=== PATIENT | female | born 1960 | race Caucasian/White ===

== ENCOUNTER 2016-10-23 14:05 | Inpatient (IN) | payer OTHER ==
[2016-10-23] MEDS ORDERED: BENADRYL INJ 50 MG VIAL IVP PRN (14:53)
[2016-10-23] MEDS ORDERED: TYLENOL 325 MG TAB PO PRN (14:53)
[2016-10-23] MEDS: NS 1000 ML 1,000 ML IV SCH (15:19)
[2016-10-23 15:25] VITALS: BMI 35.8
[2016-10-23 15:40] LABS: BASOPHILS # (AUTO) 0.1 X10^3/uL (0.0-0.1); BASOPHILS % (AUTO) 0.9 % (0.2-1.0); EOSINOPHILS # (AUTO) 0.2 x10^3/uL (0.0-0.2); EOSINOPHILS % (AUTO) 2.8 % (0.9-2.9); HEMATOCRIT 22.2 % (36.0-47.0); LYMPHOCYTES # (AUTO) 1.1 X10^3/uL (1.3-2.9); MEAN CORPUSCULAR HGB CONC 29.9 g/dL (33.0-35.0); MEAN CORPUSCULAR VOLUME 80.4 fL (80.0-100.0); MEAN PLATELET VOLUME 8.1 fL (7.4-11.0); MONOCYTES # (AUTO) 0.6 x10^3/uL (0.3-0.8); MONOCYTES % (AUTO) 9.6 % (0.0-13.0); NEUTROPHILS # (AUTO) 4.4 x10^3/uL (2.2-4.8); NEUTROPHILS % (AUTO) 68.7 % (42.0-75.0); PLATELET COUNT 209 X10^3/uL (150.0-450.0); RED BLOOD COUNT 2.76 X10^6/uL (3.5-5.4); RED CELL DISTRIBUTION WIDTH 20.2 % (11.6-16.5); WHITE BLOOD COUNT 6.4 X10^3/uL (3.6-10.0)
[2016-10-23 15:43] LABS: HEMOGLOBIN 6.6 g/dL (12.0-16.0)
[2016-10-23 15:55] LABS: ALANINE AMINOTRANSFERASE 35 Units/L (12-78); ALBUMIN 3.3 g/dL (3.4-5.0); ALKALINE PHOSPHATASE 83 Units/L (46-116); ASPARTATE AMINO TRANSFERASE 53 Units/L (15-37); BLOOD UREA NITROGEN 12 mg/dL (7-18); CALCIUM 8.9 mg/dL (8.5-10.1); CARBON DIOXIDE 30.2 mmol/L (21-32); CHLORIDE 105 mmol/L (98-107); CKMB % 3.5 % (<4); COR CA(FOR HYPOALB) 9.5 mg/dL (8.5-10.1); COR NA(FOR HYPERGLY) 145 mmol/L (136-145); CREATINE KINASE 29 Units/L (26-192); CREATINE KINASE MB < 1.0 ng/mL (0-4.0); GLUCOSE 229 mg/dL (65-99); SODIUM 142 mmol/L (136-145); TOTAL PROTEIN 8.1 g/dL (6.4-8.2); TROPONIN I 0.07 ng/mL (0-1.5); eGFR BLACK RACES > 60 (>60); eGFR NON BLACK RACES > 60 (>60)
[2016-10-23 15:59] LABS: ANISOCYTOSIS 1+; HYPOCHROMASIA 1+; PLATELET MORPHOLOGY COMMENT NORMAL (NORMAL)
[2016-10-23 16:21] LABS: IRON 19 ug/dL (50-175); TRANSFERRIN 448 mg/dL (202-364)
[2016-10-23 16:43] LABS: BILIRUBIN,URINE NEGATIVE (NEGATIVE); BLOOD/HEMOGLOBIN,URINE NEGATIVE (NEGATIVE); GLUCOSE, URINE 4+ (NEGATIVE); KETONES,URINE NEGATIVE (NEGATIVE); LEUKOCYTE ESTERASE ,URINE NEGATIVE (NEGATIVE); NITRITES,URINE NEGATIVE (NEGATIVE); PROTEIN,URINE NEGATIVE (NEGATIVE); UROBILINOGEN,URINE NORMAL (NORMAL)
[2016-10-23 16:51] LABS: APPEARANCE,URINE CLEAR (CLEAR); BACTERIA,URINE NEGATIVE /HPF (NEGATIVE); COLOR,URINE YELLOW (YELLOW); RBC,URINE RARE /HPF (NEGATIVE); SQUAMOUS EPITHELIAL CELL,UR FEW /HPF (NEGATIVE)
[2016-10-23] MEDS: NS 500 ML IV 500 ML IV ONE ×2 (17:05→23:45)
--- NOTE | 2016-10-23 18:03 | RAD ---
HISTORY: 56-year-old female with shortness of breath. Study: Single frontal view of the chest. Comparison: Chest radiograph May 02, 2016. Findings: The trachea is midline. The cardiac silhouette is stably enlarged. The lungs are clear without foc al infiltrate or effusion. Low lung volumes with bibasilar atelectasis and stable prominence of per ihilar lung markings with thickened interstitium. The bony thorax is unremarkable. IMPRESSION: 1. No acute cardiopulmonary disease. Reported By:
[2016-10-23] MEDS: PROTONIX INJ 40 MG VIAL IVP SCH (18:46)
[2016-10-23] MEDS ORDERED: HumuLIN R SC PRN (18:58)
[2016-10-23] MEDS: ROXICODONE TAB 15 MG PO PRN (19:09)
[2016-10-23] MEDS ORDERED: LASIX IVP ONE (21:00)
[2016-10-23] MEDS: PEPCID 20 MG IV PREMIX* 20 MG/50 ML BAG IV SCH (21:41)
[2016-10-23 21:43] LABS: CKMB % 3.3 % (<4); CREATINE KINASE 30 Units/L (26-192); CREATINE KINASE MB < 1.0 ng/mL (0-4.0); TROPONIN I 0.09 ng/mL (0-1.5)
[2016-10-23] MEDS ORDERED: NS 500 ML IV 0 ML IV ONE (23:22)
[2016-10-23] MEDS ORDERED: NS 500 ML IV 500 ML IV ONE (23:24)
[2016-10-24] MEDS: ROXICODONE TAB 15 MG PO PRN ×4 (00:57→19:25)
[2016-10-24 03:09] LABS: CREATINE KINASE 33 Units/L (26-192); CREATINE KINASE MB < 1.0 ng/mL (0-4.0); TROPONIN I 0.07 ng/mL (0-1.5)
[2016-10-24] MEDS: NS 1000 ML 1,000 ML IV SCH ×2 (04:22→17:11)
[2016-10-24 06:32] LABS: ALANINE AMINOTRANSFERASE 35 Units/L (12-78); ALBUMIN 3.4 g/dL (3.4-5.0); ALKALINE PHOSPHATASE 81 Units/L (46-116); ASPARTATE AMINO TRANSFERASE 53 Units/L (15-37); BLOOD UREA NITROGEN 15 mg/dL (7-18); CARBON DIOXIDE 27.8 mmol/L (21-32); CHLORIDE 102 mmol/L (98-107); COR NA(FOR HYPERGLY) 145 mmol/L (136-145); CREATININE 0.97 mg/dL (0.55-1.02); GLUCOSE 223 mg/dL (65-99); SODIUM 142 mmol/L (136-145); TOTAL PROTEIN 8.2 g/dL (6.4-8.2); eGFR BLACK RACES > 60 (>60); eGFR NON BLACK RACES > 60 (>60)
[2016-10-24 06:38] LABS: BASOPHILS # (AUTO) 0.1 X10^3/uL (0.0-0.1); BASOPHILS % (AUTO) 1.1 % (0.2-1.0); EOSINOPHILS # (AUTO) 0.2 x10^3/uL (0.0-0.2); EOSINOPHILS % (AUTO) 3.5 % (0.9-2.9); HEMATOCRIT 29.6 % (36.0-47.0); HEMOGLOBIN 9.1 g/dL (12.0-16.0); LYMPHOCYTES # (AUTO) 1.5 X10^3/uL (1.3-2.9); LYMPHOCYTES % (AUTO) 21.8 % (21.0-51.0); MEAN CORPUSCULAR HEMOGLOBIN 25.4 pg (27.0-34.0); MEAN CORPUSCULAR HGB CONC 30.6 g/dL (33.0-35.0); MEAN PLATELET VOLUME 8.6 fL (7.4-11.0); MONOCYTES # (AUTO) 0.5 x10^3/uL (0.3-0.8); MONOCYTES % (AUTO) 7.2 % (0.0-13.0); NEUTROPHILS # (AUTO) 4.5 x10^3/uL (2.2-4.8); NEUTROPHILS % (AUTO) 66.4 % (42.0-75.0); PLATELET COUNT 206 X10^3/uL (150.0-450.0); RED BLOOD COUNT 3.57 X10^6/uL (3.5-5.4); RED CELL DISTRIBUTION WIDTH 18.1 % (11.6-16.5); WHITE BLOOD COUNT 6.8 X10^3/uL (3.6-10.0)
[2016-10-24 07:27] LABS: HEMOGLOBIN A1C 5.8 % (4.5-6.2)
[2016-10-24 08:02] LABS: HYPOCHROMASIA SLIGHT; PLATELET MORPHOLOGY COMMENT NORMAL (NORMAL)
[2016-10-24 08:03] LABS: ANISOCYTOSIS SLIGHT
[2016-10-24] MEDS: PEPCID 20 MG IV PREMIX* 20 MG/50 ML BAG IV SCH ×2 (08:50→21:41)
[2016-10-24] MEDS: PROTONIX INJ 40 MG VIAL IVP SCH ×2 (08:50→21:40)
[2016-10-24] MEDS: PROzac PO SCH (08:50)
[2016-10-24] MEDS: COZAAR PO SCH (09:34)
[2016-10-24] MEDS: HEMOCYTE-PLUS PO SCH (09:34)
[2016-10-24] MEDS: LASIX PO SCH (09:34)
[2016-10-24] MEDS: VISTARIL PO PRN ×2 (10:23→21:42)
[2016-10-24 12:22] LABS: CRYPTOSPORIDIUM PARVUM ANTIGEN NEGATIVE (NEGATIVE); GIARDIA LAMBLIA ANTIGEN NEGATIVE (NEGATIVE)
--- NOTE | 2016-10-24 15:49 | DR.UPDATE ---
H&P Update History and Physical Update: HISTORY AND PHYSICAL UPDATE FOR ADMISSION 10/23/16 MS. NINA'S H&P WAS COMPLETED WITH A PRIOR VISIT IN OUR OFFICE PRIOR TO ADMISSION. SHE HAS BEEN SEEN AND EXAMINED WITH FOLLOWING CHANGES. PATIENT REPORTS SHORTNESS OF BREATH, FATIGUE, MALAISE, AND GENERALIZED WEAKNESS. SHE REPORTS SYMPTOMS HAVE GRADUALLY WORSENED. WE OBTAINED LABS IN OUR OFFICE THAT REPORTED A HEMOGLOBIN OF 6.4, WHICH WAS DOWN FROM 9.1 A COUPLE MONTHS AGO. WE WILL ADMIT PATIENT, START PEPCID, PROTONIX, TRANSFUSE 2 UNITS PRBC'S, AND CONTINUE TO MONITOR. WE WILL FOLLOW UP IN AM WITH LABS.
--- NOTE | 2016-10-24 15:56 | PCM.PROG ---
Progress Note - Progress Note for Day of Date: 10/24/16 - Subjective Subjective: PATIENT CONTINUES WITH WEAKNESS, FATIGUE, AND GENERALIZED WEAKNESS. SHE IS NOTED TO CONTINUE WITH SHORTNESS OF BREATH ON EXERTION. PATIENT HAS RECEIVED 2 UNITS PRBC'S. HEMOGLOBIN HAS IMPROVED FROM 6.6 TO 9.1. PATIENT REPORTS SHE HAS NOT HAD A HYSTERCTOMY AND NO LONGER HAS A MENSTRUAL CYCLE. PATIENT DENIES BLOODY STOOLS OR EMESIS. CBC WNL EXCEPT: H/H 9.1/29.6. CMP WNL EXCEPT: GLUCOSE 223, AST 53. CARDIAC ENZYMES WNL. EKG: SINUS RHYTHM, RATE 87. WE WILL OBTAIN STOOL STUDIES, START HEMOCYTE PLUS, AND CONTINUE TO MONITOR H/H. - Past Medical Family Social History Past Med/Fam/Surg Hx: No changes since H&P Allergies: Allergies No Known Drug Allergy Allergy (Verified 05/17/16 00:29) - Review of Systems ROS: No change since H&P - Vital Signs and I&O's Vital Signs: Temperature 98.1 F Pulse Rate [Right Brachial] 89 Respiratory Rate 20 Blood Pressure [Left Arm] 138/80 Blood Pressure [Right Arm] 166/94 Blood Pressure 143/76 O2 Sat by Pulse Oximetry 99 Intake and Output: Intake & Output 10/22/16 10/23/16 10/24/16 10/25/16 11:59 11:59 11:59 11:59 Intake Total 2285 1822 Output Total 500 3100 Balance 1785 -1278 - Physical Exam Oriented: Normal, Time, Person, Place Eyes: Normal. negative: Blurred Vision, Diplopia, Discharge, Pain, Redness, Photophobia Ear: Normal. negative: Swelling, Ecchymosis, Hemotypanum, Abrasion, Laceration Nose: Normal. negative: Injected, Discharge, Blood Throat: Normal. negative: Tonsillar Hypertrophy, Red, Exudate Respiratory: Normal Cardiovascular: Normal. negative: Murmur, Edema : Normal. negative: Dysuria, Hematuria, Frequency, Discharge, Bleeding, Auscultation: Bowel Sounds: Normal. negative: Bruit Palpation: Normal. negative: Spleen Enlarged, Liver Enlarged, Mass Pulsatile Tenderness: Normal. negative: Rebound, Guarding, Rigidity Skin: Decreased Turgur. negative: Diaphoresis, Wound, Bruising, Ecchymosis Musculoskeletal: Normal Psychiatric: Normal Mood Description: Calm, Appropriate Affect: Normal Speech Pattern: Clear, Appropriate - Laboratory and Diagnostics Result Diagrams: 10/24/16 03:50 10/24/16 03:50 Labs: Laboratory WBC 6.8 X10^3/uL (3.6-10.0) 10/24/16 03:50 RBC 3.57 X10^6/uL (3.5-5.4) 10/24/16 03:50 Hgb 9.1 g/dL (12.0-16.0) L 10/24/16 03:50 Hct 29.6 % (36.0-47.0) L 10/24/16 03:50 MCV 83.0 fL (80.0-100.0) 10/24/16 03:50 MCH 25.4 pg (27.0-34.0) L 10/24/16 03:50 MCHC 30.6 g/dL (33.0-35.0) L 10/24/16 03:50 RDW 18.1 % (11.6-16.5) H 10/24/16 03:50 Plt Count 206 X10^3/uL (150.0-450.0) 10/24/16 03:50 Plt Count Comment Adequate (ADEQUATE) 10/24/16 03:50 MPV 8.6 fL (7.4-11.0) 10/24/16 03:50 Neut % 66.4 % (42.0-75.0) 10/24/16 03:50 Lymph % 21.8 % (21.0-51.0) 10/24/16 03:50 Morrill % 7.2 % (0.0-13.0) 10/24/16 03:50 Eos % 3.5 % (0.9-2.9) H 10/24/16 03:50 Baso % 1.1 % (0.2-1.0) H 10/24/16 03:50 Neut # 4.5 x10^3/uL (2.2-4.8) 10/24/16 03:50 Lymph # 1.5 X10^3/uL (1.3-2.9) 10/24/16 03:50 Morrill # 0.5 x10^3/uL (0.3-0.8) 10/24/16 03:50 Eos # 0.2 x10^3/uL (0.0-0.2) 10/24/16 03:50 Baso # 0.1 X10^3/uL (0.0-0.1) 10/24/16 03:50 Absolute Nucleated RBC 0.2 /100WBC 10/24/16 03:50 Plt Morphology Comment Normal (NORMAL) 10/24/16 03:50 RBC Morphology Abnormal (NORMAL) A 10/24/16 03:50 Hypochromasia Slight A 10/24/16 03:50 Anisocytosis Slight A 10/24/16 03:50 Sodium 142 mmol/L (136-145) 10/24/16 03:50 Corrected Sodium 145 mmol/L (136-145) 10/24/16 03:50 Potassium 3.6 mmol/L (3.5-5.1) 10/24/16 03:50 Chloride 102 mmol/L (98-107) 10/24/16 03:50 Carbon Dioxide 27.8 mmol/L (21-32) 10/24/16 03:50 BUN 15 mg/dL (7-18) 10/24/16 03:50 Creatinine 0.97 mg/dL (0.55-1.02) 10/24/16 03:50 Est GFR (MDRD) Af Amer > 60 (>60) 10/24/16 03:50 Est GFR (MDRD) Non-Af > 60 (>60) 10/24/16 03:50 Glucose 223 mg/dL (65-99) H 10/24/16 03:50 Hemoglobin A1c 5.8 % (4.5-6.2) 10/24/16 03:50 Calcium 9.0 mg/dL (8.5-10.1) 10/24/16 03:50 Corrected Calcium TNP 10/24/16 03:50 Iron 19 ug/dL (50-175) L 10/23/16 15:20 Transferrin 448 mg/dL (202-364) H 10/23/16 15:20 Ferritin 10 ng/mL (8-252) 10/23/16 15:20 Total Bilirubin 0.60 mg/dL (0.2-1.0) 10/24/16 03:50 AST 53 Units/L (15-37) H 10/24/16 03:50 ALT 35 Units/L (12-78) 10/24/16 03:50 Alkaline Phosphatase 81 Units/L (46-116) 10/24/16 03:50 Creatine Kinase 33 Units/L (26-192) 10/24/16 02:30 CK-MB (CK-2) < 1.0 ng/mL (0-4.0) 10/24/16 02:30 CK/CKMB % Calc 3.0 % (<4) 10/24/16 02:30 Troponin I 0.07 ng/mL (0-1.5) 10/24/16 02:30 Total Protein 8.2 g/dL (6.4-8.2) 10/24/16 03:50 Albumin 3.4 g/dL (3.4-5.0) 10/24/16 03:50 Globulin 4.8 g/dL (2.5-4.5) H 10/24/16 03:50 Albumin/Globulin Ratio 0.7 Ratio (1.1-2.1) L 10/24/16 03:50 Vitamin B12 483 pg/mL (193-986) 10/23/16 15:20 Folate 15.7 ng/mL (>8.6) 10/23/16 15:20 Specimen Type Clean catch urine 10/23/16 16:28 Urine Color Yellow (YELLOW) 10/23/16 16:28 Urine Appearance Clear (CLEAR) 10/23/16 16:28 Urine pH 7.0 (5.0 - 8.0) 10/23/16 16:28 Ur Specific [place] 1.010 (1.000-1.030) 10/23/16 16:28 Urine Protein Negative (NEGATIVE) 10/23/16 16:28 Urine Glucose (UA) 4+ (NEGATIVE) 10/23/16 16:28 Urine Ketones Negative (NEGATIVE) 10/23/16 16:28 Urine Occult Blood Negative (NEGATIVE) 10/23/16 16:28 Urine Nitrite Negative (NEGATIVE) 10/23/16 16:28 Urine Bilirubin Negative (NEGATIVE) 10/23/16 16:28 Urine Urobilinogen Normal (NORMAL) 10/23/16 16:28 Ur Leukocyte Esterase Negative (NEGATIVE) 10/23/16 16:28 Urine RBC Rare /HPF (NEGATIVE) 10/23/16 16:28 Urine WBC Rare /HPF (NEGATIVE) 10/23/16 16:28 Ur Squamous Epith Cells Few /HPF (NEGATIVE) 10/23/16 16:28 Urine Bacteria Negative /HPF (NEGATIVE) 10/23/16 16:28 Ur Culture Indicated? No/not indicated 10/23/16 16:28 Stool Description 100g,formed,soft,healy 10/24/16 10:32 Stl Occult Blood (IFOB) Negative (NEGATIVE) 10/24/16 10:32 Stool for White Cells No wbc's seen (None) 10/24/16 10:32 Stl C. diff Tox B Gene Negative (NEGATIVE) 10/24/16 10:32 Stl C. diff [id number] Negative (NEGATIVE) 10/24/16 10:32 Cryptosporid parvum Ag Negative (NEGATIVE) 10/24/16 10:32 E. histolytica Antigen Negative (NEGATIVE) 10/24/16 10:32 Giardia lamblia Ag Negative (NEGATIVE) 10/24/16 10:32 Blood Type O POSITIVE 10/23/16 15:20 Antibody Screen Negative 10/23/16 15:20 Crossmatch See Detail 10/23/16 15:20 - Plan (1) Symptomatic anemia Status: Acute Plan: CONTINUE TO MONITOR H/H, CONTINUE SUPPLEMENTAL OXYGEN, OBTAIN STOOL STUDIES. (2) CHF (congestive heart failure) Status: Chronic Qualifiers: Congestive heart failure type: systolic Congestive heart failure chronicity : chronic Qualified Code(s): I50.22 - Chronic systolic (congestive) heart failure (3) GERD (gastroesophageal reflux disease) Status: Chronic Qualifiers: Esophagitis presence: with esophagitis Qualified Code(s): K21.0 - Gastro- esophageal reflux disease with esophagitis (4) History of anemia Status: Chronic (5) Hypertension Status: Chronic Qualifiers: Hypertension type: essential hypertension Qualified Code(s): I10 - Essential (primary) hypertension (6) Anxiety Status: Chronic (7) Back pain Status: Chronic Qualifiers: Back pain location: B Chronicity: C Back pain laterality: B Sciatica presence: S Sciatica laterality: S
[2016-10-24 16:01] LABS: HEMOGLOBIN 8.6 g/dL (12.0-16.0)
[2016-10-24] MEDS: SNACK - Diabetic Appropriate PO SCH (19:35)
[2016-10-25] MEDS: ROXICODONE TAB 15 MG PO PRN ×4 (01:39→20:35)
[2016-10-25 05:38] LABS: BASOPHILS # (AUTO) 0.1 X10^3/uL (0.0-0.1); BASOPHILS % (AUTO) 0.8 % (0.2-1.0); EOSINOPHILS # (AUTO) 0.3 x10^3/uL (0.0-0.2); EOSINOPHILS % (AUTO) 5.2 % (0.9-2.9); HEMATOCRIT 27.7 % (36.0-47.0); HEMOGLOBIN 8.5 g/dL (12.0-16.0); LYMPHOCYTES # (AUTO) 1.3 X10^3/uL (1.3-2.9); LYMPHOCYTES % (AUTO) 19.9 % (21.0-51.0); MEAN CORPUSCULAR HEMOGLOBIN 25.3 pg (27.0-34.0); MEAN CORPUSCULAR HGB CONC 30.9 g/dL (33.0-35.0); MEAN CORPUSCULAR VOLUME 82.1 fL (80.0-100.0); MEAN PLATELET VOLUME 8.3 fL (7.4-11.0); MONOCYTES # (AUTO) 0.4 x10^3/uL (0.3-0.8); MONOCYTES % (AUTO) 6.9 % (0.0-13.0); NEUTROPHILS # (AUTO) 4.4 x10^3/uL (2.2-4.8); NEUTROPHILS % (AUTO) 67.2 % (42.0-75.0); PLATELET COUNT 163 X10^3/uL (150.0-450.0); RED BLOOD COUNT 3.37 X10^6/uL (3.5-5.4); WHITE BLOOD COUNT 6.5 X10^3/uL (3.6-10.0)
[2016-10-25] MEDS: PATIENT'S HOME MEDICATION PO SCH (06:13)
[2016-10-25] MEDS: NS 1000 ML 1,000 ML IV SCH ×2 (06:13→20:34)
[2016-10-25 06:20] LABS: ALANINE AMINOTRANSFERASE 37 Units/L (12-78); ALKALINE PHOSPHATASE 71 Units/L (46-116); ASPARTATE AMINO TRANSFERASE 71 Units/L (15-37); BLOOD UREA NITROGEN 12 mg/dL (7-18); CALCIUM 8.6 mg/dL (8.5-10.1); CARBON DIOXIDE 28.9 mmol/L (21-32); CHLORIDE 105 mmol/L (98-107); COR CA(FOR HYPOALB) 9.4 mg/dL (8.5-10.1); COR NA(FOR HYPERGLY) 143 mmol/L (136-145); CREATININE 0.72 mg/dL (0.55-1.02); GLUCOSE 151 mg/dL (65-99); SODIUM 142 mmol/L (136-145); TOTAL PROTEIN 7.2 g/dL (6.4-8.2); eGFR BLACK RACES > 60 (>60); eGFR NON BLACK RACES > 60 (>60)
[2016-10-25 07:01] LABS: ANISOCYTOSIS SLIGHT; HYPOCHROMASIA SLIGHT; PLATELET MORPHOLOGY COMMENT NORMAL (NORMAL)
[2016-10-25] MEDS: HEMOCYTE-PLUS PO SCH (08:09)
[2016-10-25] MEDS: LASIX PO SCH (08:10)
[2016-10-25] MEDS: PROTONIX INJ 40 MG VIAL IVP SCH ×2 (08:10→20:36)
[2016-10-25] MEDS: PEPCID 20 MG IV PREMIX* 20 MG/50 ML BAG IV SCH ×2 (08:10→20:35)
[2016-10-25] MEDS: VISTARIL PO PRN ×2 (08:10→20:35)
[2016-10-25] MEDS: COZAAR PO SCH (08:10)
[2016-10-25] MEDS: PROzac PO SCH (08:10)
[2016-10-25] MEDS: SNACK - Diabetic Appropriate PO SCH (20:36)
[2016-10-26] MEDS: ROXICODONE TAB 15 MG PO PRN ×4 (02:27→20:59)
[2016-10-26 05:11] LABS: BASOPHILS # (AUTO) 0.1 X10^3/uL (0.0-0.1); EOSINOPHILS # (AUTO) 0.4 x10^3/uL (0.0-0.2); EOSINOPHILS % (AUTO) 5.8 % (0.9-2.9); HEMATOCRIT 27.6 % (36.0-47.0); HEMOGLOBIN 8.4 g/dL (12.0-16.0); LYMPHOCYTES # (AUTO) 1.1 X10^3/uL (1.3-2.9); LYMPHOCYTES % (AUTO) 17.5 % (21.0-51.0); MEAN CORPUSCULAR HEMOGLOBIN 25.4 pg (27.0-34.0); MEAN CORPUSCULAR HGB CONC 30.6 g/dL (33.0-35.0); MEAN CORPUSCULAR VOLUME 83.1 fL (80.0-100.0); MEAN PLATELET VOLUME 8.2 fL (7.4-11.0); MONOCYTES # (AUTO) 0.5 x10^3/uL (0.3-0.8); MONOCYTES % (AUTO) 7.7 % (0.0-13.0); NEUTROPHILS # (AUTO) 4.2 x10^3/uL (2.2-4.8); PLATELET COUNT 153 X10^3/uL (150.0-450.0); RED BLOOD COUNT 3.32 X10^6/uL (3.5-5.4); RED CELL DISTRIBUTION WIDTH 18.2 % (11.6-16.5); WHITE BLOOD COUNT 6.3 X10^3/uL (3.6-10.0)
[2016-10-26] MEDS: PATIENT'S HOME MEDICATION PO SCH (05:12)
[2016-10-26 05:19] LABS: ALANINE AMINOTRANSFERASE 43 Units/L (12-78); ALKALINE PHOSPHATASE 74 Units/L (46-116); ASPARTATE AMINO TRANSFERASE 76 Units/L (15-37); BLOOD UREA NITROGEN 13 mg/dL (7-18); CALCIUM 8.9 mg/dL (8.5-10.1); CHLORIDE 105 mmol/L (98-107); COR CA(FOR HYPOALB) 9.7 mg/dL (8.5-10.1); COR NA(FOR HYPERGLY) 143 mmol/L (136-145); CREATININE 0.77 mg/dL (0.55-1.02); GLUCOSE 164 mg/dL (65-99); SODIUM 141 mmol/L (136-145); TOTAL PROTEIN 7.3 g/dL (6.4-8.2); eGFR BLACK RACES > 60 (>60); eGFR NON BLACK RACES > 60 (>60)
[2016-10-26 05:50] LABS: ANISOCYTOSIS SLIGHT; HYPOCHROMASIA SLIGHT; PLATELET MORPHOLOGY COMMENT NORMAL (NORMAL)
[2016-10-26] MEDS: PEPCID 20 MG IV PREMIX* 20 MG/50 ML BAG IV SCH ×2 (08:43→20:59)
[2016-10-26] MEDS: PROzac PO SCH (08:43)
[2016-10-26] MEDS: PROTONIX INJ 40 MG VIAL IVP SCH ×2 (08:43→20:59)
[2016-10-26] MEDS: LASIX PO SCH (08:43)
[2016-10-26] MEDS: HEMOCYTE-PLUS PO SCH (08:44)
[2016-10-26] MEDS: COZAAR PO SCH (08:44)
[2016-10-26] MEDS: NS 1000 ML 1,000 ML IV SCH ×3 (08:45→20:59)
[2016-10-26] MEDS: SNACK - Diabetic Appropriate PO SCH (21:00)
[2016-10-27] MEDS: ROXICODONE TAB 15 MG PO PRN ×2 (03:41→10:15)
[2016-10-27 04:33] VITALS: BP 153/73
[2016-10-27 05:10] LABS: BASOPHILS # (AUTO) 0.1 X10^3/uL (0.0-0.1); EOSINOPHILS # (AUTO) 0.3 x10^3/uL (0.0-0.2); EOSINOPHILS % (AUTO) 5.5 % (0.9-2.9); HEMATOCRIT 28.2 % (36.0-47.0); HEMOGLOBIN 8.7 g/dL (12.0-16.0); LYMPHOCYTES # (AUTO) 1.4 X10^3/uL (1.3-2.9); LYMPHOCYTES % (AUTO) 22.7 % (21.0-51.0); MEAN CORPUSCULAR HEMOGLOBIN 25.4 pg (27.0-34.0); MEAN CORPUSCULAR VOLUME 82.1 fL (80.0-100.0); MEAN PLATELET VOLUME 8.8 fL (7.4-11.0); MONOCYTES # (AUTO) 0.6 x10^3/uL (0.3-0.8); MONOCYTES % (AUTO) 9.1 % (0.0-13.0); NEUTROPHILS # (AUTO) 3.9 x10^3/uL (2.2-4.8); NEUTROPHILS % (AUTO) 61.7 % (42.0-75.0); PLATELET COUNT 145 X10^3/uL (150.0-450.0); RED BLOOD COUNT 3.43 X10^6/uL (3.5-5.4); RED CELL DISTRIBUTION WIDTH 18.6 % (11.6-16.5); WHITE BLOOD COUNT 6.3 X10^3/uL (3.6-10.0)
[2016-10-27 05:21] LABS: ALANINE AMINOTRANSFERASE 44 Units/L (12-78); ALBUMIN 3.1 g/dL (3.4-5.0); ALKALINE PHOSPHATASE 75 Units/L (46-116); ASPARTATE AMINO TRANSFERASE 69 Units/L (15-37); BLOOD UREA NITROGEN 14 mg/dL (7-18); CALCIUM 9.1 mg/dL (8.5-10.1); CARBON DIOXIDE 29.3 mmol/L (21-32); CHLORIDE 105 mmol/L (98-107); COR CA(FOR HYPOALB) 9.8 mg/dL (8.5-10.1); COR NA(FOR HYPERGLY) 143 mmol/L (136-145); CREATININE 0.69 mg/dL (0.55-1.02); GLUCOSE 151 mg/dL (65-99); SODIUM 142 mmol/L (136-145); TOTAL PROTEIN 7.4 g/dL (6.4-8.2); eGFR BLACK RACES > 60 (>60); eGFR NON BLACK RACES > 60 (>60)
[2016-10-27] MEDS: PATIENT'S HOME MEDICATION PO SCH (05:35)
[2016-10-27 05:43] LABS: ANISOCYTOSIS SLIGHT; HYPOCHROMASIA SLIGHT; PLATELET MORPHOLOGY COMMENT NORMAL (NORMAL)
[2016-10-27] MEDS: PEPCID 20 MG IV PREMIX* 20 MG/50 ML BAG IV SCH (08:35)
[2016-10-27] MEDS: HEMOCYTE-PLUS PO SCH (08:35)
[2016-10-27] MEDS: COZAAR PO SCH (08:35)
[2016-10-27] MEDS: PROTONIX INJ 40 MG VIAL IVP SCH (08:36)
[2016-10-27] MEDS: PROzac PO SCH (08:37)
[2016-10-27] MEDS: LASIX PO SCH (08:37)
[2016-10-27] MEDS: NS 1000 ML 1,000 ML IV SCH (10:30)
== END 2016-10-27 12:45 | disposition home or self-care (01) | DRG 812 ==
LOC: MED/SURG 14:05
PROVIDERS: ADMIT Internal Medicine; ATTEND Internal Medicine
PROC: 30233N1 Transfusion of Nonautologous Red Blood Cells into Peripheral Vein, Percutaneous Approach (ICD-10-PCS; principal; 2016-10-23)
PROC: 30233N1 Transfusion of Nonautologous Red Blood Cells into Peripheral Vein, Percutaneous Approach (ICD-10-PCS; 2016-10-23)
DX: D64.89 Other specified anemias (principal); R06.02 Shortness of breath; R53.83 Other fatigue; R53.81 Other malaise; R53.1 Weakness; E11.65 Type 2 diabetes mellitus with hyperglycemia; I50.22 Chronic systolic (congestive) heart failure; K21.0 Gastro-esophageal reflux disease with esophagitis; I10 Essential (primary) hypertension; F41.8 Other specified anxiety disorders; M54.89 Other dorsalgia; B18.2 Chronic viral hepatitis C; E78.2 Mixed hyperlipidemia
CPT/HCPCS: 36415; 36430; 71010; 80053; 81001; 82270; 82550; 82553; 82607; 82728; 82746; 83036; 83540; 84466; 84484; 85014; 85018; 85025; 86850; 86900; 86901; 86922; 87045; 87205; 87328; 87329; 87336; 87427; 87493; 87899; 93005; 94760; A4216; A4222; C9113; P9016; Q0177; S0028; J1200; J1815; J1940

== ENCOUNTER 2017-01-08 11:22 | Inpatient (IN) | payer OTHER ==
[2017-01-08] MEDS ORDERED: NS 500 ML IV 500 ML IV ONE (12:15)
[2017-01-08 16:21] VITALS: BMI 34.3
[2017-01-08 16:23] LABS: BASOPHILS % (AUTO) 1.1 % (0.2-1.0); EOSINOPHILS # (AUTO) 0.3 x10^3/uL (0.0-0.2); EOSINOPHILS % (AUTO) 6.8 % (0.9-2.9); HEMATOCRIT 23.4 % (36.0-47.0); HEMOGLOBIN 7.8 g/dL (12.0-16.0); LYMPHOCYTES # (AUTO) 1.5 X10^3/uL (1.3-2.9); LYMPHOCYTES % (AUTO) 33.7 % (21.0-51.0); MEAN CORPUSCULAR HEMOGLOBIN 27.5 pg (27.0-34.0); MEAN CORPUSCULAR HGB CONC 33.1 g/dL (33.0-35.0); MEAN CORPUSCULAR VOLUME 83.2 fL (80.0-100.0); MEAN PLATELET VOLUME 8.2 fL (7.4-11.0); MONOCYTES # (AUTO) 0.4 x10^3/uL (0.3-0.8); MONOCYTES % (AUTO) 10.3 % (0.0-13.0); NEUTROPHILS # (AUTO) 2.1 x10^3/uL (2.2-4.8); NEUTROPHILS % (AUTO) 48.1 % (42.0-75.0); PLATELET COUNT 128 X10^3/uL (150.0-450.0); RED BLOOD COUNT 2.82 X10^6/uL (3.5-5.4); RED CELL DISTRIBUTION WIDTH 16.6 % (11.6-16.5); WHITE BLOOD COUNT 4.4 X10^3/uL (3.6-10.0)
[2017-01-08 16:35] LABS: ALANINE AMINOTRANSFERASE 25 Units/L (12-78); ALBUMIN 3.1 g/dL (3.4-5.0); ALKALINE PHOSPHATASE 64 Units/L (46-116); ASPARTATE AMINO TRANSFERASE 25 Units/L (15-37); BLOOD UREA NITROGEN 8 mg/dL (7-18); CALCIUM 8.6 mg/dL (8.5-10.1); CARBON DIOXIDE 33.1 mmol/L (21-32); CHLORIDE 103 mmol/L (98-107); COR CA(FOR HYPOALB) 9.3 mg/dL (8.5-10.1); CREATININE 0.81 mg/dL (0.55-1.02); GLUCOSE 97 mg/dL (65-99); SODIUM 143 mmol/L (136-145); TOTAL PROTEIN 7.3 g/dL (6.4-8.2); eGFR BLACK RACES > 60 (>60); eGFR NON BLACK RACES > 60 (>60)
[2017-01-08 16:46] LABS: ANISOCYTOSIS SLIGHT; HYPOCHROMASIA SLIGHT; PLATELET MORPHOLOGY COMMENT NORMAL (NORMAL); POIKILOCYTOSIS SLIGHT
[2017-01-08] MEDS: PEPCID 20 MG IV PREMIX* 20 MG/50 ML BAG IV SCH ×2 (16:46→21:54)
[2017-01-08] MEDS: NS 1000 ML 1,000 ML IV SCH (16:46)
[2017-01-08] MEDS ORDERED: K-LYTE EFFERVESCENT PO PRN (17:02)
[2017-01-08] MEDS ORDERED: POTASSIUM CHLORIDE LIQ 20 MEQ UDC PO PRN (17:02)
[2017-01-08] MEDS ORDERED: K-RIDER 10 MEQ/NS 100 ML 10 MEQ/100 ML BAG IV PRN (17:02)
[2017-01-08] MEDS: K-DUR TAB 20 MEQ PO PRN (17:49)
[2017-01-08] MEDS: TYLENOL 325 MG TAB PO PRN (18:02)
[2017-01-08] MEDS: BENADRYL INJ 50 MG VIAL IVP PRN (18:02)
--- NOTE | 2017-01-08 18:51 | DR.UPDATE ---
H&P Update History and Physical Update: MS. NINA WAS SEEN IN THE OFFICE TODAY. AN H&P WAS COMPLETED PRIOR TO ADMISSION. SHE HAS BASSAM SEEN AND EXAMINED WITH NO CHANGES NOTED. Changes noted: NO Yes with the following:
[2017-01-08] MEDS ORDERED: XANAX PO SCH (21:00)
[2017-01-08] MEDS: ROXICODONE TAB 5 MG PO PRN (21:55)
[2017-01-08] MEDS: PROTONIX TAB 40 MG PO SCH (21:55)
[2017-01-09] MEDS: NS 1000 ML 1,000 ML IV SCH (01:47)
[2017-01-09] MEDS: ROXICODONE TAB 5 MG PO PRN ×3 (03:30→13:55)
[2017-01-09 05:43] LABS: HEMOGLOBIN 8.9 g/dL (12.0-16.0)
[2017-01-09 08:07] LABS: EOSINOPHILS # (AUTO) 0.3 x10^3/uL (0.0-0.2); HEMOGLOBIN 8.9 g/dL (12.0-16.0); LYMPHOCYTES # (AUTO) 1.6 X10^3/uL (1.3-2.9); LYMPHOCYTES % (AUTO) 39.7 % (21.0-51.0); MEAN CORPUSCULAR HEMOGLOBIN 28.8 pg (27.0-34.0); MEAN CORPUSCULAR HGB CONC 34.1 g/dL (33.0-35.0); MEAN CORPUSCULAR VOLUME 84.4 fL (80.0-100.0); MEAN PLATELET VOLUME 8.3 fL (7.4-11.0); MONOCYTES # (AUTO) 0.3 x10^3/uL (0.3-0.8); MONOCYTES % (AUTO) 8.1 % (0.0-13.0); NEUTROPHILS # (AUTO) 1.7 x10^3/uL (2.2-4.8); NEUTROPHILS % (AUTO) 43.2 % (42.0-75.0); PLATELET COUNT 114 X10^3/uL (150.0-450.0); RED BLOOD COUNT 3.08 X10^6/uL (3.5-5.4); RED CELL DISTRIBUTION WIDTH 15.9 % (11.6-16.5)
[2017-01-09] MEDS: K-DUR TAB 20 MEQ PO PRN (08:16)
[2017-01-09] MEDS: PROTONIX TAB 40 MG PO SCH (08:16)
[2017-01-09] MEDS: PEPCID 20 MG IV PREMIX* 20 MG/50 ML BAG IV SCH (08:17)
[2017-01-09 08:18] LABS: ALANINE AMINOTRANSFERASE 20 Units/L (12-78); ALBUMIN 2.7 g/dL (3.4-5.0); ALKALINE PHOSPHATASE 53 Units/L (46-116); ASPARTATE AMINO TRANSFERASE 24 Units/L (15-37); BLOOD UREA NITROGEN 9 mg/dL (7-18); CARBON DIOXIDE 29.3 mmol/L (21-32); CHLORIDE 108 mmol/L (98-107); CREATININE 0.81 mg/dL (0.55-1.02); GLUCOSE 110 mg/dL (65-99); SODIUM 144 mmol/L (136-145); TOTAL PROTEIN 6.4 g/dL (6.4-8.2); eGFR BLACK RACES > 60 (>60); eGFR NON BLACK RACES > 60 (>60)
[2017-01-09] MEDS ORDERED: CYMBALTA PO SCH (09:00)
[2017-01-09] MEDS ORDERED: PATIENT'S HOME MEDICATION (Misc Home Med 1 TAB) PO SCH (09:00)
[2017-01-09] MEDS ORDERED: HEMOCYTE-PLUS PO SCH (09:00)
[2017-01-09] MEDS ORDERED: COZAAR PO SCH (09:00)
[2017-01-09] MEDS ORDERED: NS 500 ML IV 500 ML IV ONE ×2 (10:59→11:02)
[2017-01-09] MEDS: BENADRYL INJ 50 MG VIAL IVP PRN (11:03)
[2017-01-09] MEDS: TYLENOL 325 MG TAB PO PRN (11:03)
--- NOTE | 2017-01-09 13:55 | US ---
HISTORY: Anemia, pelvic pain. Study: Ultrasound of the pelvis Comparison: No priors Technique: transabdominal grayscale and color Doppler imaging of the pelvis is provided. Findings: The uterus measures 3.9 x 4.3 x 6.5 centimeters. Endometrium measures 4 millimeters and is empty. A small area of increased echogenicity is present within the uterine body in the myometrium posteriorl y. This may represent a small fibroid. This measures only about 2.2 centimeters in maximum dimension . Both ovaries are small. The right ovary measures 18 x 26 x 22 millimeters. The left ovary measures 19 x 29 x 32 millimeters. No solid mass is seen. Ovarian color Doppler studies are normal. There is no evidence of free cul-de-sac fluid. IMPRESSION: Findings likely indicating a small myometrial fibroid posteriorly. No leak endometrial thickening is seen. The ovaries are normal. Reported By:
[2017-01-09 16:28] VITALS: BP 157/76
[2017-01-09 17:48] LABS: HEMATOCRIT 34.4 % (36.0-47.0); HEMOGLOBIN 11.7 g/dL (12.0-16.0)
--- NOTE | 2017-01-09 23:33 | DR.CARTERD ---
- Discharge Summary for: Discharge Summary for Date of:: 01/09/17 - Admission Date Date of Admission: 01/08/17 - Admission Diagnoses Admission Diagnosis: (1) ANEMIA (2) SHORTNESS OF BREATH (3) GENERALIZED WEAKNESS (4) FATIGUE (5) HISTORY OF ANEMIA (6) GERD (7) HISTORY OF HYPERTENSION (8) H/O CHF (9) ANXIETY - Discharge Date Discharge Date: 01/09/17 - Discharge Diagnoses Discharge Diagnosis: (1) ANEMIA (2) SHORTNESS OF BREATH (3) GENERALIZED WEAKNESS (4) FATIGUE (5) HISTORY OF ANEMIA (6) GERD (7) HISTORY OF HYPERTENSION (8) H/O CHF (9) ANXIETY - Hospital Course Hospital Course: Patient presented to the hospital as a direct admission after being seen in the office for a follow up visit today with reports of weakness. Patient reported back pain and bilateral foot pain. Patient was noted with 1+ pitting edema to lower extremities. Patient underwent outpatient labs which revealed a hemoglobin of 7.3. Patient therefore admitted to the hospital for further evaluation and treatment of anemia. On arrival to the hospital labs obtained revealed a hemoglobin of 7.8. Patient received two units of PRBCs and monitored serial H&Hs. Patient's hemoglobin improved to 8.9. We transfused an additional two units of PRBC's for a total of four units. Hemoglobin improved to 11.7 and we planned for discharge. Instructions for medications and follow up were given to patient and family, both voiced understanding. Patient was discharged home in stable condition with family. - Discharge Medications Discharge Medications: Duloxetine HCl [CYMBALTA 30 MG *] 30 mg PO DAILY 01/08/17 [History] Famotidine [Pepcid] 20 mg PO BID #60 tablet 01/09/17 [Rx] Gi Cocktail [LEVSIN/Maalox/Lidoc Visc (GI COCKTAIL) *] 10 ml PO QID #90 ml 01/09 [Rx] Pantoprazole Sodium 40 mg [Protonix Tab 40 mg] 40 mg PO BID #60 tab 01/09/17 [Rx ] - Discharge Disposition Discharge Disposition: Patient is to follow up in our office on 01/15/[address] Lee in one week.
== END 2017-01-09 17:55 | disposition home or self-care (01) | DRG 812 ==
LOC: ICU 11:22
PROVIDERS: ADMIT Internal Medicine; ATTEND Internal Medicine
PROC: 30233N1 Transfusion of Nonautologous Red Blood Cells into Peripheral Vein, Percutaneous Approach (ICD-10-PCS; principal; 2017-01-08)
PROC: 30233N1 Transfusion of Nonautologous Red Blood Cells into Peripheral Vein, Percutaneous Approach (ICD-10-PCS; 2017-01-09)
PROC: 30233N1 Transfusion of Nonautologous Red Blood Cells into Peripheral Vein, Percutaneous Approach (ICD-10-PCS; 2017-01-09)
PROC: 30233N1 Transfusion of Nonautologous Red Blood Cells into Peripheral Vein, Percutaneous Approach (ICD-10-PCS; 2017-01-09)
DX: D64.89 Other specified anemias (principal); E55.9 Vitamin D deficiency, unspecified; E78.2 Mixed hyperlipidemia; E66.9 Obesity, unspecified; I10 Essential (primary) hypertension; E11.65 Type 2 diabetes mellitus with hyperglycemia; R52 Pain, unspecified; R06.02 Shortness of breath; R53.83 Other fatigue; K21.9 Gastro-esophageal reflux disease without esophagitis; F41.8 Other specified anxiety disorders; R60.0 Localized edema
CPT/HCPCS: 36415; 36430; 76856; 80053; 82270; 84132; 85014; 85018; 85025; 86850; 86900; 86901; 86922; A4222; P9016; S0028; J1200

== ENCOUNTER 2017-03-13 19:32 | Emergency (ER) | payer OTHER ==
[2017-03-13 19:40] VITALS: BP 180/92; BMI 32.4
[2017-03-13] MEDS ORDERED: PHENERGAN INJ 25 MG IM ONE (20:22)
--- NOTE | 2017-03-13 20:39 | DR.GENAD ---
HPI - HPI Comment HPI Comment: Patient complains of being nauseated with stomach feeling like he is going to vomit but she has not vomited . but has been having diarrhea. States she can drink water and farooq rober and it will stay down. States she is a patient of Dr. Castro. States she has been dizzy. States she has been trying to wean herself from Oxycontin that she has been on for years. States she has had surgery on her right foot and has been taking pain pills for that. She is having left leg swelling with erythema. States she is taking medicine for her stomach from Dr. Castro and she think it is protonix and Lomotil. - Complaint/Symptoms Chief Complaint:: pt states that she has been feeling light headed and nausous all day today. denies nausea. diarrhea began yesterday Self Treatment fo Chief Complaint: otc diarrheals not helping - Nurses notes reviewed Nurses Notes Review: Yes - Source History Provided: Patient - Mode of Arrival Mode of Arrival: Wheelchair - Timing Onset of Chief Complaint: 03/13/17 Came on: Suddenly - Duration Duration: Intermittent How lon Duration: Days - Location Location: diffuse a - Severity Severity: Moderate - Modifying Factors Worsens:: movement Improves:: nothing PMH - PMH Past Medical History: Yes Past Medical History: CHF, Hypertension Past Medical History Comment: "hemoglobin problem" Past Surgical History: Yes Surgical History: SPINNER CAP FRAME Surgery, Ortho Surgery - Family History History of Family Medical Conditions: Yes Family Medical History: Diabetes Mellitus, Cancer, [place], Heart Failure, Hypertension - Social History Do you use any recreational Drugs:: No - infectious screening Have you traveled outside the country in the last 6 months?: No ROS - Review of Systems Constitutional: No Symptoms Reported, Weakness, Loss of Appetite Eyes: No Symptoms Reported. negative: See HPI, Eye Pain, Blurred Vision, Tearing, Discharge, Photophobia, Diplopia, Other ENTM: No Symptoms Reported Respiratoy: No Symptoms Reported, See HPI, Non-Productive Cough Cardiovascular: No Symptoms Reported Gastrointestinal/Abdominal: No Symptoms Reported, Abdominal Pain, Diarrhea, Nausea, Vomiting Genitourinary: No Symptoms Reported Neurological: No Symptoms Reported Musculoskeletal: No Symptoms Reported Integumentary: No Symptoms Reported Hematologic/Lymphatic: No Symptoms Reported Endocrine: No Symptoms Reported Psychiatric: No Symptoms Reported PE - Vital Signs Vitals: Temperature 98.7 F Pulse Rate 112 Respiratory Rate 18 Blood Pressure [Left Arm] 153/73 Blood Pressure [Right Arm] 157/76 Blood Pressure 180/92 O2 Sat by Pulse Oximetry 97 - General Limitations: No Limitations General Appearance: Alert, In Distress (mild) - Head Head Exam: Normal Inspection, Atraumatic, Normocephalic - Eyes Eye exam: Normal Appearance, PERRL, EOMI. negative: Scleral Icterus, Conjunctival Injection, Nystagmus, Miosis, Mydrasis, Periorbital Swelling, Periorbital Tenderness, Other - ENT ENT Exam: Normal Exam, Normal Oropharynx, Normal External Ear Exam, Mucous Membranes Moist, TM's Normal Bilaterally External Ear Exam: Normal External Inspection TM/Canal Exam: Bilateral Normal Nose Exam: Normal Nose Exam Mouth Exam: Normal Inspection Throat Exam: Normal Inspection - Neck Neck Exam: Normal Inspection, Full ROM, Trachea Midline - Chest Chest Inspection: Normal Inspection - Respiratory Respiratory Exam: Normal Lung Sounds Bilat Respiratory Exam: Bilateral Clear to Auscultation - Cardiovascular Cardiovascular Exam: Regular Rate, Normal Rhythm, Normal Heart Sounds - Abdominal Exam Abdominal Exam: Normal Inspection, Normal Bowel Sounds, Soft, Tenderness, Guarding, Dimnished Bowel Sounds Abdominal Tenderness: Epigastrium, Suprapubic - Extremities Extremities Exam: Normal Inspection, Full ROM, Tenderness (right leg with tenderness and slight erythema), Normal Capillary Refill - Back Back Exam: Normal Inspection, Full ROM - Neurologic Neurological Exam: Alert, Oriented X3, CN II-XII Intact, Normal Gait, Reflexes Normal - Psychiatric Psychiatric Exam: Normal Affect, Normal Mood - Skin Skin Exam: Warm, Dry, Intact, Normal Color, Rash, Erythema (right lower leg with erythema and tenderness) ROR - Labs Reviewed Laboratory Results Reviewed?: Yes (all labs and x-ray results reviewed and discussed with pataient) Result Diagrams: 03/13/17 20:36 03/13/17 20:36 Laboratory: WBC 5.6 X10^3/uL (3.6-10.0) 03/13/17 20:36 RBC 4.44 X10^6/uL (3.5-5.4) 03/13/17 20:36 Hgb 13.6 g/dL (12.0-16.0) 03/13/17 20:36 Hct 40.1 % (36.0-47.0) 03/13/17 20:36 MCV 90.3 fL (80.0-100.0) 03/13/17 20:36 MCH 30.6 pg (27.0-34.0) 03/13/17 20:36 MCHC 33.9 g/dL (33.0-35.0) 03/13/17 20:36 RDW 17.9 % (11.6-16.5) H 03/13/17 20:36 Plt Count 216 X10^3/uL (150.0-450.0) 03/13/17 20:36 MPV 7.5 fL (7.4-11.0) 03/13/17 20:36 Neut % 64.3 % (42.0-75.0) 03/13/17 20:36 Lymph % 27.4 % (21.0-51.0) 03/13/17 20:36 Barton % 6.3 % (0.0-13.0) 03/13/17 20:36 Eos % 1.1 % (0.9-2.9) 03/13/17 20:36 Baso % 0.9 % (0.2-1.0) 03/13/17 20:36 Neut # 3.6 x10^3/uL (2.2-4.8) 03/13/17 20:36 Lymph # 1.5 X10^3/uL (1.3-2.9) 03/13/17 20:36 Barton # 0.4 x10^3/uL (0.3-0.8) 03/13/17 20:36 Eos # 0.1 x10^3/uL (0.0-0.2) 03/13/17 20:36 Baso # 0.1 X10^3/uL (0.0-0.1) 03/13/17 20:36 Absolute Nucleated RBC 0.0 /100WBC 03/13/17 20:36 D-Dimer 481 ng/mL (0-400) H* 03/13/17 20:36 Sodium 144 mmol/L (136-145) 03/13/17 20:36 Corrected Sodium 146 mmol/L (136-145) H 03/13/17 20:36 Potassium 3.5 mmol/L (3.5-5.1) 03/13/17 20:36 Chloride 105 mmol/L (98-107) 03/13/17 20:36 Carbon Dioxide 25.5 mmol/L (21-32) 03/13/17 20:36 BUN 12 mg/dL (7-18) 03/13/17 20:36 Creatinine 0.93 mg/dL (0.55-1.02) 03/13/17 20:36 Est GFR (MDRD) Af Amer > 60 (>60) 03/13/17 20:36 Est GFR (MDRD) Non-Af > 60 (>60) 03/13/17 20:36 Glucose 172 mg/dL (65-99) H 03/13/17 20:36 Calcium 9.9 mg/dL (8.5-10.1) 03/13/17 20:36 Corrected Calcium TNP 03/13/17 20:36 Total Bilirubin 0.40 mg/dL (0.2-1.0) 03/13/17 20:36 AST 39 Units/L (15-37) H 03/13/17 20:36 ALT 29 Units/L (12-78) 03/13/17 20:36 Alkaline Phosphatase 67 Units/L (46-116) 03/13/17 20:36 Total Protein 8.4 g/dL (6.4-8.2) H 03/13/17 20:36 Albumin 3.7 g/dL (3.4-5.0) 03/13/17 20:36 Globulin 4.7 g/dL (2.5-4.5) H 03/13/17 20:36 Albumin/Globulin Ratio 0.8 Ratio (1.1-2.1) L 03/13/17 20:36 Amylase 67 Units/L (25-115) 03/13/17 20:36 Lipase 186 Units/L (73-393) 03/13/17 20:36 - XRAY XRAY Interpreted by: Radiologist (abdominal series: Large hiatal hernia. No evidence for acute abdominal or chest process) XRAY Findings: Doppler venous studies: Negative for DVT. - Diagnosis Discharge Problem: Gastroenteritis, Hiatal hernia, Essential hypertension, early cellulits left leg, Hyperglycemia - Discharge Plan Disposition: 01 HOME, SELF-CARE Condition: Stable Prescriptions: Ciprofloxacin HCl [CIPRO 500 MG TAB *] 500 mg PO Q12H #20 tab - Follow ups/Referrals Follow ups/Referrals: Noe Castro [Primary Care Provider] - 3 days - Instructions Instructions: Viral Gastroenteritis, Adult, [id number], Cellulitis, Adult, [id number], Hiatal Hernia, Hyperglycemia, Hypertension, [id number]
[2017-03-13 20:46] LABS: BASOPHILS # (AUTO) 0.1 X10^3/uL (0.0-0.1); BASOPHILS % (AUTO) 0.9 % (0.2-1.0); EOSINOPHILS # (AUTO) 0.1 x10^3/uL (0.0-0.2); EOSINOPHILS % (AUTO) 1.1 % (0.9-2.9); HEMATOCRIT 40.1 % (36.0-47.0); HEMOGLOBIN 13.6 g/dL (12.0-16.0); LYMPHOCYTES # (AUTO) 1.5 X10^3/uL (1.3-2.9); LYMPHOCYTES % (AUTO) 27.4 % (21.0-51.0); MEAN CORPUSCULAR HEMOGLOBIN 30.6 pg (27.0-34.0); MEAN CORPUSCULAR HGB CONC 33.9 g/dL (33.0-35.0); MEAN CORPUSCULAR VOLUME 90.3 fL (80.0-100.0); MEAN PLATELET VOLUME 7.5 fL (7.4-11.0); MONOCYTES # (AUTO) 0.4 x10^3/uL (0.3-0.8); MONOCYTES % (AUTO) 6.3 % (0.0-13.0); NEUTROPHILS # (AUTO) 3.6 x10^3/uL (2.2-4.8); NEUTROPHILS % (AUTO) 64.3 % (42.0-75.0); PLATELET COUNT 216 X10^3/uL (150.0-450.0); RED BLOOD COUNT 4.44 X10^6/uL (3.5-5.4); RED CELL DISTRIBUTION WIDTH 17.9 % (11.6-16.5); WHITE BLOOD COUNT 5.6 X10^3/uL (3.6-10.0)
[2017-03-13 20:56] LABS: ALANINE AMINOTRANSFERASE 29 Units/L (12-78); ALBUMIN 3.7 g/dL (3.4-5.0); ALKALINE PHOSPHATASE 67 Units/L (46-116); AMYLASE 67 Units/L (25-115); ASPARTATE AMINO TRANSFERASE 39 Units/L (15-37); BLOOD UREA NITROGEN 12 mg/dL (7-18); CALCIUM 9.9 mg/dL (8.5-10.1); CARBON DIOXIDE 25.5 mmol/L (21-32); CHLORIDE 105 mmol/L (98-107); COR NA(FOR HYPERGLY) 146 mmol/L (136-145); CREATININE 0.93 mg/dL (0.55-1.02); LIPASE 186 Units/L (73-393); SODIUM 144 mmol/L (136-145); TOTAL PROTEIN 8.4 g/dL (6.4-8.2); eGFR BLACK RACES > 60 (>60); eGFR NON BLACK RACES > 60 (>60)
[2017-03-13] MEDS ORDERED: PHENERGAN INJ 25 MG ONE (21:10)
--- NOTE | 2017-03-13 22:22 | RAD ---
Acute abdominal series with single view chest Indication: Abdominal pain. Nausea. Comparison: Radiograph 10/23/2016 Findings: Mild cardiac silhouette enlargement is unchanged. The lungs are essentially clear without o vert edema or focal infiltrates. No large pleural effusion. There is a large hiatal hernia of the sto mach, similar to prior. The bowel gas pattern is normal. No suspicious calcifications or free air identified. Impression: No evidence for acute abdominal or chest process. Large hiatal hernia. Stable cardiomegaly. Reported By:
[2017-03-13] MEDS ORDERED: NS 1/2 1000 ML IV 1,000 ML IV ONE (22:33)
[2017-03-13] MEDS ORDERED: NS 1000 ML 500 ML IV ONE (22:51)
--- NOTE | 2017-03-13 23:44 | VAS ---
HISTORY: Left leg pain, swelling Study: Left lower extremity venous Doppler ultrasound Comparison: None TECHNIQUE: Multiple zafar scale and color flow Doppler images of the deep venous system were obtained of the right and left lower extremity. FINDINGS: The deep venous system of the right and left lower extremities were evaluated from the level of the c ommon femoral vein through the popliteal vein. Normal color flow and augmentation can be observed. In addition, normal compression is seen throughout the deep venous system. IMPRESSION: 1. Negative for DVT. Reported By:
[2017-03-13] MEDS ORDERED: LEVAQUIN TAB 500 MG PO STA (23:55)
== END 2017-03-14 00:15 | disposition home or self-care (01) ==
LOC: ER 19:43
DX: K52.89 Other specified noninfective gastroenteritis and colitis (principal); K44.9 Diaphragmatic hernia without obstruction or gangrene; L03.116 Cellulitis of left lower limb; I10 Essential (primary) hypertension; I51.7 Cardiomegaly; R73.9 Hyperglycemia, unspecified; R79.1 Abnormal coagulation profile
CPT/HCPCS: 36415; 74022; 80053; 82150; 83690; 85025; 85378; 93970; 96365; 96372; 99283; A4222; J2550

== ENCOUNTER 2017-04-04 15:23 | Emergency (ER) | payer OTHER ==
[2017-04-04 15:42] VITALS: BP 118/52; BMI 32.0
[2017-04-04] MEDS ORDERED: CLEOCIN 300 MG IV PREMIX 300 MG/50 ML BAG IV ONE (17:53)
--- NOTE | 2017-04-04 17:55 | DR.GENAD ---
HPI - PCP Primary Care Physician: DR. STEVENS - Complaint/Symptoms Chief Complaint Doctors Comments: Patient presents with bilateral lower extremity pain and erythema for alteast one according to paitine. The pain is sharp, worse with ambulation, mildly severe. 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 Past Surgical History Comment: SURGERY ON BOTH FEET, TUBALIGATION - Family History History of Family Medical Conditions: Yes Family Medical History: Diabetes Mellitus, Cancer, [place], Heart Failure - Social History Does patient currently use any type of tobacco product: No Have you used tobacco products in the last 12 months: No Type of Tobacco Use: None Do you use any recreational Drugs:: No Lives With: Family Lives Where: Home - infectious screening In the last 2 months have you had wt loss of >10#?: NO Have you had fever, night sweats or hemotysis?: No Have you traveled outside the country in the last 6 months?: No Isolation: Standard ROS - Review of Systems Eyes: No Symptoms Reported ENTM: No Symptoms Reported Respiratoy: No Symptoms Reported Cardiovascular: No Symptoms Reported Gastrointestinal/Abdominal: No Symptoms Reported Genitourinary: No Symptoms Reported Neurological: No Symptoms Reported Musculoskeletal: No Symptoms Reported Integumentary: No Symptoms Reported Hematologic/Lymphatic: No Symptoms Reported Endocrine: No Symptoms Reported Psychiatric: No Symptoms Reported All Other Systems: Reviewed and Negative PE - Vital Signs Vitals: Temperature 98.2 F Pulse Rate [Right Brachial] 86 Pulse Rate 86 Respiratory Rate 20 Blood Pressure [Left Arm] 153/73 Blood Pressure [Right Arm] 118/52 Blood Pressure 118/52 O2 Sat by Pulse Oximetry 98 - General Limitations: No Limitations General Appearance: Alert, In No Apparent Distress - Head Head Exam: Normal Inspection, Atraumatic - ENT ENT Exam: Normal Exam External Ear Exam: Normal External Inspection TM/Canal Exam: Bilateral Normal Nose Exam: Normal Nose Exam Mouth Exam: Normal Inspection Throat Exam: Normal Inspection - Neck Neck Exam: Normal Inspection - Chest Chest Inspection: Normal Inspection - Respiratory Respiratory Exam: Normal Lung Sounds Bilat Respiratory Exam: Bilateral Clear to Auscultation - Cardiovascular Cardiovascular Exam: Regular Rate, Normal Rhythm - Abdominal Exam Abdominal Exam: Normal Inspection, Normal Bowel Sounds Abdominal Tenderness: negative: RUQ, RLQ, LUQ, LLQ, Epigastrium, Suprapubic, Diffuse, Mild, Moderate, Severe, Other - Extremities Extremities Exam: Normal Inspection, Tenderness (erythema bilateral mid lower extremity), Edema - Back Back Exam: Normal Inspection, Full ROM - Neurologic Neurological Exam: Alert, Oriented X3, CN II-XII Intact - Psychiatric Psychiatric Exam: Normal Affect - Skin Skin Exam: Warm, Dry, Intact Course - Treatment Treatment: Clindamycin 900mg IV, b/c pending - Reevaluation 1st: Improved ROR - Labs Reviewed Result Diagrams: 04/04/17 18:08 04/04/17 18:08 Laboratory: WBC 3.9 X10^3/uL (3.6-10.0) 04/04/17 18:08 RBC 3.40 X10^6/uL (3.5-5.4) L 04/04/17 18:08 Hgb 10.5 g/dL (12.0-16.0) L 04/04/17 18:08 Hct 31.4 % (36.0-47.0) L 04/04/17 18:08 MCV 92.5 fL (80.0-100.0) 04/04/17 18:08 MCH 30.8 pg (27.0-34.0) 04/04/17 18:08 MCHC 33.3 g/dL (33.0-35.0) 04/04/17 18:08 RDW 15.7 % (11.6-16.5) 04/04/17 18:08 Plt Count 150 X10^3/uL (150.0-450.0) 04/04/17 18:08 MPV 8.0 fL (7.4-11.0) 04/04/17 18:08 Neut % 52.9 % (42.0-75.0) 04/04/17 18:08 Lymph % 32.2 % (21.0-51.0) 04/04/17 18:08 [place] % 8.0 % (0.0-13.0) 04/04/17 18:08 Eos % 5.8 % (0.9-2.9) H 04/04/17 18:08 Baso % 1.1 % (0.2-1.0) H 04/04/17 18:08 Neut # 2.1 x10^3/uL (2.2-4.8) L 04/04/17 18:08 Lymph # 1.3 X10^3/uL (1.3-2.9) 04/04/17 18:08 [place] # 0.3 x10^3/uL (0.3-0.8) 04/04/17 18:08 Eos # 0.2 x10^3/uL (0.0-0.2) 04/04/17 18:08 Baso # 0.0 X10^3/uL (0.0-0.1) 04/04/17 18:08 Absolute Nucleated RBC 0.0 /100WBC 04/04/17 18:08 Sodium 140 mmol/L (136-145) 04/04/17 18:08 Corrected Sodium 140 mmol/L (136-145) 04/04/17 18:08 Potassium 3.8 mmol/L (3.5-5.1) 04/04/17 18:08 Chloride 103 mmol/L (98-107) 04/04/17 18:08 Carbon Dioxide 35.5 mmol/L (21-32) H 04/04/17 18:08 BUN 9 mg/dL (7-18) 04/04/17 18:08 Creatinine 0.99 mg/dL (0.55-1.02) 04/04/17 18:08 Est GFR (MDRD) Af Amer > 60 (>60) 04/04/17 18:08 Est GFR (MDRD) Non-Af > 60 (>60) 04/04/17 18:08 Glucose 113 mg/dL (65-99) H 04/04/17 18:08 Calcium 9.7 mg/dL (8.5-10.1) 04/04/17 18:08 C-Reactive Protein 13.10 mg/L (0-3.0) H 04/04/17 18:08 - Diagnosis Discharge Problem: Bilateral lower leg cellulitis - Discharge Plan Condition: Stable - Follow ups/Referrals Follow ups/Referrals: Noe Stevens [Primary Care Provider] - 3 days - Instructions
[2017-04-04] MEDS ORDERED: CLEOCIN 600 MG IV PREMIX 600 MG/50 ML BAG IV SCH (18:00)
[2017-04-04] MEDS ORDERED: CLEOCIN VIAL 600 MG ONE ×2 (18:04→18:06)
[2017-04-04] MEDS ORDERED: CLEOCIN IV ONE (18:04)
[2017-04-04] MEDS ORDERED: D5W 100 ML IV 100 ML IV ONE (18:18)
[2017-04-04 18:20] LABS: BASOPHILS % (AUTO) 1.1 % (0.2-1.0); EOSINOPHILS # (AUTO) 0.2 x10^3/uL (0.0-0.2); EOSINOPHILS % (AUTO) 5.8 % (0.9-2.9); HEMATOCRIT 31.4 % (36.0-47.0); HEMOGLOBIN 10.5 g/dL (12.0-16.0); LYMPHOCYTES # (AUTO) 1.3 X10^3/uL (1.3-2.9); LYMPHOCYTES % (AUTO) 32.2 % (21.0-51.0); MEAN CORPUSCULAR HEMOGLOBIN 30.8 pg (27.0-34.0); MEAN CORPUSCULAR HGB CONC 33.3 g/dL (33.0-35.0); MEAN CORPUSCULAR VOLUME 92.5 fL (80.0-100.0); MONOCYTES # (AUTO) 0.3 x10^3/uL (0.3-0.8); NEUTROPHILS # (AUTO) 2.1 x10^3/uL (2.2-4.8); NEUTROPHILS % (AUTO) 52.9 % (42.0-75.0); PLATELET COUNT 150 X10^3/uL (150.0-450.0); RED CELL DISTRIBUTION WIDTH 15.7 % (11.6-16.5); WHITE BLOOD COUNT 3.9 X10^3/uL (3.6-10.0)
[2017-04-04 18:24] LABS: BLOOD UREA NITROGEN 9 mg/dL (7-18); CALCIUM 9.7 mg/dL (8.5-10.1); CARBON DIOXIDE 35.5 mmol/L (21-32); CHLORIDE 103 mmol/L (98-107); COR NA(FOR HYPERGLY) 140 mmol/L (136-145); CREATININE 0.99 mg/dL (0.55-1.02); SODIUM 140 mmol/L (136-145); eGFR BLACK RACES > 60 (>60); eGFR NON BLACK RACES > 60 (>60)
[2017-04-04] MEDS ORDERED: NS 100 ML IV 100 ML IV ONE (18:26)
[2017-04-04] MEDS ORDERED: CLEOCIN ONE (20:09)
[2017-04-04] MEDS ORDERED: CLEOCIN PO SCH (22:00)
== END 2017-04-04 20:36 | disposition home or self-care (01) ==
LOC: ER 15:52
DX: L03.116 Cellulitis of left lower limb (principal)
CPT/HCPCS: 36415; 80048; 85025; 86140; 87040; 96365; 96374; 99283; 99284; A4222; S0077

== ENCOUNTER 2017-09-23 13:56 | Inpatient (IN) | payer OTHER ==
[2017-09-23] MEDS ORDERED: TYLENOL 325 MG TAB PO PRN (15:17)
[2017-09-23] MEDS ORDERED: BENADRYL INJ 50 MG VIAL IVP PRN (15:17)
[2017-09-23] MEDS ORDERED: NS 500 ML IV 500 ML IV ONE (15:17)
[2017-09-23 15:48] LABS: BASOPHILS % (AUTO) 0.7 % (0.2-1.0); EOSINOPHILS # (AUTO) 0.1 x10^3/uL (0.0-0.2); EOSINOPHILS % (AUTO) 1.8 % (0.9-2.9); LYMPHOCYTES # (AUTO) 1.3 X10^3/uL (1.3-2.9); LYMPHOCYTES % (AUTO) 38.7 % (21.0-51.0); MEAN CORPUSCULAR HEMOGLOBIN 26.4 pg (27.0-34.0); MEAN CORPUSCULAR HGB CONC 31.1 g/dL (33.0-35.0); MEAN CORPUSCULAR VOLUME 84.8 fL (80.0-100.0); MEAN PLATELET VOLUME 7.5 fL (7.4-11.0); MONOCYTES # (AUTO) 0.4 x10^3/uL (0.3-0.8); MONOCYTES % (AUTO) 12.4 % (0.0-13.0); NEUTROPHILS # (AUTO) 1.6 x10^3/uL (2.2-4.8); NEUTROPHILS % (AUTO) 46.4 % (42.0-75.0); PLATELET COUNT 96 X10^3/uL (150.0-450.0); RED BLOOD COUNT 2.22 X10^6/uL (3.5-5.4); RED CELL DISTRIBUTION WIDTH 21.6 % (11.6-16.5); WHITE BLOOD COUNT 3.5 X10^3/uL (3.6-10.0)
[2017-09-23 16:00] LABS: HEMATOCRIT 18.8 % (36.0-47.0); HEMOGLOBIN 5.9 g/dL (12.0-16.0)
[2017-09-23 16:01] LABS: ALANINE AMINOTRANSFERASE 31 Units/L (12-78); ALBUMIN 3.2 g/dL (3.4-5.0); ALKALINE PHOSPHATASE 52 Units/L (46-116); ASPARTATE AMINO TRANSFERASE 20 Units/L (15-37); BLOOD UREA NITROGEN 18 mg/dL (7-18); CALCIUM 8.7 mg/dL (8.5-10.1); CARBON DIOXIDE 27.9 mmol/L (21-32); CHLORIDE 103 mmol/L (98-107); COR CA(FOR HYPOALB) 9.3 mg/dL (8.5-10.1); COR NA(FOR HYPERGLY) 139 mmol/L (136-145); CREATININE 0.83 mg/dL (0.55-1.02); SODIUM 138 mmol/L (136-145); TOTAL PROTEIN 6.7 g/dL (6.4-8.2); eGFR BLACK RACES > 60 (>60); eGFR NON BLACK RACES > 60 (>60)
[2017-09-23 16:05] LABS: ANISOCYTOSIS 2+; PLATELET MORPHOLOGY COMMENT ABNORMAL (NORMAL)
[2017-09-23] MEDS: NS 1000 ML 1,000 ML IV SCH (16:07)
[2017-09-23 16:50] VITALS: BMI 34.9
[2017-09-23] MEDS ORDERED: LEVSIN/MAALOX/LIDOC VISC PO PRN (17:55)
[2017-09-23] MEDS ORDERED: ZANAFLEX PO PRN (17:55)
[2017-09-23] MEDS: NORCO 10/325 TAB PO PRN (19:17)
[2017-09-23] MEDS: PROTONIX INJ 40 MG VIAL IVP SCH (20:38)
[2017-09-23] MEDS: PEPCID 20 MG IV PREMIX* 20 MG/50 ML BAG IV SCH (20:38)
[2017-09-23] MEDS: XANAX PO PRN (20:38)
[2017-09-23] MEDS: NEURONTIN CAP 300 MG PO SCH (20:38)
[2017-09-23] MEDS ORDERED: NS 250 ML IV 250 ML IV ONE (21:45)
[2017-09-24] MEDS: NORCO 10/325 TAB PO PRN ×3 (03:05→19:15)
[2017-09-24] MEDS: NS 1000 ML 1,000 ML IV SCH ×3 (06:22→18:15)
[2017-09-24 06:38] LABS: ALANINE AMINOTRANSFERASE 30 Units/L (12-78); ALBUMIN 3.2 g/dL (3.4-5.0); ALKALINE PHOSPHATASE 56 Units/L (46-116); ASPARTATE AMINO TRANSFERASE 23 Units/L (15-37); BLOOD UREA NITROGEN 13 mg/dL (7-18); CALCIUM 8.2 mg/dL (8.5-10.1); CARBON DIOXIDE 24.8 mmol/L (21-32); CHLORIDE 104 mmol/L (98-107); COR CA(FOR HYPOALB) 8.8 mg/dL (8.5-10.1); COR NA(FOR HYPERGLY) 141 mmol/L (136-145); CREATININE 0.82 mg/dL (0.55-1.02); SODIUM 140 mmol/L (136-145); TOTAL PROTEIN 6.8 g/dL (6.4-8.2); eGFR BLACK RACES > 60 (>60); eGFR NON BLACK RACES > 60 (>60)
[2017-09-24 06:41] LABS: BASOPHILS # (AUTO) 0.1 X10^3/uL (0.0-0.1); BASOPHILS % (AUTO) 1.5 % (0.2-1.0); EOSINOPHILS # (AUTO) 0.1 x10^3/uL (0.0-0.2); EOSINOPHILS % (AUTO) 2.5 % (0.9-2.9); HEMATOCRIT 26.4 % (36.0-47.0); LYMPHOCYTES # (AUTO) 1.6 X10^3/uL (1.3-2.9); LYMPHOCYTES % (AUTO) 42.8 % (21.0-51.0); MEAN CORPUSCULAR HEMOGLOBIN 28.1 pg (27.0-34.0); MEAN CORPUSCULAR HGB CONC 33.5 g/dL (33.0-35.0); MEAN CORPUSCULAR VOLUME 83.7 fL (80.0-100.0); MEAN PLATELET VOLUME 8.1 fL (7.4-11.0); MONOCYTES # (AUTO) 0.4 x10^3/uL (0.3-0.8); MONOCYTES % (AUTO) 10.8 % (0.0-13.0); NEUTROPHILS # (AUTO) 1.6 x10^3/uL (2.2-4.8); NEUTROPHILS % (AUTO) 42.4 % (42.0-75.0); PLATELET COUNT 94 X10^3/uL (150.0-450.0); RED BLOOD COUNT 3.16 X10^6/uL (3.5-5.4); RED CELL DISTRIBUTION WIDTH 18.5 % (11.6-16.5); WHITE BLOOD COUNT 3.8 X10^3/uL (3.6-10.0)
[2017-09-24 06:46] LABS: HEMOGLOBIN 8.9 g/dL (12.0-16.0)
[2017-09-24] MEDS: COZAAR PO SCH (08:47)
[2017-09-24] MEDS: NEURONTIN CAP 300 MG PO SCH ×2 (08:47→20:36)
[2017-09-24] MEDS: HEMOCYTE-PLUS PO SCH (08:47)
[2017-09-24] MEDS: PROTONIX INJ 40 MG VIAL IVP SCH ×2 (08:47→20:36)
[2017-09-24] MEDS: PEPCID 20 MG IV PREMIX* 20 MG/50 ML BAG IV SCH ×2 (08:48→20:36)
[2017-09-24] MEDS ORDERED: LOSARTAN POTASSIUM 100 MG PO SCH (09:00)
[2017-09-24 09:40] LABS: HEMATOCRIT 27.8 % (36.0-47.0)
[2017-09-24 14:02] LABS: HEMATOCRIT 27.9 % (36.0-47.0); HEMOGLOBIN 9.2 g/dL (12.0-16.0)
[2017-09-24 18:28] LABS: HEMATOCRIT 28.2 % (36.0-47.0); HEMOGLOBIN 9.1 g/dL (12.0-16.0)
[2017-09-24] MEDS: TOPROL XL PO SCH (20:36)
[2017-09-24] MEDS: XANAX PO PRN (21:05)
[2017-09-24 23:01] LABS: HEMATOCRIT 26.9 % (36.0-47.0); HEMOGLOBIN 8.7 g/dL (12.0-16.0)
[2017-09-25] MEDS: NORCO 10/325 TAB PO PRN ×3 (03:17→19:33)
[2017-09-25 06:11] LABS: BASOPHILS % (AUTO) 0.8 % (0.2-1.0); EOSINOPHILS # (AUTO) 0.1 x10^3/uL (0.0-0.2); HEMATOCRIT 27.7 % (36.0-47.0); LYMPHOCYTES # (AUTO) 1.7 X10^3/uL (1.3-2.9); LYMPHOCYTES % (AUTO) 31.1 % (21.0-51.0); MEAN CORPUSCULAR HEMOGLOBIN 27.6 pg (27.0-34.0); MEAN CORPUSCULAR HGB CONC 32.5 g/dL (33.0-35.0); MONOCYTES # (AUTO) 0.6 x10^3/uL (0.3-0.8); MONOCYTES % (AUTO) 10.5 % (0.0-13.0); NEUTROPHILS % (AUTO) 55.6 % (42.0-75.0); PLATELET COUNT 93 X10^3/uL (150.0-450.0); RED BLOOD COUNT 3.26 X10^6/uL (3.5-5.4); RED CELL DISTRIBUTION WIDTH 18.5 % (11.6-16.5); WHITE BLOOD COUNT 5.5 X10^3/uL (3.6-10.0)
[2017-09-25] MEDS: NS 1000 ML 1,000 ML IV SCH ×3 (06:34→19:15)
[2017-09-25 06:42] LABS: ALANINE AMINOTRANSFERASE 30 Units/L (12-78); ALBUMIN 3.3 g/dL (3.4-5.0); ALKALINE PHOSPHATASE 53 Units/L (46-116); ASPARTATE AMINO TRANSFERASE 20 Units/L (15-37); BLOOD UREA NITROGEN 12 mg/dL (7-18); CALCIUM 8.4 mg/dL (8.5-10.1); CARBON DIOXIDE 25.7 mmol/L (21-32); CHLORIDE 105 mmol/L (98-107); COR NA(FOR HYPERGLY) 143 mmol/L (136-145); CREATININE 0.73 mg/dL (0.55-1.02); SODIUM 141 mmol/L (136-145); TOTAL PROTEIN 6.8 g/dL (6.4-8.2); eGFR BLACK RACES > 60 (>60); eGFR NON BLACK RACES > 60 (>60)
[2017-09-25] MEDS: PEPCID 20 MG IV PREMIX* 20 MG/50 ML BAG IV SCH ×2 (09:00→20:48)
[2017-09-25] MEDS: NEURONTIN CAP 300 MG PO SCH ×2 (09:01→20:48)
[2017-09-25] MEDS: PROTONIX INJ 40 MG VIAL IVP SCH ×2 (09:01→20:48)
[2017-09-25] MEDS: HEMOCYTE-PLUS PO SCH (09:01)
[2017-09-25] MEDS: COZAAR PO SCH (09:12)
[2017-09-25 10:44] LABS: HEMATOCRIT 27.9 % (36.0-47.0)
--- NOTE | 2017-09-25 10:58 | DR.UPDATE ---
H&P Update History and Physical Update: WAS SEEN IN THE OFFICE TODAY FOR A REVIEW OF HER LABS. HGB WAS FOUND TO BE 6.6. PATIENT REPORTED COMPLAINTS OF GENERALIZED WEAKNESS. PATIENT WAS ADMITTED TO THE HOSPITAL FOR FURTHER EVALUATION AND TREATMENT OF ANEMIA. WE PLAN TO TRANSFUSE TWO UNITS OF PACKED RED BLOOD CELLS AND MONITOR HEMOGLOBIN AND HEMATOCRIT EVERY FOUR HOURS. Changes noted: NO Yes with the following:
--- NOTE | 2017-09-25 11:00 | DR.UPDATE ---
H&P Update History and Physical Update: History and Physical reviewed and patient examined. Changes noted: YES Yes with the following: WAS SEEN IN THE OFFICE TODAY FOR A REVIEW OF HER LABS. HGB WAS FOUND TO BE 6.6. PATIENT REPORTED COMPLAINTS OF GENERALIZED WEAKNESS. PATIENT WAS ADMITTED TO THE HOSPITAL FOR FURTHER EVALUATION AND TREATMENT OF ANEMIA. WE PLAN TO TRANSFUSE TWO UNITS OF PACKED RED BLOOD CELLS AND MONITOR HEMOGLOBIN AND HEMATOCRIT EVERY FOUR HOURS.
--- NOTE | 2017-09-25 11:09 | PCM.PROG ---
Progress Note - Progress Note for Day of Date: 09/24/17 - Subjective Subjective: WAS ADMITTED FOR ANEMIA. SHE RECEIVED TWO UNITS OF PACKED RED BLOOD CELLS LAST NIGHT. TODAY, SHE IS ALERT AND ORIENTED, LYING IN BED ON MORNING ROUNDS. SHE CONTINUES WITH COMPLAINTS OF GENERALIZED WEAKNESS. ON EXAMINATION, HEART IS REGULAR IN RATE AND RHYTHM. BILATERAL LUNGS ARE NOTED TO BE CLEAR TO AUSCULTATION. ABDOMEN IS ROUND, SOFT, AND NON-TENDER WITH NORMAL BOWEL SOUNDS NOTED IN ALL QUADRANTS. THERE IS NORMAL RANGE OF MOTION NOTED TO ALL EXTREMITIES. HER VITALS THIS MORNING ARE 98.4-95-20-98%-169/84. LABS WERE OBTAINED THIS MORNING. ABNORMAL LAB VALUES INCLUDE THE FOLLOWING: RBC 3.16, HGB 8.9, HCT 26.4, PLT COUNT 94, GLUCOSE 152, CALCIUM 8.2, ALBUMIN 3.2. TODAY, WE WILL CONTINUE TO MONITOR H&H EVERY FOUR HOURS AND WILL TRANSFUSE ADDITION UNITS OF PACKED RED BLOOD CELLS SHOULD HER HEMOGLOBIN FALL BELOW 7. OTHERWISE, WE WILL FOLLOW UP WITH AM LABS AND CONTINUE TO MONITOR PATIENT. - Past Medical Family Social History Past Med/Fam/Surg Hx: No changes since H&P Allergies: Allergies No Known Drug Allergies Allergy (Verified 07/10/17 13:56) - Review of Systems ROS: No change since H&P - Vital Signs and I&O's Vital Signs: Temperature 97.1 F Pulse Rate [Apical] 78 Respiratory Rate 15 Blood Pressure [Left Arm] 131/67 Blood Pressure [Right Arm] 170/84 Blood Pressure 160/87 O2 Sat by Pulse Oximetry 97 Intake and Output: Intake & Output 09/22/17 09/23/17 09/24/17 09/25/17 11:59 11:59 11:59 11:59 Intake Total 2095 3533 Balance 2096 3533 - Physical Exam Oriented: Normal Eyes: Normal Ear: Normal Nose: Normal Throat: Normal Respiratory: Normal Cardiovascular: Normal : Normal Auscultation: Bowel Sounds: Normal Palpation: Normal Tenderness: Normal Skin: Normal Musculoskeletal: Normal Psychiatric: Normal Mood Description: Calm Affect: Normal Speech Pattern: Clear, Appropriate - Laboratory and Diagnostics Result Diagrams: 09/25/17 10:35 09/25/17 05:35 Labs: Laboratory WBC 5.5 X10^3/uL (3.6-10.0) 09/25/17 05:35 RBC 3.26 X10^6/uL (3.5-5.4) L 09/25/17 05:35 Hgb 9.0 g/dL (12.0-16.0) L 09/25/17 10:35 Hct 27.9 % (36.0-47.0) L 09/25/17 10:35 MCV 85.0 fL (80.0-100.0) 09/25/17 05:35 MCH 27.6 pg (27.0-34.0) 09/25/17 05:35 MCHC 32.5 g/dL (33.0-35.0) L 09/25/17 05:35 RDW 18.5 % (11.6-16.5) H 09/25/17 05:35 Plt Count 93 X10^3/uL (150.0-450.0) L 09/25/17 05:35 Plt Count Comment Decreased (ADEQUATE) A 09/23/17 15:35 MPV 8.0 fL (7.4-11.0) 09/25/17 05:35 Neut % (Auto) 55.6 % (42.0-75.0) 09/25/17 05:35 Lymph % (Auto) 31.1 % (21.0-51.0) 09/25/17 05:35 [place] % (Auto) 10.5 % (0.0-13.0) 09/25/17 05:35 Eos % (Auto) 2.0 % (0.9-2.9) 09/25/17 05:35 Baso % (Auto) 0.8 % (0.2-1.0) 09/25/17 05:35 Neut # (Auto) 3.0 x10^3/uL (2.2-4.8) 09/25/17 05:35 Lymph # (Auto) 1.7 X10^3/uL (1.3-2.9) 09/25/17 05:35 [place] # (Auto) 0.6 x10^3/uL (0.3-0.8) 09/25/17 05:35 Eos # (Auto) 0.1 x10^3/uL (0.0-0.2) 09/25/17 05:35 Baso # (Auto) 0.0 X10^3/uL (0.0-0.1) 09/25/17 05:35 Absolute Nucleated RBC 0.2 /100WBC 09/25/17 05:35 Plt Morphology Comment Abnormal (NORMAL) A 09/23/17 15:35 RBC Morphology Abnormal (NORMAL) A 09/23/17 15:35 Anisocytosis 2+ A 09/23/17 15:35 Sodium 141 mmol/L (136-145) 09/25/17 05:35 Corrected Sodium 143 mmol/L (136-145) 09/25/17 05:35 Potassium 3.8 mmol/L (3.5-5.1) 09/25/17 05:35 Chloride 105 mmol/L (98-107) 09/25/17 05:35 Carbon Dioxide 25.7 mmol/L (21-32) 09/25/17 05:35 BUN 12 mg/dL (7-18) 09/25/17 05:35 Creatinine 0.73 mg/dL (0.55-1.02) 09/25/17 05:35 Est GFR (MDRD) Af Amer > 60 (>60) 09/25/17 05:35 Est GFR (MDRD) Non-Af > 60 (>60) 09/25/17 05:35 Glucose 166 mg/dL (65-99) H 09/25/17 05:35 Calcium 8.4 mg/dL (8.5-10.1) L 09/25/17 05:35 Corrected Calcium 9.0 mg/dL (8.5-10.1) 09/25/17 05:35 Total Bilirubin 0.30 mg/dL (0.2-1.0) 09/25/17 05:35 AST 20 Units/L (15-37) 09/25/17 05:35 ALT 30 Units/L (12-78) 09/25/17 05:35 Alkaline Phosphatase 53 Units/L (46-116) 09/25/17 05:35 Total Protein 6.8 g/dL (6.4-8.2) 09/25/17 05:35 Albumin 3.3 g/dL (3.4-5.0) L 09/25/17 05:35 Globulin 3.5 g/dL (2.5-4.5) 09/25/17 05:35 Albumin/Globulin Ratio 0.9 Ratio (1.1-2.1) L 09/25/17 05:35 Blood Type O POSITIVE 09/23/17 15:35 Antibody Screen Negative 09/23/17 15:35 Crossmatch See Detail 09/23/17 15:35 - Plan (1) Anemia Status: Acute Qualifiers: Anemia type: iron deficiency Iron deficiency anemia type: chronic blood loss Qualified Code(s): D50.0 - Iron deficiency anemia secondary to blood loss (chronic) Plan: MONITOR H&H Q4H AND TRANSFUSE IF HGB FALLS BELOW 7, CONTINUE TO MONITOR
[2017-09-25 15:11] LABS: HEMATOCRIT 30.8 % (36.0-47.0); HEMOGLOBIN 9.8 g/dL (12.0-16.0)
[2017-09-25 19:20] LABS: HEMATOCRIT 29.7 % (36.0-47.0); HEMOGLOBIN 9.8 g/dL (12.0-16.0)
[2017-09-25] MEDS: TOPROL XL PO SCH (20:48)
[2017-09-25] MEDS: XANAX PO PRN (20:50)
[2017-09-25 23:09] LABS: HEMATOCRIT 28.7 % (36.0-47.0); HEMOGLOBIN 9.2 g/dL (12.0-16.0)
[2017-09-26] MEDS: NORCO 10/325 TAB PO PRN ×3 (03:20→18:56)
[2017-09-26 06:02] LABS: BASOPHILS # (AUTO) 0.1 X10^3/uL (0.0-0.1); BASOPHILS % (AUTO) 0.9 % (0.2-1.0); EOSINOPHILS # (AUTO) 0.1 x10^3/uL (0.0-0.2); EOSINOPHILS % (AUTO) 2.5 % (0.9-2.9); HEMATOCRIT 28.9 % (36.0-47.0); HEMOGLOBIN 9.4 g/dL (12.0-16.0); LYMPHOCYTES # (AUTO) 1.6 X10^3/uL (1.3-2.9); LYMPHOCYTES % (AUTO) 26.6 % (21.0-51.0); MEAN CORPUSCULAR HEMOGLOBIN 27.9 pg (27.0-34.0); MEAN CORPUSCULAR HGB CONC 32.5 g/dL (33.0-35.0); MEAN CORPUSCULAR VOLUME 85.8 fL (80.0-100.0); MEAN PLATELET VOLUME 8.4 fL (7.4-11.0); MONOCYTES # (AUTO) 0.4 x10^3/uL (0.3-0.8); MONOCYTES % (AUTO) 7.1 % (0.0-13.0); NEUTROPHILS # (AUTO) 3.7 x10^3/uL (2.2-4.8); NEUTROPHILS % (AUTO) 62.9 % (42.0-75.0); PLATELET COUNT 105 X10^3/uL (150.0-450.0); RED BLOOD COUNT 3.36 X10^6/uL (3.5-5.4); RED CELL DISTRIBUTION WIDTH 19.2 % (11.6-16.5); WHITE BLOOD COUNT 5.9 X10^3/uL (3.6-10.0)
[2017-09-26 06:23] LABS: ALANINE AMINOTRANSFERASE 35 Units/L (12-78); ALBUMIN 3.3 g/dL (3.4-5.0); ALKALINE PHOSPHATASE 57 Units/L (46-116); ASPARTATE AMINO TRANSFERASE 31 Units/L (15-37); BLOOD UREA NITROGEN 13 mg/dL (7-18); CALCIUM 8.7 mg/dL (8.5-10.1); CARBON DIOXIDE 28.8 mmol/L (21-32); CHLORIDE 104 mmol/L (98-107); COR CA(FOR HYPOALB) 9.3 mg/dL (8.5-10.1); COR NA(FOR HYPERGLY) 143 mmol/L (136-145); CREATININE 0.81 mg/dL (0.55-1.02); SODIUM 142 mmol/L (136-145); TOTAL PROTEIN 6.9 g/dL (6.4-8.2); eGFR BLACK RACES > 60 (>60); eGFR NON BLACK RACES > 60 (>60)
[2017-09-26] MEDS: PROTONIX INJ 40 MG VIAL IVP SCH ×2 (10:03→21:18)
[2017-09-26] MEDS: COZAAR PO SCH (10:03)
[2017-09-26] MEDS: NEURONTIN CAP 300 MG PO SCH ×2 (10:03→21:19)
[2017-09-26] MEDS: HEMOCYTE-PLUS PO SCH (10:04)
[2017-09-26] MEDS: PEPCID 20 MG IV PREMIX* 20 MG/50 ML BAG IV SCH ×2 (10:11→21:18)
[2017-09-26] MEDS: NS 1000 ML 1,000 ML IV SCH (21:15)
[2017-09-26] MEDS: TOPROL XL PO SCH (21:18)
[2017-09-26] MEDS: XANAX PO PRN (21:19)
--- NOTE | 2017-09-26 21:41 | PCM.PROG ---
Progress Note - Progress Note for Day of Date: 09/25/17 - Subjective Subjective: WAS ADMITTED FOR ANEMIA. SHE RECEIVED TWO UNITS OF PACKED RED BLOOD CELLS ON ADMISSION. TODAY, SHE IS ALERT AND ORIENTED, LYING IN BED ON MORNING ROUNDS. SHE CONTINUES WITH COMPLAINTS OF GENERALIZED WEAKNESS. ON EXAMINATION, HEART IS REGULAR IN RATE AND RHYTHM. BILATERAL LUNGS ARE NOTED TO BE CLEAR TO AUSCULTATION. ABDOMEN IS ROUND, SOFT, AND NON-TENDER WITH NORMAL BOWEL SOUNDS NOTED IN ALL QUADRANTS. THERE IS NORMAL RANGE OF MOTION NOTED TO ALL EXTREMITIES. HER VITALS THIS MORNING ARE 97.1-78-15-97%-170/84. LABS WERE OBTAINED THIS MORNING. ABNORMAL LAB VALUES INCLUDE THE FOLLOWING: RBC 3.26, HGB 9.0, HCT 27.7, PLT COUNT 93, GLUCOSE 166, CALCIUM 8.4, ALBUMIN 3.3. HEMOGLOBIN DID FALL DURING THE NIGHT TO 8.7. TODAY, WE WILL CONTINUE TO MONITOR H&H EVERY FOUR HOURS AND WILL TRANSFUSE ADDITIONAL UNITS OF PACKED RED BLOOD CELLS SHOULD HER HEMOGLOBIN FALL BELOW 7. OTHERWISE, WE WILL FOLLOW UP WITH AM LABS AND CONTINUE TO MONITOR PATIENT. - Past Medical Family Social History Past Med/Fam/Surg Hx: No changes since H&P Allergies: Allergies No Known Drug Allergies Allergy (Verified 07/10/17 13:56) - Review of Systems ROS: No change since H&P - Vital Signs and I&O's Vital Signs: Temperature 98.4 F Pulse Rate [Apical] 72 Respiratory Rate 19 Blood Pressure [Left Arm] 131/67 Blood Pressure [Right Arm] 154/64 Blood Pressure 160/87 O2 Sat by Pulse Oximetry 96 Intake and Output: Intake & Output 09/24/17 09/25/17 09/26/17 09/27/17 11:59 11:59 11:59 11:59 Intake Total 2095 3533 3041 1180 Balance 2095 3533 3041 1180 - Physical Exam Oriented: Normal Eyes: Normal Ear: Normal Nose: Normal Throat: Normal Respiratory: Normal Cardiovascular: Normal : Normal Auscultation: Bowel Sounds: Normal Palpation: Normal Tenderness: Normal Skin: Normal Musculoskeletal: Normal Psychiatric: Normal Mood Description: Calm Affect: Normal Speech Pattern: Clear, Appropriate - Laboratory and Diagnostics Result Diagrams: 09/26/17 05:30 09/26/17 05:30 Labs: Laboratory WBC 5.9 X10^3/uL (3.6-10.0) 09/26/17 05:30 RBC 3.36 X10^6/uL (3.5-5.4) L 09/26/17 05:30 Hgb 9.4 g/dL (12.0-16.0) L 09/26/17 05:30 Hct 28.9 % (36.0-47.0) L 09/26/17 05:30 MCV 85.8 fL (80.0-100.0) 09/26/17 05:30 MCH 27.9 pg (27.0-34.0) 09/26/17 05:30 MCHC 32.5 g/dL (33.0-35.0) L 09/26/17 05:30 RDW 19.2 % (11.6-16.5) H 09/26/17 05:30 Plt Count 105 X10^3/uL (150.0-450.0) L 09/26/17 05:30 Plt Count Comment Decreased (ADEQUATE) A 09/23/17 15:35 MPV 8.4 fL (7.4-11.0) 09/26/17 05:30 Neut % (Auto) 62.9 % (42.0-75.0) 09/26/17 05:30 Lymph % (Auto) 26.6 % (21.0-51.0) 09/26/17 05:30 [place] % (Auto) 7.1 % (0.0-13.0) 09/26/17 05:30 Eos % (Auto) 2.5 % (0.9-2.9) 09/26/17 05:30 Baso % (Auto) 0.9 % (0.2-1.0) 09/26/17 05:30 Neut # (Auto) 3.7 x10^3/uL (2.2-4.8) 09/26/17 05:30 Lymph # (Auto) 1.6 X10^3/uL (1.3-2.9) 09/26/17 05:30 [place] # (Auto) 0.4 x10^3/uL (0.3-0.8) 09/26/17 05:30 Eos # (Auto) 0.1 x10^3/uL (0.0-0.2) 09/26/17 05:30 Baso # (Auto) 0.1 X10^3/uL (0.0-0.1) 09/26/17 05:30 Absolute Nucleated RBC 0.2 /100WBC 09/26/17 05:30 Plt Morphology Comment Abnormal (NORMAL) A 09/23/17 15:35 RBC Morphology Abnormal (NORMAL) A 09/23/17 15:35 Anisocytosis 2+ A 09/23/17 15:35 Sodium 142 mmol/L (136-145) 09/26/17 05:30 Corrected Sodium 143 mmol/L (136-145) 09/26/17 05:30 Potassium 3.9 mmol/L (3.5-5.1) 09/26/17 05:30 Chloride 104 mmol/L (98-107) 09/26/17 05:30 Carbon Dioxide 28.8 mmol/L (21-32) 09/26/17 05:30 BUN 13 mg/dL (7-18) 09/26/17 05:30 Creatinine 0.81 mg/dL (0.55-1.02) 09/26/17 05:30 Est GFR (MDRD) Af Amer > 60 (>60) 09/26/17 05:30 Est GFR (MDRD) Non-Af > 60 (>60) 09/26/17 05:30 Glucose 150 mg/dL (65-99) H 09/26/17 05:30 Calcium 8.7 mg/dL (8.5-10.1) 09/26/17 05:30 Corrected Calcium 9.3 mg/dL (8.5-10.1) 09/26/17 05:30 Total Bilirubin 0.30 mg/dL (0.2-1.0) 09/26/17 05:30 AST 31 Units/L (15-37) 09/26/17 05:30 ALT 35 Units/L (12-78) 09/26/17 05:30 Alkaline Phosphatase 57 Units/L (46-116) 09/26/17 05:30 Total Protein 6.9 g/dL (6.4-8.2) 09/26/17 05:30 Albumin 3.3 g/dL (3.4-5.0) L 09/26/17 05:30 Globulin 3.6 g/dL (2.5-4.5) 09/26/17 05:30 Albumin/Globulin Ratio 0.9 Ratio (1.1-2.1) L 09/26/17 05:30 Blood Type O POSITIVE 09/23/17 15:35 Antibody Screen Negative 09/23/17 15:35 Crossmatch See Detail 09/23/17 15:35 - Plan (1) Anemia Status: Acute Qualifiers: Anemia type: iron deficiency Iron deficiency anemia type: chronic blood loss Qualified Code(s): D50.0 - Iron deficiency anemia secondary to blood loss (chronic) Plan: MONITOR H&H Q4H AND TRANSFUSE IF HGB FALLS BELOW 7, CONTINUE HEMOCYTE, CONTINUE TO MONITOR (2) Abdominal pain Status: Acute Qualifiers: Abdominal location: generalized Qualified Code(s): R10.84 - Generalized abdominal pain Plan: CONTINUE NORCO, CONTINUE GI COCKTAIL, PEPCID 20MG IV Q12H, PROTONIX 40MG IV BID, CONTINUE TO MONITOR (3) Anxiety Status: Chronic Plan: CONTINUE XANAX (4) GERD (gastroesophageal reflux disease) Status: Chronic Qualifiers: Esophagitis presence: with esophagitis Qualified Code(s): K21.0 - Gastro- esophageal reflux disease with esophagitis Plan: PEPCID 20MG IV Q12H, PROTONIX 40MG IV BID, CONTINUE TO MONITOR (5) Hypertension Status: Chronic Qualifiers: Hypertension type: essential hypertension Qualified Code(s): I10 - Essential (primary) hypertension Plan: CONTINUE COZAAR, CONTINUE TOPROL, CONTINUE TO MONITOR
[2017-09-27] MEDS: NORCO 10/325 TAB PO PRN ×2 (03:25→11:07)
[2017-09-27 06:38] LABS: ALANINE AMINOTRANSFERASE 37 Units/L (12-78); ALBUMIN 3.3 g/dL (3.4-5.0); ALKALINE PHOSPHATASE 56 Units/L (46-116); ASPARTATE AMINO TRANSFERASE 34 Units/L (15-37); BLOOD UREA NITROGEN 14 mg/dL (7-18); CALCIUM 8.9 mg/dL (8.5-10.1); CARBON DIOXIDE 26.3 mmol/L (21-32); CHLORIDE 104 mmol/L (98-107); COR CA(FOR HYPOALB) 9.5 mg/dL (8.5-10.1); COR NA(FOR HYPERGLY) 141 mmol/L (136-145); CREATININE 0.76 mg/dL (0.55-1.02); SODIUM 140 mmol/L (136-145); eGFR BLACK RACES > 60 (>60); eGFR NON BLACK RACES > 60 (>60)
[2017-09-27 06:59] LABS: BASOPHILS # (AUTO) 0.1 X10^3/uL (0.0-0.1); EOSINOPHILS # (AUTO) 0.1 x10^3/uL (0.0-0.2); EOSINOPHILS % (AUTO) 2.4 % (0.9-2.9); HEMATOCRIT 29.6 % (36.0-47.0); HEMOGLOBIN 9.5 g/dL (12.0-16.0); LYMPHOCYTES # (AUTO) 1.8 X10^3/uL (1.3-2.9); LYMPHOCYTES % (AUTO) 32.7 % (21.0-51.0); MEAN CORPUSCULAR HEMOGLOBIN 28.2 pg (27.0-34.0); MEAN CORPUSCULAR HGB CONC 32.1 g/dL (33.0-35.0); MEAN CORPUSCULAR VOLUME 87.9 fL (80.0-100.0); MEAN PLATELET VOLUME 8.6 fL (7.4-11.0); MONOCYTES # (AUTO) 0.4 x10^3/uL (0.3-0.8); MONOCYTES % (AUTO) 7.8 % (0.0-13.0); NEUTROPHILS % (AUTO) 56.1 % (42.0-75.0); PLATELET COUNT 106 X10^3/uL (150.0-450.0); RED BLOOD COUNT 3.37 X10^6/uL (3.5-5.4); RED CELL DISTRIBUTION WIDTH 18.9 % (11.6-16.5); WHITE BLOOD COUNT 5.4 X10^3/uL (3.6-10.0)
[2017-09-27] MEDS: HEMOCYTE-PLUS PO SCH (09:51)
[2017-09-27] MEDS: NEURONTIN CAP 300 MG PO SCH (09:51)
[2017-09-27] MEDS: COZAAR PO SCH (09:51)
[2017-09-27] MEDS: PEPCID 20 MG IV PREMIX* 20 MG/50 ML BAG IV SCH ×2 (09:52→09:53)
[2017-09-27] MEDS: PROTONIX INJ 40 MG VIAL IVP SCH (09:52)
[2017-09-27] MEDS: NS 1000 ML 1,000 ML IV SCH (11:09)
[2017-09-27 11:50] VITALS: BP 161/93
== END 2017-09-27 11:15 | disposition home or self-care (01) | DRG 812 ==
LOC: UNDOADMIN 13:56 → ICU 13:56
PROVIDERS: ADMIT Internal Medicine; ATTEND Internal Medicine
PROC: 30233N1 Transfusion of Nonautologous Red Blood Cells into Peripheral Vein, Percutaneous Approach (ICD-10-PCS; principal; 2017-09-23)
PROC: 30233N1 Transfusion of Nonautologous Red Blood Cells into Peripheral Vein, Percutaneous Approach (ICD-10-PCS; 2017-09-23)
DX: D50.0 Iron deficiency anemia secondary to blood loss (chronic) (principal); M51.16 Intervertebral disc disorders with radiculopathy, lumbar region; I10 Essential (primary) hypertension; E78.2 Mixed hyperlipidemia; E03.8 Other specified hypothyroidism; E55.9 Vitamin D deficiency, unspecified; F32.89 Other specified depressive episodes; F41.8 Other specified anxiety disorders; E66.9 Obesity, unspecified; K21.0 Gastro-esophageal reflux disease with esophagitis; R10.84 Generalized abdominal pain
CPT/HCPCS: 36415; 36430; 80053; 85014; 85018; 85025; 86850; 86900; 86901; 86922; A4216; A4222; C9113; P9016; S0028; J1200

== ENCOUNTER 2017-10-22 07:37 | Day surgery (SDC) | payer OTHER ==
[2017-10-22] MEDS ORDERED: D5 LR 1000 ML 1,000 ML IV ONE (07:49)
[2017-10-22] MEDS ORDERED: DIPRIVAN VIAL 20 ML ONE (09:15)
[2017-10-22 10:00] VITALS: BP 146/70
== END 2017-10-22 10:05 | disposition home or self-care (01) ==
LOC: SURG1 07:37
PROVIDERS: ATTEND Internal Medicine Gastroenterology
PROC: 0DJ08ZZ Inspection of Upper Intestinal Tract, Via Natural or Artificial Opening Endoscopic (ICD-10-PCS; principal; 2017-10-22 08:30)
PROC: 0DB68ZX Excision of Stomach, Via Natural or Artificial Opening Endoscopic, Diagnostic (ICD-10-PCS; principal; 2017-10-22 08:30)
DX: K25.9 Gastric ulcer, unspecified as acute or chronic, without hemorrhage or perforation (principal); R10.13 Epigastric pain; K21.9 Gastro-esophageal reflux disease without esophagitis; K44.9 Diaphragmatic hernia without obstruction or gangrene; K29.60 Other gastritis without bleeding; K20.8 Other esophagitis; D64.89 Other specified anemias
CPT/HCPCS: A4217; J3490; J7120

== ENCOUNTER 2017-10-26 11:46 | Emergency (ER) | payer OTHER ==
[2017-10-26 11:58] VITALS: BMI 34.7
[2017-10-26] MEDS ORDERED: LOPRESSOR TAB 50 MG PO ONE (12:15)
[2017-10-26] MEDS ORDERED: LOPRESSOR TAB 25 MG PO ONE (12:15)
--- NOTE | 2017-10-26 12:15 | DR.GENAD ---
HPI - PCP Primary Care Physician: RODNEY - Complaint/Symptoms Chief Complaint Doctors Comments: Patient states that her blood pressure was elevated while at home this morning. The home health nurse reported the pressure 211 systolic. Patient states that she usually takes metoprolol 75mg at bedtime but did not take her medication on last night; she did take the losartin 100mg last night. Chief Complaint:: PT C/O HIGH BP. 211/154 AT HOME - Source History Provided: Patient - Mode of Arrival Mode of Arrival: Ambulatory - Timing Onset of Chief Complaint: 10/26/17 PMH - PMH Past Medical History: Yes Past Medical History: Anemia, CHF, Hypertension Past Surgical History: Yes Surgical History: [employer]IE[employer] Surgery, Ortho Surgery - Family History History of Family Medical Conditions: Yes Family Medical History: Diabetes Mellitus, Cancer, [place], Hypertension - Social History Does patient currently use any type of tobacco product: No Have you used tobacco products in the last 12 months: No Type of Tobacco Use: None Does any household member use tobacco: No Alcohol Use: None Do you use any recreational Drugs:: No Lives With: Family Lives Where: Home - infectious screening In the last 2 months have you had wt loss of >10#?: NO Have you traveled outside the country in the last 6 months?: No Isolation: Standard ROS - Review of Systems Constitutional: Diaphoresis ENTM: No Symptoms Reported Respiratoy: No Symptoms Reported Cardiovascular: No Symptoms Reported Gastrointestinal/Abdominal: No Symptoms Reported Genitourinary: No Symptoms Reported Neurological: No Symptoms Reported Musculoskeletal: No Symptoms Reported Integumentary: No Symptoms Reported Hematologic/Lymphatic: No Symptoms Reported Endocrine: No Symptoms Reported Psychiatric: No Symptoms Reported PE - Vital Signs Vitals: Temperature 99.9 F Pulse Rate [Left Brachial] 65 Pulse Rate 76 Respiratory Rate 16 Blood Pressure [Left Arm] 154/74 Blood Pressure [Right Arm] 161/93 Blood Pressure 184/92 O2 Sat by Pulse Oximetry 95 - General Limitations: No Limitations General Appearance: Alert, In No Apparent Distress - Head Head Exam: Normal Inspection, Atraumatic - Eyes Eye exam: Normal Appearance, PERRL, EOMI - ENT ENT Exam: Normal Exam External Ear Exam: Normal External Inspection TM/Canal Exam: Bilateral Normal Nose Exam: Normal Nose Exam Mouth Exam: Normal Inspection Throat Exam: Normal Inspection - Neck Neck Exam: Normal Inspection - Chest Chest Inspection: Normal Inspection - Respiratory Respiratory Exam: Normal Lung Sounds Bilat Respiratory Exam: Bilateral Clear to Auscultation - Cardiovascular Cardiovascular Exam: Regular Rate, Normal Rhythm - Abdominal Exam Abdominal Exam: Normal Inspection, Normal Bowel Sounds Abdominal Tenderness: negative: RUQ, RLQ, LUQ, LLQ, Epigastrium, Suprapubic, Diffuse, Mild, Moderate, Severe, Other - Extremities Extremities Exam: Normal Inspection, Full ROM - Back Back Exam: Normal Inspection, Full ROM - Neurologic Neurological Exam: Alert, Oriented X3, CN II-XII Intact - Psychiatric Psychiatric Exam: Normal Affect - Skin Skin Exam: Warm, Dry, Intact Course - Treatment Treatment: Patient given her usual dose of metropolol 75mg; BP decreased to 154/ 74. Patient instructed to continue to take medications as instructed by her primary care physician - Diagnosis Discharge Problem: Hypertension Qualifiers: Hypertension type: unspecified Qualified Code(s): I10 - Essential (primary) hypertension - Discharge Plan Condition: Stable - Follow ups/Referrals Follow ups/Referrals: Noe Castro [Primary Care Provider] - 3 days - Instructions
[2017-10-26] MEDS ORDERED: LOPRESSOR TAB 50 MG ONE (12:17)
[2017-10-26 12:33] VITALS: BP 154/74
== END 2017-10-26 13:00 | disposition home or self-care (01) ==
LOC: ER 12:03
DX: I10 Essential (primary) hypertension (principal)
CPT/HCPCS: 99282

== ENCOUNTER 2018-01-18 12:45 | Observation (INO) ==
[2018-01-18] MEDS ORDERED: NS 1000 ML 1,000 ML ONE ×2 (12:46→13:57)
[2018-01-18] MEDS ORDERED: NS 1000 ML 1,000 ML IV ONE (13:02)
[2018-01-18] MEDS: NS 1000 ML 1,000 ML IV SCH ×2 (14:00→23:19)
[2018-01-18 14:12] LABS: BASOPHILS % (AUTO) 0.7 % (0.2-1.0); EOSINOPHILS # (AUTO) 0.1 x10^3/uL (0.0-0.2); EOSINOPHILS % (AUTO) 1.9 % (0.9-2.9); LYMPHOCYTES # (AUTO) 0.9 X10^3/uL (1.3-2.9); MONOCYTES # (AUTO) 0.4 x10^3/uL (0.3-0.8); NEUTROPHILS # (AUTO) 3.6 x10^3/uL (2.2-4.8); RED BLOOD COUNT 2.53 X10^6/uL (3.5-5.4)
[2018-01-18 14:17] LABS: BILIRUBIN,URINE NEGATIVE (NEGATIVE); BLOOD/HEMOGLOBIN,URINE 2+ (NEGATIVE); GLUCOSE, URINE NEGATIVE (NEGATIVE); KETONES,URINE NEGATIVE (NEGATIVE); LEUKOCYTE ESTERASE ,URINE NEGATIVE (NEGATIVE); NITRITES,URINE NEGATIVE (NEGATIVE); PROTEIN,URINE 2+ (NEGATIVE); UROBILINOGEN,URINE NORMAL (NORMAL)
[2018-01-18 14:23] LABS: APPEARANCE,URINE CLEAR (CLEAR); COLOR,URINE YELLOW (YELLOW)
[2018-01-18 14:27] LABS: HEMATOCRIT 21.6 % (36.0-47.0); LYMPHOCYTES % (AUTO) 18.3 % (21.0-51.0); MEAN CORPUSCULAR HEMOGLOBIN 26.8 pg (27.0-34.0); MEAN CORPUSCULAR HGB CONC 31.4 g/dL (33.0-35.0); MEAN CORPUSCULAR VOLUME 85.4 fL (80.0-100.0); MONOCYTES % (AUTO) 7.6 % (0.0-13.0); NEUTROPHILS % (AUTO) 71.5 % (42.0-75.0); PLATELET COUNT 118 X10^3/uL (150.0-450.0); RED CELL DISTRIBUTION WIDTH 17.8 % (11.6-16.5); WHITE BLOOD COUNT 5.1 X10^3/uL (3.6-10.0)
[2018-01-18 14:30] LABS: SQUAMOUS EPITHELIAL CELL,UR RARE /HPF (NEGATIVE)
[2018-01-18 14:31] LABS: BACTERIA,URINE NEGATIVE /HPF (NEGATIVE)
[2018-01-18 14:46] LABS: HEMOGLOBIN 6.8 g/dL (12.0-16.0)
[2018-01-18 14:47] LABS: HYPOCHROMASIA SLIGHT; PLATELET MORPHOLOGY COMMENT NORMAL (NORMAL)
[2018-01-18 15:07] LABS: ASPARTATE AMINO TRANSFERASE 18 Units/L (15-37); BLOOD UREA NITROGEN 10 mg/dL (7-18); CALCIUM 7.7 mg/dL (8.5-10.1); CARBON DIOXIDE 25.7 mmol/L (21-32); CHLORIDE 106 mmol/L (98-107); COR NA(FOR HYPERGLY) 139 mmol/L (136-145); CREATININE 1.12 mg/dL (0.55-1.02); SODIUM 138 mmol/L (136-145); eGFR NON BLACK RACES 53 (>60)
[2018-01-18 15:08] LABS: ALANINE AMINOTRANSFERASE 20 Units/L (12-78); ALBUMIN 2.8 g/dL (3.4-5.0); ALKALINE PHOSPHATASE 53 Units/L (46-116); CKMB % 1.4 % (<4); COR CA(FOR HYPOALB) 8.7 mg/dL (8.5-10.1); CREATINE KINASE 43 Units/L (26-192); CREATINE KINASE MB 0.6 ng/mL (0-4.0); TOTAL PROTEIN 6.1 g/dL (6.4-8.2); TROPONIN I 0.01 ng/mL (0-1.5)
[2018-01-18] MEDS ORDERED: ZANAFLEX PO PRN (16:35)
--- NOTE | 2018-01-18 16:35 | RAD ---
Indication: CHF. Exam: Portable chest Comparison: 07/16/2017 Findings: The heart is mildly enlarged but unchanged. The pulmonary vessels are normal. There is over lying EKG lead artifact. No consolidation or effusion is seen. The bones are intact. There is a moder ate hiatal hernia which is unchanged. Impression: Overlying artifact limiting the exam otherwise, stable with no acute abnormality seen. Reported By:
[2018-01-18] MEDS ORDERED: TYLENOL 325 MG TAB PO ONE (16:44)
[2018-01-18] MEDS ORDERED: BENADRYL INJ 50 MG VIAL IVP ONE (16:44)
[2018-01-18 17:05] VITALS: BMI 38.0
[2018-01-18] MEDS: NORCO 10/325 TAB PO PRN ×2 (17:35→23:33)
[2018-01-18] MEDS ORDERED: NS 500 ML IV 500 ML IV ONE (17:57)
[2018-01-18] MEDS ORDERED: POTASSIUM CHL 60 MEQ/NS 0.45% 500 ML IV PRN (19:19)
[2018-01-18] MEDS ORDERED: POTASSIUM CHL 40 MEQ/NS 0.45% 500 ML IV PRN (19:19)
[2018-01-18] MEDS ORDERED: K-LYTE EFFERVESCENT PO PRN (19:19)
[2018-01-18] MEDS ORDERED: K-RIDER 10 MEQ/NS 100 ML 10 MEQ/100 ML BAG IV PRN (19:19)
[2018-01-18] MEDS ORDERED: POTASSIUM CHLORIDE LIQ 20 MEQ UDC PO PRN (19:19)
[2018-01-18] MEDS ORDERED: NORCO 10/325 TAB PO SCH (21:00)
[2018-01-18] MEDS: MAGNESIUM SULFATE 1 GRAM/100 mL PREMIX 1 GM/100 ML BAG IV PRN (21:47)
[2018-01-19] MEDS: MAGNESIUM SULFATE 1 GRAM/100 mL PREMIX 1 GM/100 ML BAG IV PRN (02:59)
[2018-01-19] MEDS: NORCO 10/325 TAB PO PRN ×3 (05:42→18:08)
[2018-01-19 05:59] LABS: BASOPHILS % (AUTO) 1.3 % (0.2-1.0); EOSINOPHILS # (AUTO) 0.2 x10^3/uL (0.0-0.2); EOSINOPHILS % (AUTO) 4.9 % (0.9-2.9); HEMATOCRIT 28.2 % (36.0-47.0); HEMOGLOBIN 9.1 g/dL (12.0-16.0); LYMPHOCYTES # (AUTO) 1.2 X10^3/uL (1.3-2.9); LYMPHOCYTES % (AUTO) 34.4 % (21.0-51.0); MEAN CORPUSCULAR HEMOGLOBIN 27.4 pg (27.0-34.0); MEAN CORPUSCULAR HGB CONC 32.4 g/dL (33.0-35.0); MEAN CORPUSCULAR VOLUME 84.5 fL (80.0-100.0); MEAN PLATELET VOLUME 8.2 fL (7.4-11.0); MONOCYTES # (AUTO) 0.4 x10^3/uL (0.3-0.8); NEUTROPHILS # (AUTO) 1.7 x10^3/uL (2.2-4.8); NEUTROPHILS % (AUTO) 47.4 % (42.0-75.0); PLATELET COUNT 108 X10^3/uL (150.0-450.0); RED BLOOD COUNT 3.33 X10^6/uL (3.5-5.4); RED CELL DISTRIBUTION WIDTH 17.3 % (11.6-16.5); WHITE BLOOD COUNT 3.5 X10^3/uL (3.6-10.0)
[2018-01-19 06:39] LABS: ALANINE AMINOTRANSFERASE 21 Units/L (12-78); ALKALINE PHOSPHATASE 56 Units/L (46-116); ASPARTATE AMINO TRANSFERASE 24 Units/L (15-37); BLOOD UREA NITROGEN 10 mg/dL (7-18); CALCIUM 7.9 mg/dL (8.5-10.1); CARBON DIOXIDE 26.4 mmol/L (21-32); CHLORIDE 104 mmol/L (98-107); COR CA(FOR HYPOALB) 8.7 mg/dL (8.5-10.1); COR NA(FOR HYPERGLY) 137 mmol/L (136-145); CREATININE 0.89 mg/dL (0.55-1.02); MAGNESIUM 2.5 mg/dL (1.7-2.9); SODIUM 136 mmol/L (136-145); TOTAL PROTEIN 6.6 g/dL (6.4-8.2); eGFR NON BLACK RACES > 60 (>60)
[2018-01-19] MEDS: NS 1000 ML 1,000 ML IV SCH ×3 (07:28→22:05)
[2018-01-19] MEDS ORDERED: LEXAPRO ONE (07:46)
[2018-01-19] MEDS: LEXAPRO PO SCH (08:31)
[2018-01-19] MEDS: COZAAR PO SCH (08:31)
[2018-01-19] MEDS: PEPCID 20 MG IV PREMIX* 20 MG/50 ML BAG IV SCH (18:15)
[2018-01-19] MEDS ORDERED: NORMODYNE INJ 20 MG VIAL IVP PRN (18:50)
[2018-01-19] MEDS: XANAX PO PRN (20:54)
[2018-01-19] MEDS: PROTONIX INJ 40 MG VIAL IVP SCH (20:54)
--- NOTE | 2018-01-19 21:27 | DR.H&P ---
H&P - History & Physical for Day of: H&P Date: 01/18/18 - Chief Complaint Chief Complaint: WEAKNESS, LETHARGIC - History of Present Illness History of Present Illness: IS A 57 YEAR OLD PATIENT OF OURS WHO PRESENTED TO THE EMERGENCY ROOM VIA EMS FOR COMPLAINTS OF DROWSINESS AND WEAKNESS. EMS REPORTED THAT ON ARRIVAL TO PATIENTS HOME, PATIENT WAS NOTED TO BE LETHARGIC AND IN AND OUT OF CONSCIOUSNESS WITH SNORING RESPIRATIONS. HER BLOOD PRESSURE WAS NOTED TO BE 54/30. SHE REMAINED LETHARGIC ON ARRIVAL TO THE EMERGENCY DEPARTMENT, BUT EVENTUALLY BECAME MORE ALERT AND ADMITTED TO TAKING A ZANAFLEX ABOUT TWO HOURS PRIOR TO ARRIVAL DUE TO BACK PAIN. ON ARRIVAL, VITALS WERE 97.6-64-17-97%-93/49. LABS WERE OBTAINED. ABNORMAL LAB VALUES INCLUDE THE FOLLOWING: RBC 2.53, HGB 6.8, HCT 21.6, PLT COUNT 118, POTASSIUM 3.3, CREATININE 1.12, GLUCOSE 154, CALCIUM 7.7, TOTAL PROTEIN 6.1, ALBUMIN 2.8. CARDIAC ENZYMES WITHIN NORMAL LIMITS. EKG REVEALED: SINUS RHYTHM WITH HR 65. CHEST XRAY OBTAINED AND REVEALED: The heart is mildly enlarged but unchanged. The pulmonary vessels are normal. There is overlying EKG lead artifact. No consolidation or effusion is seen. The bones are intact. There is a moderate hiatal hernia which is unchanged. SHE WAS GIVEN A NORMAL SALINE BOLUS IN THE ER AND ADMITTED FOR FURTHER EVALUATION AND TREATMENT OF DEHYDRATION, HYPOKALEMIA, ANEMIA, AND GENERALIZED WEAKNESS. WE WILL TRANSFUSE TWO UNITS OF PACKED RED BLOOD CELLS AND START PATIENT ON NORMAL SALINE AT 125ML/HR AND THE POTASSIUM PROTOCOL. OTHERWISE, WE WILL FOLLOW UP WITH AM LABS AND CONTINUE TO MONITOR PATIENT. - Past Medical History Past Medical History: Anemia, CHF, Hypertension Additional Medical History: Back pain, Previous blood transfusion - Past Surgical History Surgical History: [employer] Surgery, Ortho Surgery Additional Surgical History: Tubal Ligation, Bilateral Club Foot Surgery - Family History Family Medical History: Diabetes Mellitus, Cancer, [place], Hypertension - Social History Does patient currently use any type of tobacco product: No Have you used tobacco products in the last 12 months: No Type of Tobacco Use: None Does any household member use tobacco: No Alcohol Use: None Drug Use: None - Medications Home Medications: No Known Drug Allergies Allergy (Verified 01/18/18 12:50) CONTINUE taking the following medications escitalopram oxalate 10 mg PO DAILY 01/18/18 [History] hydrocodone-acetaminophen 1 tab PO QID PRN 01/18/18 [History] - Review of Systems Constitutional: Weakness Eyes: No Symptoms Reported ENT: No Symptoms Reported Respiratory: Shortness of Breath Cardiovascular: Light Headedness Gastrointestinal: No Symptoms Reported Genitourinary: No Symptoms Reported Musculoskeletal: Back Pain Skin: No Symptoms Reported Neurological: Weakness - Physical Exam Vital Signs: Temperature 98.5 F Pulse Rate [Apical] 79 Pulse Rate 64 Respiratory Rate 33 Blood Pressure [Left Arm] 186/86 Blood Pressure [Right Arm] 149/72 Blood Pressure 93/49 O2 Sat by Pulse Oximetry 97 Oriented: Person, Place Eyes: Normal Ear: Normal Nose: Normal Throat: Normal Respiratory: Diminished Throughout Cardiovascular: Normal. negative: S3, S4, Murmur : Normal Auscultation: Bowel Sounds: Normal Palpation: Normal Tenderness: Normal Skin: Normal Musculoskeletal: Back:Lumbar Psychiatric: Normal, Other (LETHARGIC ) Mood Description: Calm Affect: Flat Speech Pattern: Delayed - Assessment/Plan (1) Anemia Qualifiers: Anemia type: unspecified type Qualified Code(s): D64.9 - Anemia, unspecified Status: Acute Plan: TRANSFUSE 2 UNITS PRBC, CONTINUED TO MONITOR (2) Dehydration Status: Acute Plan: NORMAL SALINE AT 125ML/HR, CONTINUE TO MONITOR (3) Generalized weakness Status: Acute (4) Hypokalemia Status: Acute Plan: POTASSIUM PROTOCOL (5) Hypotension Qualifiers: Hypotension type: idiopathic hypotension Qualified Code(s): I95.0 - Idiopathic hypotension Status: Acute Plan: NORMAL SALINE AT 125ML/HR, CONTINUE TO MONITOR - Allergies Allergies/Adverse Reactions: Allergies Allergy/AdvReac Type Severity Reaction Status Date / Time No Known Drug Allergies Allergy Verified 01/18/18 12:50
[2018-01-19 21:37] LABS: HEMATOCRIT 28.5 % (36.0-47.0); HEMOGLOBIN 9.2 g/dL (12.0-16.0)
[2018-01-19] MEDS ORDERED: RESTORIL CAP 15 MG PO PRN (22:03)
[2018-01-20] MEDS: NORCO 10/325 TAB PO PRN ×3 (00:06→11:43)
[2018-01-20] MEDS: NS 1000 ML 1,000 ML IV SCH ×3 (05:32→13:34)
[2018-01-20 06:46] LABS: BASOPHILS # (AUTO) 0.1 X10^3/uL (0.0-0.1); BASOPHILS % (AUTO) 1.3 % (0.2-1.0); EOSINOPHILS # (AUTO) 0.2 x10^3/uL (0.0-0.2); HEMATOCRIT 30.9 % (36.0-47.0); LYMPHOCYTES # (AUTO) 1.4 X10^3/uL (1.3-2.9); LYMPHOCYTES % (AUTO) 34.8 % (21.0-51.0); MEAN CORPUSCULAR HEMOGLOBIN 27.5 pg (27.0-34.0); MEAN CORPUSCULAR HGB CONC 32.4 g/dL (33.0-35.0); MEAN CORPUSCULAR VOLUME 84.9 fL (80.0-100.0); MEAN PLATELET VOLUME 8.5 fL (7.4-11.0); MONOCYTES # (AUTO) 0.4 x10^3/uL (0.3-0.8); MONOCYTES % (AUTO) 10.4 % (0.0-13.0); NEUTROPHILS % (AUTO) 49.5 % (42.0-75.0); PLATELET COUNT 116 X10^3/uL (150.0-450.0); RED BLOOD COUNT 3.64 X10^6/uL (3.5-5.4); RED CELL DISTRIBUTION WIDTH 17.7 % (11.6-16.5); WHITE BLOOD COUNT 4.1 X10^3/uL (3.6-10.0)
[2018-01-20 07:12] LABS: ALANINE AMINOTRANSFERASE 26 Units/L (12-78); ALBUMIN 3.4 g/dL (3.4-5.0); ALKALINE PHOSPHATASE 63 Units/L (46-116); ASPARTATE AMINO TRANSFERASE 26 Units/L (15-37); BLOOD UREA NITROGEN 8 mg/dL (7-18); CALCIUM 8.7 mg/dL (8.5-10.1); CARBON DIOXIDE 28.8 mmol/L (21-32); CHLORIDE 103 mmol/L (98-107); COR NA(FOR HYPERGLY) 139 mmol/L (136-145); CREATININE 0.81 mg/dL (0.55-1.02); SODIUM 139 mmol/L (136-145); TOTAL PROTEIN 7.5 g/dL (6.4-8.2); eGFR NON BLACK RACES > 60 (>60)
[2018-01-20] MEDS ORDERED: LEXAPRO ONE (08:10)
[2018-01-20] MEDS: PROTONIX INJ 40 MG VIAL IVP SCH (08:12)
[2018-01-20] MEDS: LEXAPRO PO SCH (08:12)
[2018-01-20] MEDS: COZAAR PO SCH (08:12)
[2018-01-20] MEDS: PEPCID 20 MG IV PREMIX* 20 MG/50 ML BAG IV SCH (08:12)
[2018-01-20 12:07] VITALS: BP 188/90
[2018-01-20] MEDS: XANAX PO PRN (14:08)
[2018-01-20] MEDS ORDERED: TOPROL XL PO ONE (14:17)
[2018-01-20] MEDS ORDERED: HYDROCHLOROTHIAZIDE 25 MG TAB ONE (14:27)
[2018-01-20] MEDS ORDERED: MAXZIDE 37.5/25 MG PO SCH (15:00)
[2018-01-21] MEDS ORDERED: TOPROL XL PO ONE (14:15)
--- NOTE | 2018-02-02 22:59 | DR.CARTERD ---
- Discharge Summary for: Discharge Summary for Date of:: 01/20/18 - Admission Date Date of Admission: 01/18/18 - Admission Diagnoses Admission Diagnosis: (1) Anemia (2) Dehydration (3) Generalized weakness (4) Hypokalemia (5) Hypotension - Discharge Date Discharge Date: 01/20/18 - Discharge Diagnoses Discharge Diagnosis: (1) Anemia (2) Dehydration (3) Generalized weakness (4) Hypokalemia (5) Hypotension - Hospital Course Hospital Course: DAY ONE, MS. NINA IS A 57 YEAR OLD PATIENT OF OURS WHO PRESENTED TO THE EMERGENCY ROOM VIA EMS FOR COMPLAINTS OF DROWSINESS AND WEAKNESS. EMS REPORTED THAT ON ARRIVAL TO PATIENTS HOME, PATIENT WAS NOTED TO BE LETHARGIC AND IN AND OUT OF CONSCIOUSNESS WITH SNORING RESPIRATIONS. HER BLOOD PRESSURE WAS NOTED TO BE 54/30. SHE REMAINED LETHARGIC ON ARRIVAL TO THE EMERGENCY DEPARTMENT, BUT EVENTUALLY BECAME MORE ALERT AND ADMITTED TO TAKING A ZANAFLEX ABOUT TWO HOURS PRIOR TO ARRIVAL DUE TO BACK PAIN. ON ARRIVAL, VITALS WERE 97.6-64-17-97%-93/ 49. LABS WERE OBTAINED. ABNORMAL LAB VALUES INCLUDED THE FOLLOWING: RBC 2.53, HGB 6.8, HCT 21.6, PLT COUNT 118, POTASSIUM 3.3, CREATININE 1.12, GLUCOSE 154, CALCIUM 7.7, TOTAL PROTEIN 6.1, ALBUMIN 2.8. CARDIAC ENZYMES WITHIN NORMAL LIMITS. EKG REVEALED: SINUS RHYTHM WITH HR 65. CHEST XRAY OBTAINED AND REVEALED : THE HEART IS MILDLY ENLARGED BUT UNCHANGED; THE PULMONARY VESSELS ARE NORMAL; THERE IS OVERLYING EKG LEAD ARTIFACT; NO CONSOLIDATION OR EFFUSION IS SEEN; THE BONES ARE INTACT; THERE IS A MODERATE HIATAL HERNIA WHICH IS UNCHANGED. SHE WAS GIVEN A NORMAL SALINE BOLUS IN THE ER AND ADMITTED FOR FURTHER EVALUATION AND TREATMENT OF DEHYDRATION, HYPOKALEMIA, ANEMIA, AND GENERALIZED WEAKNESS. WE TRANSFUSED TWO UNITS OF PACKED RED BLOOD CELLS AND STARTED PATIENT ON NORMAL SALINE AT 125ML/HR AND THE POTASSIUM PROTOCOL. HOME MEDICATIONS WERE HELD. ON DAY TWO, PATIENT TOLERATED TRANSFUSION WELL. SHE REPORTED GENERALIZED WEAKNESS AND SHORTNESS OF BREATH. O2 SATURATION WAS 95% ON NASAL CANNULA. WE CONTINUED TO MONITOR PATIENT'S BLOOD PRESSURE. SHE WAS ALERT AND ORIENTED. BLOOD PRESSURE WAS 174/75. WE RESTARTED PATIENT'S HOME MEDICATION OF ESCITALOPRAM AND [place] POTASSIUM. WE CONTINUED TO MONITOR. ON DAY THREE, PATIENT'S BLOOD PRESSURE WAS 188/90. PATIENT REPORTED SHE WAS READY FOR DISCHARGE. WE DISCUSSED BLOOD PRESSURE WITH PATIENT AND THAT IT NEEDED TO BE LOWER BEFORE LEAVING. SHE WAS IN AGREEMENT. HEMOGLOBIN REMAINED STABLE AT 10.0. PATIENT WAS STARTED ON METOPROLOL AND TRIAMTERENE. SHORTLY AFTER ADMINISTRATION, PATIENT BECAME IRATE AND WANTED TO LEAVE WITHOUT SEEING A DECREASE IN BLOOD PRESSURE. RISKS WERE EXPLAINED TO PATIENT, SHE VOICED UNDERSTANDING. PATIENT SIGNED OUT AGAINST MEDICAL ADVICE AND LEFT THE HOSPITAL IN STABLE CONDITION WITH FAMILY. - Discharge Medications Discharge Medications: Home Medication List escitalopram oxalate 10 mg PO DAILY 01/18/18 [History] hydrocodone-acetaminophen 1 tab PO QID PRN 01/18/18 [History] clonazepam [Klonopin] 1 mg PO HS #30 tab 01/20/18 [Rx] triamterene-hydrochlorothiazid 1 cap PO DAILY 01/20/18 [History] Prescriptions: clonazepam [Klonopin] Noe Castro Home medications Losartan Potassium [Losartan Potassium 100 mg] 100 mg PO DAILY 04/15/16 alprazolam 0.5 mg PO DAILY PRN 09/23/17 tizanidine 2 mg PO TID PRN 09/23/17 - Discharge Disposition Discharge Disposition: PATIENT IS TO FOLLOW UP IN OUR OFFICE IN ONE WEEK.
--- NOTE | 2018-02-03 10:42 | DR.DIZZY ---
HPI Time seen Time seen: 16:00 PCP Primary Care Physician: RODNEY Complaint Chief Complaint Doctor Comments: Patient presented to the ED with patient who was lethargic with decreased respiration and snoring respirations. She was hypotensive BP 54/30 upon arrival, upon questioning she stated that she took a zanaflex just prior to their arrival. Chief Complaint:: EMS STATES UPON THEIR ARRIVAL, PT. WAS LETHARGIC AND THEN WAS IN AND OUT OF CONSCIOUSNESS WITH SNORING RESPIRATIONS. PT'S BLOOD PRESSURE MANUALLY WAS 54/30. UPON ARRIVAL TO ER, PT. IS STILL LETHARGIC BUT ANSWERS QUESTIONS APPROPIATELY. PT. STATES SHE TOOK A ZANAFLEX PRIOR TO ARRIVAL BECAUSE HER BACK WAS HURTING AND NOW SHE'S AT THE ER. Source History Provided: Patient and EMS Mode of Arrival Mode of Arrival: EMS Timing Onset of Chief Complaint: 01/18/18 Context Stroke Symptoms: None PMH PMH Past Medical History: Yes Past Medical History: Anemia, CHF and Hypertension Past Surgical History: Yes Surgical History: BEATER BOSS Surgery and Ortho Surgery Family History History of Family Medical Conditions: Yes Family Medical History: Diabetes Mellitus, Cancer, [place] and Hypertension Social History Does patient currently use any type of tobacco product: No Have you used tobacco products in the last 12 months: No Type of Tobacco Use: None Does any household member use tobacco: No Alcohol Use: None Do you use any recreational Drugs:: No Lives With: Family Lives Where: Home infectious screening In the last 2 months have you had wt loss of >10#?: NO Have you had fever, night sweats or hemotysis?: No Have you traveled outside the country in the last 6 months?: No Isolation: Standard ROS Review of Systems Constitutional: No Symptoms Reported and Weakness Eyes: No Symptoms Reported Respiratoy: See HPI Integumentary: No Symptoms Reported Psychiatric: No Symptoms Reported All Other Systems: Reviewed and Negative PE Vital Signs Vitals: Temperature 97.3 F Pulse Rate [Apical] 83 Pulse Rate 64 Respiratory Rate 16 Blood Pressure [Left Arm] 186/86 Blood Pressure [Right Arm] 188/90 Blood Pressure 93/49 O2 Sat by Pulse Oximetry 95 General Limitations: Altered Mental Status and Physical Limitation General Appearance: Lethargic and In Distress; negative Appears Intoxicated Head Head Exam: Normal Inspection; negative Atraumatic Eyes Eye exam: Normal Appearance, PERRL and EOMI; negative Scleral Icterus, Conjunctival Injection, Miosis and Mydrasis Pupils: Regular, Round: Bilateral Sclera/Conjunctival: Normal Inspection: Bilateral Anterior Chamber: Normal Inspection: Bilateral Posterior Chamber: Deferred: Bilateral ENT ENT Exam: Normal Exam, Normal Oropharynx and Mucous Membranes Moist Neck Neck Exam: Normal Inspection Chest Chest Inspection: Normal Inspection Respiratory Respiratory Exam: Prolonged Expiratory Phase and Respiratory Distress; negative Stridor Respiratory Exam: Bilateral: Clear to Auscultation Cardiovascular Cardiovascular Exam: Regular Rate Abdominal Exam Abdominal Exam: Hypoactive Bowel Sounds; negative Distention, Rebound, Trauma and Mass Rectal Rectal Exam: Deferred Extremeties Extremities Exam: Normal Inspection Back Back Exam: Normal Inspection Neurologic Neurological Exam: Alert, CN II-XII Intact, Motor Sensory Deficit and Other ( Depressed respiration upon arrival) Cranial Nerve Exam: EOM Function (II, III, IV, ): Left Abnormal and Facial Sensation (V): Left Abnormal Motor Strength - LUE: 3/5 Motor Strength - RUE: 3/5 Motor Strength - LLE: 3/5 Psychiatric Psychiatric Exam: Normal Affect Skin Skin Exam: Warm, Dry and Normal Color; negative Diaphoresis and Erythema COURSE Treatment Treatment: NS, bolus x2 liters then maintance EKG monitoring, Reevaluation 1st: Improved 2nd: Improved ROR Labs Reviewed Laboratory Results Reviewed?: Yes Result Diagrams: 01/20/18 05:20 01/20/18 05:20 Laboratory: WBC 4.1 X10^3/uL (3.6-10.0) 01/20/18 05:20 RBC 3.64 X10^6/uL (3.5-5.4) 01/20/18 05:20 Hgb 10.0 g/dL (12.0-16.0) L 01/20/18 05:20 Hct 30.9 % (36.0-47.0) L 01/20/18 05:20 MCV 84.9 fL (80.0-100.0) 01/20/18 05:20 MCH 27.5 pg (27.0-34.0) 01/20/18 05:20 MCHC 32.4 g/dL (33.0-35.0) L 01/20/18 05:20 RDW 17.7 % (11.6-16.5) H 01/20/18 05:20 Plt Count 116 X10^3/uL (150.0-450.0) L 01/20/18 05:20 Plt Count Comment Decreased (ADEQUATE) A 01/18/18 14:00 MPV 8.5 fL (7.4-11.0) 01/20/18 05:20 Neut % (Auto) 49.5 % (42.0-75.0) 01/20/18 05:20 Lymph % (Auto) 34.8 % (21.0-51.0) 01/20/18 05:20 [place] % (Auto) 10.4 % (0.0-13.0) 01/20/18 05:20 Eos % (Auto) 4.0 % (0.9-2.9) H 01/20/18 05:20 Baso % (Auto) 1.3 % (0.2-1.0) H 01/20/18 05:20 Neut # (Auto) 2.0 x10^3/uL (2.2-4.8) L 01/20/18 05:20 Lymph # (Auto) 1.4 X10^3/uL (1.3-2.9) 01/20/18 05:20 [place] # (Auto) 0.4 x10^3/uL (0.3-0.8) 01/20/18 05:20 Eos # (Auto) 0.2 x10^3/uL (0.0-0.2) 01/20/18 05:20 Baso # (Auto) 0.1 X10^3/uL (0.0-0.1) 01/20/18 05:20 Absolute Nucleated RBC 0.0 /100WBC 01/20/18 05:20 Plt Morphology Comment Normal (NORMAL) 01/18/18 14:00 RBC Morphology Abnormal (NORMAL) A 01/18/18 14:00 Hypochromasia Slight A 01/18/18 14:00 INR Target Range - 01/18/18 14:00 INR 1.05 (0.8-1.3) 01/18/18 14:00 APTT 24.7 SECONDS (22.9-36.5) 01/18/18 14:00 PTT Comment - 01/18/18 14:00 Sodium 139 mmol/L (136-145) 01/20/18 05:20 Corrected Sodium 139 mmol/L (136-145) 01/20/18 05:20 Potassium 3.6 mmol/L (3.5-5.1) 01/20/18 05:20 Chloride 103 mmol/L (98-107) 01/20/18 05:20 Carbon Dioxide 28.8 mmol/L (21-32) 01/20/18 05:20 BUN 8 mg/dL (7-18) 01/20/18 05:20 Creatinine 0.81 mg/dL (0.55-1.02) 01/20/18 05:20 Est GFR (MDRD) Af Amer > 60 (>60) 01/20/18 05:20 Est GFR (MDRD) Non-Af > 60 (>60) 01/20/18 05:20 Glucose 115 mg/dL (65-99) H 01/20/18 05:20 Calcium 8.7 mg/dL (8.5-10.1) 01/20/18 05:20 Corrected Calcium TNP 01/20/18 05:20 Magnesium 2.5 mg/dL (1.7-2.9) 01/19/18 05:12 Total Bilirubin 0.30 mg/dL (0.2-1.0) 01/20/18 05:20 AST 26 Units/L (15-37) 01/20/18 05:20 ALT 26 Units/L (12-78) 01/20/18 05:20 Alkaline Phosphatase 63 Units/L (46-116) 01/20/18 05:20 Creatine Kinase 43 Units/L (26-192) 01/18/18 14:00 CK-MB (CK-2) 0.6 ng/mL (0-4.0) 01/18/18 14:00 CK/CKMB % Calc 1.4 % (<4) 01/18/18 14:00 Troponin I 0.01 ng/mL (0-1.5) 01/18/18 14:00 Total Protein 7.5 g/dL (6.4-8.2) 01/20/18 05:20 Albumin 3.4 g/dL (3.4-5.0) 01/20/18 05:20 Globulin 4.1 g/dL (2.5-4.5) 01/20/18 05:20 Albumin/Globulin Ratio 0.8 Ratio (1.1-2.1) L 01/20/18 05:20 Specimen Type Catherized urine 01/18/18 13:56 Urine Color Yellow (YELLOW) 01/18/18 13:56 Urine Appearance Clear (CLEAR) 01/18/18 13:56 Urine pH 8.0 (5.0 - 8.0) 01/18/18 13:56 Ur Specific [place] 1.015 (1.000-1.030) 01/18/18 13:56 Urine Protein 2+ (NEGATIVE) 01/18/18 13:56 Urine Glucose (UA) Negative (NEGATIVE) 01/18/18 13:56 Urine Ketones Negative (NEGATIVE) 01/18/18 13:56 Urine Occult Blood 2+ (NEGATIVE) 01/18/18 13:56 Urine Nitrite Negative (NEGATIVE) 01/18/18 13:56 Urine Bilirubin Negative (NEGATIVE) 01/18/18 13:56 Urine Urobilinogen Normal (NORMAL) 01/18/18 13:56 Ur Leukocyte Esterase Negative (NEGATIVE) 01/18/18 13:56 Urine RBC 3-5 /HPF (NONE SEEN) 01/18/18 13:56 Urine WBC None seen /HPF (NONE SEEN) 01/18/18 13:56 Ur Squamous Epith Cells Rare /HPF (NEGATIVE) 01/18/18 13:56 Urine Bacteria Negative /HPF (NEGATIVE) 01/18/18 13:56 Ur Culture Indicated? No/not indicated 01/18/18 13:56 Blood Type O POSITIVE 01/18/18 14:36 Antibody Screen Negative 01/18/18 14:36 Crossmatch See Detail 01/18/18 14:36 XRAY XRAY Interpreted by: Radiologist XRAY Findings: Chest: ...stable with no acute abnormality seen Diagnosis Discharge Problem: Anemia, Hypotension, Acute hypokalemia Instructions Instructions: Hypokalemia Weakness, [id number] Dehydration, Adult, [id number] Forms: Patient Portal ADDITIONAL NOTES Additional Notes Additional Notes: Patient discussed with her primary care physician and was admitted for further evaluation.
== END 2018-01-20 15:25 | disposition left against medical advice (07) ==
LOC: ER 12:47 → INTOOBSV 16:18 → ICU 16:18
PROVIDERS: ADMIT Obstetrics & Gynecology Obstetrics; ATTEND Internal Medicine
DX: R94.31 Abnormal electrocardiogram [ECG] [EKG]; R73.09 Other abnormal glucose; I10 Essential (primary) hypertension; E87.6 Hypokalemia; E86.0 Dehydration; R53.1 Weakness; Z79.899 Other long term (current) drug therapy; R41.82 Altered mental status, unspecified; D64.89 Other specified anemias; I95.0 Idiopathic hypotension
CPT/HCPCS: 36415; 36430; 51702; 71010; 71045; 80053; 81001; 82550; 82553; 83735; 84484; 85014; 85018; 85025; 85610; 85730; 86850; 86900; 86901; 86922; 93005; 96365; 96367; 96375; 97161; 99284; A4222; C9113; P9016; S0028; G0378; J1200; J3475; J3480; J3490; J7030; J7040; J8499

== ENCOUNTER 2020-10-24 09:41 | Inpatient (IN) ==
[2020-10-24 10:03] VITALS: BMI 32.3
--- NOTE | 2020-10-24 10:05 | DR.AMS ---
HPI Time Seen Time Seen by Provider: 10/24/20 09:52 HPI Comment HPI Comment: A 60 y/o female presenting via EMS for evaluation of Altered Mental Status. EMS states a visiting home health Nurse had called. Her room mate states she has been confused and not talking right since past Thursday. The pt. knows. who she is and where she's at. It's unclear if she took some medications belonging to others in the house as the EMS staff states do give her medications. The pt. herself hasn't been to health provider(s) in a few years. There is no further hx. obtainable from her at this time. 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 Surgery Family History Family Medical History: Diabetes Mellitus, Cancer, [place] and Hypertension Social History Do you use any recreational Drugs:: No ROS Review of Systems Constitutional: No Symptoms Reported Eyes: No Symptoms Reported ENTM: No Symptoms Reported Respiratoy: No Symptoms Reported Cardiovascular: No Symptoms Reported Gastrointestinal/Abdominal: No Symptoms Reported Genitourinary: No Symptoms Reported Neurological: Other (confusion) Musculoskeletal: No Symptoms Reported Integumentary: No Symptoms Reported Hematologic/Lymphatic: No Symptoms Reported Endocrine: No Symptoms Reported Psychiatric: No Symptoms Reported PE Vitals Vital Signs: Temp Pulse Resp BP BP BP Pulse Ox 10/24/20 11:00 102 H 17 113/53 100 10/24/20 10:00 105 H 23 114/56 100 10/24/20 09:43 98.1 F 108 H 20 133/78 98 08/03/18 21:24 176/74 04/20/18 21:45 152/80 General Limitations: Altered Mental Status General Appearance: Alert and In No Apparent Distress Head Head Exam: Normal Inspection, Atraumatic and Normocephalic Head Exam Physical: negative Laceration, Abrasion, Contusion, Hematoma, Raccoon Eyes, Maldonado's Sign, Tenderness of Temporal Artery, CSF Rhinorrhea and CSF Otorrhea Eyes Eye exam: PERRL, EOMI and Other (pale conjuctivae) Pupils: Regular, Round: Bilateral and Reactive: Bilateral ENT ENT Exam: Normal Exam, Normal Oropharynx, Normal External Ear Exam and Mucous Membranes Moist Neck Neck Exam: Normal Inspection, Full ROM and Trachea Midline Chest Chest Inspection: Normal Inspection and Symmetric Chest Wall Rise Respiratory Respiratory Exam: Normal Lung Sounds Bilat Cardiovascular Cardiovascular Exam: Regular Rate, Normal Rhythm, Normal Heart Sounds, +S1 and +S2 Abdominal Exam Abdominal Exam: Normal Bowel Sounds, Soft and Other (mild distention); negative Normal Inspection, Distention, Tenderness, Guarding, Rebound, Rigidity, Dimnished Bowel Sounds, Hyperactive Bowel Sounds, Hypoactive Bowel Sounds, Organomegaly, Trauma, Incision, Ascites, Mass, Bruit, Pulsatile Mass and Hernia Extremities Extremities Exam: Full ROM and Edema (2+ in both legs) Back Back Exam: Normal Inspection and Full ROM Neurological Neurological Exam: Alert and Other (oriented to self and place. 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 Education/Counseling Education/Counseling: Patient, Education and Counseling Educated On: Treatment, Diagnosis, Prognosis and Needs for Follow Up ROR Labs Reviewed Laboratory Results Reviewed?: Yes Result Diagrams: 10/24/20 10:00 10/24/20 10:00 Laboratory: WBC 7.4 X10^3/uL (3.6-10.0) 10/24/20 10:00 RBC 1.17 X10^6/uL (3.5-5.4) L 10/24/20 10:00 Hgb 3.5 g/dL (12.0-16.0) L* 10/24/20 10:00 Hct 11.6 % (36.0-47.0) L* 10/24/20 10:00 MCV 98.4 fL (80.0-100.0) 10/24/20 10:00 MCH 29.6 pg (27.0-34.0) 10/24/20 10:00 MCHC 30.1 g/dL (33.0-35.0) L 10/24/20 10:00 RDW 28.4 % (11.6-16.5) H 10/24/20 10:00 Plt Count 142 X10^3/uL (150.0-450.0) L 10/24/20 10:00 Plt Count Comment Decreased (ADEQUATE) A 10/24/20 10:00 MPV 9.0 fL (7.4-11.0) 10/24/20 10:00 Neut % (Auto) 75.1 % (42.0-75.0) H 10/24/20 10:00 Lymph % (Auto) 8.9 % (21.0-51.0) L 10/24/20 10:00 Bond % (Auto) 15.4 % (0.0-13.0) H 10/24/20 10:00 Eos % (Auto) 0.3 % (0.9-2.9) L 10/24/20 10:00 Baso % (Auto) 0.3 % (0.2-1.0) 10/24/20 10:00 Neut # (Auto) 5.5 x10^3/uL (2.2-4.8) H 10/24/20 10:00 Lymph # (Auto) 0.7 X10^3/uL (1.3-2.9) L 10/24/20 10:00 Bond # (Auto) 1.1 x10^3/uL (0.3-0.8) H 10/24/20 10:00 Eos # (Auto) 0.0 x10^3/uL (0.0-0.2) 10/24/20 10:00 Baso # (Auto) 0.0 X10^3/uL (0.0-0.1) 10/24/20 10:00 Absolute Nucleated RBC 0.9 /100WBC 10/24/20 10:00 Plt Morphology Comment Normal (NORMAL) 10/24/20 10:00 RBC Morphology Abnormal (NORMAL) A 10/24/20 10:00 Dimorphic RBCs 2+ 10/24/20 10:00 Hypochromasia 2+ A 10/24/20 10:00 Poikilocytosis Slight A 10/24/20 10:00 Anisocytosis 3+ A 10/24/20 10:00 Microcytosis 1+ A 10/24/20 10:00 Sodium 142 mmol/L (136-145) 10/24/20 10:00 Corrected Sodium 143 mmol/L (136-145) 10/24/20 10:00 Potassium 3.3 mmol/L (3.5-5.1) L 10/24/20 10:00 Chloride 102 mmol/L (98-107) 10/24/20 10:00 Carbon Dioxide 22.7 mmol/L (21-32) 10/24/20 10:00 BUN 10 mg/dL (7-18) 10/24/20 10:00 Creatinine 1.71 mg/dL (0.55-1.02) H 10/24/20 10:00 Est GFR (MDRD) Af Amer 39 (>60) L 10/24/20 10:00 Est GFR (MDRD) Non-Af 32 (>60) L 10/24/20 10:00 Glucose 124 mg/dL (65-99) H 10/24/20 10:00 Hemoglobin A1c Cancelled 10/24/20 10:00 Calcium 8.4 mg/dL (8.5-10.1) L 10/24/20 10:00 Corrected Calcium 9.8 mg/dL (8.5-10.1) 10/24/20 10:00 Total Bilirubin 5.80 mg/dL (0.2-1.0) H 10/24/20 10:00 AST 104 Units/L (15-37) H 10/24/20 10:00 ALT 52 Units/L (12-78) 10/24/20 10:00 Alkaline Phosphatase 99 Units/L (46-116) 10/24/20 10:00 Ammonia 82 umol/L (11-32) H 10/24/20 10:00 Creatine Kinase 160 Units/L (26-192) 10/24/20 10:00 CK-MB (CK-2) 4.0 ng/mL (0-4.0) 10/24/20 10:00 CK/CKMB % Calc 2.5 % (<4) 10/24/20 10:00 Troponin I < 0.02 ng/mL (0-1.5) 10/24/20 10:00 B-Natriuretic Peptide 358 pg/mL (0-79) H 10/24/20 10:00 Total Protein 7.1 g/dL (6.4-8.2) 10/24/20 10:00 Albumin 2.2 g/dL (3.4-5.0) L 10/24/20 10:00 Globulin 4.9 g/dL (2.5-4.5) H 10/24/20 10:00 Albumin/Globulin Ratio 0.4 Ratio (1.1-2.1) L 10/24/20 10:00 Amylase 25 Units/L (25-115) 10/24/20 10:00 Lipase 120 Units/L (73-393) 10/24/20 10:00 Specimen Type Catherized urine 10/24/20 10:10 Urine Color Dark yellow (YELLOW) 10/24/20 10:10 Urine Appearance Hazy (CLEAR) 10/24/20 10:10 Urine pH 7.0 (5.0 - 8.0) 10/24/20 10:10 Ur Specific [place] 1.010 (1.000-1.030) 10/24/20 10:10 Urine Protein 2+ (NEGATIVE) 10/24/20 10:10 Urine Glucose (UA) Negative (NEGATIVE) 10/24/20 10:10 Urine Ketones 1+ (NEGATIVE) 10/24/20 10:10 Urine Occult Blood 1+ (NEGATIVE) 10/24/20 10:10 Urine Nitrite Negative (NEGATIVE) 10/24/20 10:10 Urine Bilirubin 2+ (NEGATIVE) 10/24/20 10:10 Urine Urobilinogen 3+ (NORMAL) 10/24/20 10:10 Ur Leukocyte Esterase 3+ (NEGATIVE) 10/24/20 10:10 Urine RBC 3-5 /HPF (0-3) A 10/24/20 10:10 Urine WBC 20-30 /HPF (0-5) A 10/24/20 10:10 Ur Squamous Epith Cells Few /HPF (NEGATIVE) 10/24/20 10:10 Urine Bacteria 1+ /HPF (NEGATIVE) 10/24/20 10:10 Hyaline Casts Few /LPF (NEGATIVE) 10/24/20 10:10 Ur Culture Indicated? Yes/culture set up 10/24/20 10:10 Urine Opiates Screen Negative (NEG=<300) 10/24/20 10:10 Urine Methadone Screen Negative (NEG=<300) 10/24/20 10:10 Ur Barbiturates Screen Negative (NEG=<200) 10/24/20 10:10 Ur Phencyclidine Scrn Negative (NEG=<25) 10/24/20 10:10 Ur Amphetamines Screen Negative (NEG=<1000) 10/24/20 10:10 U Benzodiazepines Scrn Negative (NEG=<200) 10/24/20 10:10 Urine Cocaine Screen Negative (NEG=<300) 10/24/20 10:10 U Marijuana (THC) Screen Negative (NEG=<50) 10/24/20 10:10 Blood Type O POSITIVE 10/24/20 10:34 Antibody Screen Negative 10/24/20 10:34 Crossmatch See Detail 10/24/20 10:34 XRAY XRAY Interpreted by: Self X-ray Results: CXR: Cardiomegaly with mild vascular congestion. No infiltrates noted. Radiologist report is pending. Opioid Opioid Risk Tool Total: 0 Total Score Risk Category: Low Risk Copyright: [facility] predicting aberrant behaviors Diagnosis Discharge Problem: Hypochromic microcytic anemia, Hypokalemia, Abnormal LFTs (liver function tests), Thrombocytopenia, Increased ammonia level UTI (urinary tract infection) Qualifiers: Urinary tract infection type: acute cystitis Hematuria presence: with hematuria Qualified Code(s): N30.01 - Acute cystitis with hematuria Altered mental status Qualifiers: Altered mental status type: disorientation Qualified Code(s): R41.0 - D isorientation, unspecified CHF (congestive heart failure) Qualifiers: Heart failure type: unspecified Heart failure chronicity: chronic Qualified Code(s): I50.9 - Heart failure, unspecified Instructions Forms: Precautions for COVID19 Patient Portal Social Distancing ADDITIONAL NOTES Additional Notes Additional Notes: HISTORY 60-year-old female with confusion STUDY BRAIN W/O CON COMPARISON None TECHNIQUE Axial imaging was performed from the vertex to the base of skull without intravenous contrast being administered. Sagittal and coronal reformations were generated. Automated exposure control techniques were used with this exam. FINDINGS Mild age related atrophic changes are present. However there is no evidence of intracranial hemorrhage or extracerebral fluid collections. Ventricles are symmetric in size and position with no mass effect seen. Patchy low density is present in a periventricular white matter distribution, consistent with chronic small vessel ischemia. On the bone windows, no acute bony abnormality is seen. Visualized aspect of the paranasal sinuses and mastoid air cells are clear. IMPRESSION 1. No acute intracranial abnormality is seen on this exam. 2. Mild age related atrophic changes and scattered areas of chronic small vessel ischemia are present in a periventricular white matter distribution. Electronically signed by: ADELINA PERLA (Oct 24, 2020 10:42:08)
[2020-10-24 10:18] LABS: BASOPHILS % (AUTO) 0.3 % (0.2-1.0); EOSINOPHILS % (AUTO) 0.3 % (0.9-2.9); LYMPHOCYTES # (AUTO) 0.7 X10^3/uL (1.3-2.9); LYMPHOCYTES % (AUTO) 8.9 % (21.0-51.0); MEAN CORPUSCULAR HEMOGLOBIN 29.6 pg (27.0-34.0); MEAN CORPUSCULAR HGB CONC 30.1 g/dL (33.0-35.0); MEAN CORPUSCULAR VOLUME 98.4 fL (80.0-100.0); MONOCYTES # (AUTO) 1.1 x10^3/uL (0.3-0.8); MONOCYTES % (AUTO) 15.4 % (0.0-13.0); NEUTROPHILS # (AUTO) 5.5 x10^3/uL (2.2-4.8); NEUTROPHILS % (AUTO) 75.1 % (42.0-75.0); PLATELET COUNT 142 X10^3/uL (150.0-450.0); RED BLOOD COUNT 1.17 X10^6/uL (3.5-5.4); RED CELL DISTRIBUTION WIDTH 28.4 % (11.6-16.5); WHITE BLOOD COUNT 7.4 X10^3/uL (3.6-10.0)
[2020-10-24 10:22] LABS: BILIRUBIN,URINE 2+ (NEGATIVE); BLOOD/HEMOGLOBIN,URINE 1+ (NEGATIVE); GLUCOSE, URINE NEGATIVE (NEGATIVE); KETONES,URINE 1+ (NEGATIVE); LEUKOCYTE ESTERASE ,URINE 3+ (NEGATIVE); NITRITES,URINE NEGATIVE (NEGATIVE); PROTEIN,URINE 2+ (NEGATIVE); UROBILINOGEN,URINE 3+ (NORMAL)
[2020-10-24 10:36] LABS: BLOOD UREA NITROGEN 10 mg/dL (7-18); CALCIUM 8.4 mg/dL (8.5-10.1); CARBON DIOXIDE 22.7 mmol/L (21-32); CHLORIDE 102 mmol/L (98-107); COR NA(FOR HYPERGLY) 143 mmol/L (136-145); CREATININE 1.71 mg/dL (0.55-1.02); SODIUM 142 mmol/L (136-145); TROPONIN I < 0.02 ng/mL (0-1.5); eGFR NON BLACK RACES 32 (>60)
--- NOTE | 2020-10-24 10:44 | CT ---
[id number] female with confusionSTUDYBRAIN W/O CONCOMPARISONNoneTECHNIQUEAxial imaging was performed from the vertex to the base of skull without intravenous contrast being administered. Sagittal and coronal reformations were generated. Automated exposure control techniques were used with this exam.FINDINGSMild age related atrophic changes are present. However there is no evidence of intracranial hemorrhage or extracerebral fluid collections. Ventricles are symmetric in size and position with no mass effect seen. Patchy low density is present in a periventricular white matter distribution, consistent with chronic small vessel ischemia. On the bone windows, no acute bony abnormality is seen. Visualized aspect of the paranasal sinuses and mastoid air cells are clear.IMPRESSION1. No acute intracranial abnormality is seen on this exam.2. Mild age related atrophic changes and scattered areas of chronic small vessel ischemia are present in a periventricular white matter distribution.Electronically signed by: ADELINA PERLA (Oct 24, 2020 10:42:08)
[2020-10-24 10:45] LABS: AMMONIA 82 umol/L (11-32)
[2020-10-24 10:51] LABS: APPEARANCE,URINE HAZY (CLEAR); BACTERIA,URINE 1+ /HPF (NEGATIVE); COLOR,URINE DARK YELLOW (YELLOW); SQUAMOUS EPITHELIAL CELL,UR FEW /HPF (NEGATIVE)
[2020-10-24 10:52] LABS: HYALINE CASTS, URINE FEW /LPF (NEGATIVE)
[2020-10-24 10:59] LABS: ALANINE AMINOTRANSFERASE 52 Units/L (12-78); ALBUMIN 2.2 g/dL (3.4-5.0); ALKALINE PHOSPHATASE 99 Units/L (46-116); AMYLASE 25 Units/L (25-115); ASPARTATE AMINO TRANSFERASE 104 Units/L (15-37); CKMB % 2.5 % (<4); COR CA(FOR HYPOALB) 9.8 mg/dL (8.5-10.1); CREATINE KINASE 160 Units/L (26-192); LIPASE 120 Units/L (73-393); TOTAL PROTEIN 7.1 g/dL (6.4-8.2)
[2020-10-24 11:01] LABS: ANISOCYTOSIS 3+; HEMATOCRIT 11.6 % (36.0-47.0); HEMOGLOBIN 3.5 g/dL (12.0-16.0); HYPOCHROMASIA 2+; MICROCYTOSIS 1+; PLATELET MORPHOLOGY COMMENT NORMAL (NORMAL)
[2020-10-24 11:02] LABS: POIKILOCYTOSIS SLIGHT
[2020-10-24] MEDS ORDERED: ROCEPHIN VIAL 1 GRAM 1 G in NS 100 ML IV + SPIKE MINIBAG* 100 ML IV ONE (11:51)
[2020-10-24] MEDS ORDERED: KLOR-CON PO ONE (11:52)
[2020-10-24] MEDS ORDERED: NS 500 ML IV 500 ML IV ONE ×2 (11:56→12:07)
[2020-10-24] MEDS ORDERED: K-DUR TAB 20 MEQ PO ONE ×2 (11:56→12:07)
[2020-10-24] MEDS ORDERED: ROCEPHIN 1 GRAM IV PREMIX 1 G/50 ML IV.SOLN. IV ONE (11:57)
[2020-10-24] MEDS: NS 500 ML IV 500 ML IV ONE (12:08)
[2020-10-24] MEDS ORDERED: BENADRYL INJ 50 MG VIAL ONE (12:23)
[2020-10-24] MEDS ORDERED: TYLENOL 325 MG TAB PO ONE (12:23)
[2020-10-24] MEDS ORDERED: NS 1000 ML 1,000 ML ONE (12:24)
--- NOTE | 2020-10-24 12:40 | RAD ---
HISTORYEDEMASTUDYCHEST, 1 VIEWCOMPARISONNoneFINDINGSThe cardiomediastinal silhouette is widened. Probable hiatal hernia. No acute airspace disease. Possible small left pleural effusion. The bony thorax appears intact.IMPRESSIONCardiomegaly with possible small left pleural effusion. No acute airspace disease.Electronically signed by: SHAMAR MCKEON (Oct 24, 2020 12:38:52)
[2020-10-24] MEDS: BENADRYL INJ 50 MG VIAL IVP PRN (12:45)
[2020-10-24] MEDS: TYLENOL 325 MG TAB PO PRN (12:56)
[2020-10-24 13:22] LABS: IRON 10 ug/dL (50-175); TOTAL IRON BINDING CAPACITY 254 ug/dL (250-450)
--- NOTE | 2020-10-24 13:56 | US ---
HISTORYELEVATED LFTS and BILISSTUDYRight upper quadrant ultrasoundCOMPARISONNoneTECHNIQUEMultiple zafar scale and color flow Doppler images of the right upper quadrant of the abdomen were obtained with image documentation.FINDINGSLiver is echogenic likely due to fatty infiltration. It is normal in size. Hepatopetal portal venous flow is seen on Doppler ultra sound.Sludge is seen in the gallbladder. Gallbladder wall is top normal limits in thickness. No peric holecystic fluid is seen. No biliary ductal dilation.Visualized portions of the pancreas appear césar l.No right renal abnormality. Right kidney measures 11.2 cm in length.Visualized portions of the IVC appear normal.IMPRESSIONProbable fatty infiltration of the liver.Sludge is seen in the gallbladder wi thout suggestion of cholecystitis.Electronically signed by: Costa Flores (Oct 24, 2020 13:53:51)
[2020-10-24] MEDS ORDERED: ROCEPHIN VIAL 1 GRAM 1 G in NS 100 ML IV + SPIKE MINIBAG* 100 ML IV SCH (21:00)
[2020-10-25] MEDS ORDERED: ZOFRAN INJ 4 MG VIAL IVP PRN (00:57)
[2020-10-25] MEDS: BENADRYL INJ 50 MG VIAL IVP PRN (01:30)
[2020-10-25] MEDS: TYLENOL 325 MG TAB PO PRN (01:30)
[2020-10-25] MEDS: NS 500 ML IV 500 ML IV ONE (02:25)
[2020-10-25 05:13] LABS: BASOPHILS % (AUTO) 0.6 % (0.2-1.0); EOSINOPHILS % (AUTO) 0.6 % (0.9-2.9); HEMATOCRIT 24.6 % (36.0-47.0); HEMOGLOBIN 8.1 g/dL (12.0-16.0); LYMPHOCYTES # (AUTO) 0.5 X10^3/uL (1.3-2.9); LYMPHOCYTES % (AUTO) 7.3 % (21.0-51.0); MEAN CORPUSCULAR HEMOGLOBIN 29.3 pg (27.0-34.0); MEAN CORPUSCULAR HGB CONC 33.1 g/dL (33.0-35.0); MEAN CORPUSCULAR VOLUME 88.6 fL (80.0-100.0); MEAN PLATELET VOLUME 8.9 fL (7.4-11.0); MONOCYTES # (AUTO) 0.9 x10^3/uL (0.3-0.8); MONOCYTES % (AUTO) 12.3 % (0.0-13.0); NEUTROPHILS # (AUTO) 5.6 x10^3/uL (2.2-4.8); NEUTROPHILS % (AUTO) 79.2 % (42.0-75.0); PLATELET COUNT 136 X10^3/uL (150.0-450.0); RED BLOOD COUNT 2.78 X10^6/uL (3.5-5.4); RED CELL DISTRIBUTION WIDTH 19.2 % (11.6-16.5); WHITE BLOOD COUNT 7.1 X10^3/uL (3.6-10.0)
[2020-10-25 05:33] LABS: ALANINE AMINOTRANSFERASE 39 Units/L (12-78); ALBUMIN 1.8 g/dL (3.4-5.0); ALKALINE PHOSPHATASE 87 Units/L (46-116); ASPARTATE AMINO TRANSFERASE 73 Units/L (15-37); BLOOD UREA NITROGEN 9 mg/dL (7-18); CALCIUM 8.1 mg/dL (8.5-10.1); CARBON DIOXIDE 26.3 mmol/L (21-32); CHLORIDE 106 mmol/L (98-107); COR CA(FOR HYPOALB) 9.9 mg/dL (8.5-10.1); CREATININE 1.29 mg/dL (0.55-1.02); SODIUM 145 mmol/L (136-145); TOTAL PROTEIN 5.8 g/dL (6.4-8.2); eGFR NON BLACK RACES 45 (>60)
[2020-10-25] MEDS ORDERED: MICRO K EXTEN CAP 10 MEQ PO PRN (05:35)
[2020-10-25] MEDS ORDERED: POTASSIUM CHL 60 MEQ/NS 0.45% 500 ML IV PRN (05:35)
[2020-10-25] MEDS ORDERED: POTASSIUM CHL 40 MEQ/NS 0.45% 500 ML IV PRN (05:35)
[2020-10-25] MEDS ORDERED: POTASSIUM CHLORIDE LIQ 20 MEQ UDC PO PRN (05:35)
[2020-10-25] MEDS ORDERED: K-RIDER 10 MEQ/NS 100 ML 10 MEQ/100 ML BAG IV PRN (05:35)
[2020-10-25] MEDS: K-DUR TAB 20 MEQ PO PRN (06:17)
[2020-10-25] MEDS: MAGNESIUM SULFATE 1 GRAM/100 mL PREMIX 1 GM/100 ML BAG IV PRN ×2 (06:18→07:45)
[2020-10-25] MEDS: KLOR-CON PO PRN (06:31)
[2020-10-25] MEDS: [UNRECOGNIZED DRUG - OTHER] IV SCH ×15 (09:52→21:21)
[2020-10-25] MEDS: NS IV SCH ×15 (09:52→21:21)
[2020-10-25] MEDS: MVI IV SCH ×15 (09:52→21:21)
[2020-10-25] MEDS: THIAMINE HCL IV SCH ×15 (09:52→21:21)
[2020-10-25] MEDS: PROTONIX INJ 40 MG VIAL IVP SCH ×2 (10:40→20:53)
[2020-10-25] MEDS: PEPCID 20 MG IV PREMIX* 20 MG/50 ML BAG IV SCH (10:40)
[2020-10-25] MEDS: ALBUMIN HUMAN 25%- 100 ML 100 ML IV SCH (10:40)
[2020-10-25 10:54] LABS: HEMATOCRIT 24.5 % (36.0-47.0); HEMOGLOBIN 8.2 g/dL (12.0-16.0)
[2020-10-25] MEDS: ROCEPHIN VIAL 1 GRAM 1 G in NS 100 ML IV + SPIKE MINIBAG* 100 ML IV SCH (11:45)
--- NOTE | 2020-10-25 11:55 | DR.H&P ---
H&P - History & Physical for Day of: H&P Date: 10/24/20 - Chief Complaint Chief Complaint: AMS, CONFUSION, WEAKNESS, RUQ ABDOMINAL PAIN - History of Present Illness History of Present Illness: IS A 60 YEAR OLD WHITE FEMALE WHO PRESENTED TO THE ER VIA EMS WITH FAMILY REPORTING THAT PATIENT HAS HAD DECREASED ALERTNESS, CONFUSION, AND GENERALIZED WEAKNESS. FAMILY MEMBERS REPORT THAT HER SYMPTOMS STARTED ON THURSDAY. SHE DOES NOT CURRENTLY HAVE A PRIMARY CARE PHYSICIAN. HER PMH INCLUDES ANEMIA, CHF, HEPATITIS C, AND HTN. PATIENTIS REPORTEDLY A DAILY ALCOHOL DRINKER. ON ARRIVAL TO THE ER, PATIENT IS ALERT. SHE IS ORIENTED TO PERSON, PLACE, AND SITUATION. SKIN AND SCLERA ARE JAUNDICED. SHE HAS 3+ PITTING EDEMA TO ALL EXTREMITIES WELL SWELLING OF THE ABDOMEN. SHE HAS MULTIPLE STAGE TWO PRESSURE ULCERS TO THE PERINEAL AND BUTTOCK AREA. SHE DOES ADMIT TO RUQ ABDOMINAL PAIN.ON ARRIVAL, VITALS WERE 98.1-108-20-98%-133/78. LABS WERE OBTAINED. ABNORMAL LAB VALUES INCLUDE THE FOLLOWING: RBC 1.17, HGB 3.5, HCT 11.6, PLT COUNT 142, POTASSIUM 3.3, CREATININE 1.71, GLUCOSE 124, CALCIUM 8.4, TOTAL BILI 5.80, AST 104, AMMONIA 82, BNP 358, ALBUMIN 2.2, GLOBULIN 4.9, BITAMIN B12 >2000, FOLATE 6.7, IRON 10. A URINALYSIS WAS OBTAINED AND REVEALED: WBC 20-30, RBC 3-5, LEUKOCYTES 3+, BILIRUBIN 2+, BACTERIA 1+, OCCULT BLOOD 1+, PROTEIN 2+. A URINE CULTURE WAS SET UP. COVID-[address] WAS OBTAINED AND REVEALED: 1. No acute intracranial abnormality is seen on this exam. 2. Mild age related atrophic changes and scattered areas of chronic small vessel ischemia are present in a periventricular white matter distribution. A CHEST XRAY WAS OBTAINED AND REVEALED: Cardiomegaly with possible small left pleural effusion. No acute airspace disease. A GALLBLADDER ULTRASOUND WAS OBTAINED AND REVEALED: Probable fatty infiltration of the liver. Sludge is seen in the gallbladder without suggestion of cholecystitis. IN THE ER, SHE WAS GIVEN ROCEPHIN 1G IV, KDUR 20MEQ PO X 1 DOSE. SHE WAS ADMITTED TO THE HOSPITAL FOR FURTHER EVALUATION AND TREATMENT OF HYPOCHROIC, MICROCYTIC ANEMIA, AMS, UTI, THROMBOCYTOPENIA. SHE WAS STARTED ON NORMAL SALINE AT KVO AND ROCEPHIN 1G IV DAILY. WE WILL TYPE AND SCREEN, CROSSMATCH, AND TRANSFUSE 4 UNITS OF PRBC. WE WILL PREMEDICATE WITH TYLENOL AND BENADRYL PRIOR TO TRANSFUSION. OTHERWISE, WE PLAN TO FOLLOW UP WITH AM LABS AND CONTINUE TO MONITOR. WE WILL MONITOR H&H EVERY 6 HOURS. TIME SPENT ON CLINICAL ASSESSMENT, REVIEWING LABS AND IMAGING, DECISION MAKING, AND DOCUMENTATION GREATER THAN 75 MINUTES. 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 Additional Surgical History: Tubal Ligation, Bilateral Club Foot Surgery - Family History Family Medical History: Diabetes Mellitus, Cancer, [place], Hypertension - Social History Does patient currently use any type of tobacco product: No Have you used tobacco products in the last 12 months: No Type of Tobacco Use: None Does any household member use tobacco: No Alcohol Use: Heavy Drug Use: None - Medications Home Medications: No Known Drug Allergies Allergy (Verified 08/03/18 17:37) CONTINUE taking the following medications NK 10/24/20 [History] - Review of Systems Constitutional: Weakness Eyes: No Symptoms Reported ENT: No Symptoms Reported Respiratory: Shortness of Breath Cardiovascular: Edema Gastrointestinal: Abdominal Pain, Melena Genitourinary: No Symptoms Reported Musculoskeletal: No Symptoms Reported Skin: No Symptoms Reported Neurological: Weakness, Confusion - Physical Exam Vital Signs: Temperature 98.2 F Pulse Rate 81 Respiratory Rate 17 Blood Pressure [Left Arm] 152/80 Blood Pressure [Right Arm] 176/74 Blood Pressure 113/55 O2 Sat by Pulse Oximetry 95 Oriented: Person, Place Eyes: Normal Ear: Normal Nose: Normal Throat: Normal Respiratory: Diminished Throughout Cardiovascular: Normal : Normal Auscultation: Bowel Sounds: Normal Palpation: Normal Tenderness: Normal Skin: Wound (MULTIPLE STAGE II PRESSURE ULCERS TO THE PERINEUM AND SACRUM ) Musculoskeletal: Normal Psychiatric: Normal Mood Description: Calm Affect: Normal Speech Pattern: Unclear - Assessment/Plan (1) Hypochromic microcytic anemia Status: Acute Plan: ADMIT, TRANSFUSE 4 UNITS PRBC, NORMAL SALINE AT KVO AND ROCEPHIN 1G IV DAILY (2) UTI (urinary tract infection) Qualifiers: Urinary tract infection type: acute cystitis Hematuria presence: with ken turia Qualified Code(s): N30.01 - Acute cystitis with hematuria Status: Acute (3) Thrombocytopenia Status: Acute (4) Acute hypokalemia Status: Acute (5) Abnormal LFTs (liver function tests) Status: Acute - Allergies Allergies/Adverse Reactions: Allergies Allergy/AdvReac Type Severity Reaction Status Date / Time No Known Drug Allergies Allergy Verified 08/03/18 17:37
[2020-10-25] MEDS ORDERED: KETALAR ONE (12:00)
[2020-10-25] MEDS ORDERED: DILAUDID INJ IVP ONE (12:46)
[2020-10-25] MEDS ORDERED: DIPRIVAN VIAL 20 ML ONE (14:06)
[2020-10-25] MEDS: XIFAXAN PO SCH ×2 (15:51→20:53)
[2020-10-25] MEDS: CHRONULAC PO SCH ×2 (15:51→21:21)
[2020-10-25 17:51] LABS: HEMATOCRIT 25.2 % (36.0-47.0); HEMOGLOBIN 8.5 g/dL (12.0-16.0)
[2020-10-25] MEDS: MORPHINE SULFATE INJ 2 MG INJ IVP PRN (19:30)
[2020-10-25 23:38] LABS: HEMATOCRIT 24.3 % (36.0-47.0)
[2020-10-26] MEDS: MORPHINE SULFATE INJ 2 MG INJ IVP PRN ×6 (00:34→23:45)
[2020-10-26 05:08] LABS: BASOPHILS # (AUTO) 0.1 X10^3/uL (0.0-0.1); BASOPHILS % (AUTO) 0.7 % (0.2-1.0); EOSINOPHILS # (AUTO) 0.1 x10^3/uL (0.0-0.2); EOSINOPHILS % (AUTO) 1.2 % (0.9-2.9); HEMATOCRIT 24.9 % (36.0-47.0); HEMOGLOBIN 8.4 g/dL (12.0-16.0); LYMPHOCYTES % (AUTO) 12.2 % (21.0-51.0); MEAN CORPUSCULAR HEMOGLOBIN 30.4 pg (27.0-34.0); MEAN CORPUSCULAR HGB CONC 33.8 g/dL (33.0-35.0); MEAN CORPUSCULAR VOLUME 89.9 fL (80.0-100.0); MONOCYTES # (AUTO) 1.1 x10^3/uL (0.3-0.8); MONOCYTES % (AUTO) 14.5 % (0.0-13.0); NEUTROPHILS # (AUTO) 5.6 x10^3/uL (2.2-4.8); NEUTROPHILS % (AUTO) 71.4 % (42.0-75.0); PLATELET COUNT 135 X10^3/uL (150.0-450.0); RED BLOOD COUNT 2.76 X10^6/uL (3.5-5.4); RED CELL DISTRIBUTION WIDTH 19.8 % (11.6-16.5); WHITE BLOOD COUNT 7.9 X10^3/uL (3.6-10.0)
[2020-10-26] MEDS: [UNRECOGNIZED DRUG - OTHER] IV SCH ×5 (05:09)
[2020-10-26] MEDS: NS IV SCH ×15 (05:09→22:38)
[2020-10-26] MEDS: CHRONULAC PO SCH ×3 (05:09→21:31)
[2020-10-26] MEDS: THIAMINE HCL IV SCH ×15 (05:09→22:38)
[2020-10-26] MEDS: MVI IV SCH ×15 (05:09→22:38)
[2020-10-26 05:19] LABS: ALANINE AMINOTRANSFERASE 39 Units/L (12-78); ALKALINE PHOSPHATASE 88 Units/L (46-116); ASPARTATE AMINO TRANSFERASE 67 Units/L (15-37); BLOOD UREA NITROGEN 5 mg/dL (7-18); CALCIUM 8.3 mg/dL (8.5-10.1); CARBON DIOXIDE 28.1 mmol/L (21-32); CHLORIDE 110 mmol/L (98-107); COR CA(FOR HYPOALB) 9.9 mg/dL (8.5-10.1); CREATININE 0.95 mg/dL (0.55-1.02); SODIUM 148 mmol/L (136-145); eGFR NON BLACK RACES > 60 (>60)
[2020-10-26 05:25] LABS: AMMONIA 95 umol/L (11-32)
[2020-10-26] MEDS: BUTT CREAM (COMPOUND) TOP PRN ×2 (06:26→21:31)
[2020-10-26] MEDS: KLOR-CON PO PRN (06:27)
[2020-10-26] MEDS: K-DUR TAB 20 MEQ PO PRN (06:27)
[2020-10-26] MEDS: ALBUMIN HUMAN 25%- 100 ML 100 ML IV SCH (08:53)
[2020-10-26] MEDS: XIFAXAN PO SCH ×2 (08:56→20:33)
[2020-10-26] MEDS: ROCEPHIN VIAL 1 GRAM 1 G in NS 100 ML IV + SPIKE MINIBAG* 100 ML IV SCH (08:56)
[2020-10-26] MEDS: PEPCID 20 MG IV PREMIX* 20 MG/50 ML BAG IV SCH (08:56)
[2020-10-26] MEDS: PROTONIX INJ 40 MG VIAL IVP SCH ×2 (08:56→20:33)
--- NOTE | 2020-10-26 11:05 | PCM.PROG ---
Progress Note - Progress Note for Day of Date of Exam: 10/25/20 - Subjective Subjective: IS BEING TREATED FOR HYPOCHROMIC MICROCYTIC ANEMIA, UTI, HEPATIC ENCEPHALOPATHY, THROMYBOCYTOPENIA, ACUTE HYPOKALEMIA, AND ABNORMAL LFTs. SHE HAS RECEIVED FOUR UNITS OF PRBC SINCE ADMISSION. TODAY, SHE IS LYING IN BED WITH EYES CLOSED ON MORNING ROUNDS. SHE DOES AWAKEN TO VERBAL STIMULI. SHE DOES NOT RESPOND VERBALLY TODAY. SHE DOES MOAN OUT IF SHE IS IN PAIN. STAFF REPORTS THAT SHE HAS BEEN CONFUSED AND AGITATED THROUGHOUT THE NIGHT. ON EXAMINATION, SKIN AND SCLERA REMAIN JAUNDICED. HEART IS REGULAR IN RATE AND RHYTHM. BILATERAL LUNGS ARE NOTE WITH DIMINISHED LUNG SOUNDS THROUGHOUT. ABDOMEN IS DISTENDED. HYPOACTIVE BOWEL SOUNDS ARE NOTED THIS MORNING. SHE CONTINUES WITH 2+ PITTING EDEMA TO UPPER AND LOWER EXTREMITIES. HER VITALS THIS MORNING ARE: 98.4-40-07-94-121/60. LABS WERE OBTAINED. ABNORMAL LAB VALUES INCLUDE THE FOLLOWING: RBC 2.78, HGB 8.1, HCT 24.6, PLT COUNT 136, INR 2.42, POTASSIUM 3.0, CREATININE 1.29, CALCIUM 8.1, MAGNESIUM 1.2, TOTAL BILI 8.00, AST 73, TOTAL PROTEIN 5.8, ALBUMIN 1.8, CRP 61, AMMONIA 108. URINE CULTURE IS PENDING. SHE IS CURRENTLY RECEIVING NORMAL SALINE AT KVO, ROCEPHIN 1G IV DAILY. TODAY, WE WILL ADD A BANANA BAG WITH THIAMINE/ MAGNESIUM/ PHENOBARBITAL, ALBUMIN 25% IV DAILY, PEPCID 20MG IV DAILY, PROTONIX 40MG IV BID, MORPHINE 1-2MG IV Q4H PRN, ZOFRAN 4MG IV Q6H PRN, AND THE POTASSIUM AND MAGNESIUM PROTOCOLS. WE WILL CONSULT Barby [employer]ER[employer]. OTHERWISE, WE PLAN TO FOLLOW UP WITH AM LABS AND CONTINUE TO MONITOR. TIME SPENT ON CLINICAL ASSESSMENT, REVIEWING LABS AND IMAGING, DECISION MAKING, AND DOCUMENTATION GREATER THAN 75 MINUTES. - Past Medical Family Social History Past Med/Fam/Surg Hx: No changes since H&P Allergies: Allergies No Known Drug Allergies Allergy (Verified 08/03/18 17:37) - Review of Systems ROS: No change since H&P - Vital Signs and I&O's Vital Signs: Temperature 97.9 F Pulse Rate 93 Respiratory Rate 19 Blood Pressure [Left Arm] 152/80 Blood Pressure [Right Arm] 176/74 Blood Pressure 137/66 O2 Sat by Pulse Oximetry 93 Intake and Output: Intake & Output 10/23/20 10/24/20 10/25/20 10/26/20 11:59 11:59 11:59 11:59 Intake Total 2055 / 2055 3308 / 3308 Output Total 650 / 650 1850 / 1850 Balance 1405 / 1405 1458 / 1458 - Physical Exam Oriented: Unable to test Eyes: Normal Ear: Normal Nose: Normal Throat: Normal Cardiovascular: Normal : Normal Auscultation: Bowel Sounds: Normal, Absent Tenderness: Normal Skin: Wound (MULTIPLE STAGE II PRESSURE ULCERS TO THE PERINEUM AND SACRUM ) Musculoskeletal: Normal Psychiatric: Agitation Mood Description: Anxious Affect: Anxious Speech Pattern: Unclear - Laboratory and Diagnostics Result Diagrams: 10/26/20 04:35 10/26/20 04:35 Labs: 10/24/20 10:10 Urine,Catheterized Urine Culture - Final Escherichia Coli Proteus Mirabilis Laboratory WBC 7.9 X10^3/uL (3.6-10.0) 10/26/20 04:35 RBC 2.76 X10^6/uL (3.5-5.4) L 10/26/20 04:35 Hgb 8.4 g/dL (12.0-16.0) L 10/26/20 04:35 Hct 24.9 % (36.0-47.0) L 10/26/20 04:35 MCV 89.9 fL (80.0-100.0) 10/26/20 04:35 MCH 30.4 pg (27.0-34.0) 10/26/20 04:35 MCHC 33.8 g/dL (33.0-35.0) 10/26/20 04:35 RDW 19.8 % (11.6-16.5) H 10/26/20 04:35 Plt Count 135 X10^3/uL (150.0-450.0) L 10/26/20 04:35 Plt Count Comment Decreased (ADEQUATE) A 10/24/20 10:00 MPV 9.0 fL (7.4-11.0) 10/26/20 04:35 Neut % (Auto) 71.4 % (42.0-75.0) 10/26/20 04:35 Lymph % (Auto) 12.2 % (21.0-51.0) L 10/26/20 04:35 [place] % (Auto) 14.5 % (0.0-13.0) H 10/26/20 04:35 Eos % (Auto) 1.2 % (0.9-2.9) 10/26/20 04:35 Baso % (Auto) 0.7 % (0.2-1.0) 10/26/20 04:35 Neut # (Auto) 5.6 x10^3/uL (2.2-4.8) H 10/26/20 04:35 Lymph # (Auto) 1.0 X10^3/uL (1.3-2.9) L 10/26/20 04:35 [place] # (Auto) 1.1 x10^3/uL (0.3-0.8) H 10/26/20 04:35 Eos # (Auto) 0.1 x10^3/uL (0.0-0.2) 10/26/20 04:35 Baso # (Auto) 0.1 X10^3/uL (0.0-0.1) 10/26/20 04:35 Absolute Nucleated RBC 0.4 /100WBC 10/26/20 04:35 Plt Morphology Comment Normal (NORMAL) 10/24/20 10:00 RBC Morphology Abnormal (NORMAL) A 10/24/20 10:00 Dimorphic RBCs 2+ 10/24/20 10:00 Hypochromasia 2+ A 10/24/20 10:00 Poikilocytosis Slight A 10/24/20 10:00 Anisocytosis 3+ A 10/24/20 10:00 Microcytosis 1+ A 10/24/20 10:00 PT 25.2 SECONDS (11.8-14.3) 10/25/20 14:58 INR Target Range - 10/25/20 14:58 INR 2.42 (0.8-1.3) H 10/25/20 14:58 Sodium 148 mmol/L (136-145) H 10/26/20 04:35 Corrected Sodium TNP 10/26/20 04:35 Potassium 3.2 mmol/L (3.5-5.1) L 10/26/20 04:35 Chloride 110 mmol/L (98-107) H 10/26/20 04:35 Carbon Dioxide 28.1 mmol/L (21-32) 10/26/20 04:35 BUN 5 mg/dL (7-18) L 10/26/20 04:35 Creatinine 0.95 mg/dL (0.55-1.02) 10/26/20 04:35 Est GFR (MDRD) Af Amer > 60 (>60) 10/26/20 04:35 Est GFR (MDRD) Non-Af > 60 (>60) 10/26/20 04:35 Glucose 93 mg/dL (65-99) 10/26/20 04:35 Hemoglobin A1c Cancelled 10/24/20 10:00 Calcium 8.3 mg/dL (8.5-10.1) L 10/26/20 04:35 Corrected Calcium 9.9 mg/dL (8.5-10.1) 10/26/20 04:35 Magnesium 1.2 mg/dL (1.7-2.9) L 10/25/20 05:00 Iron 10 ug/dL (50-175) L 10/24/20 10:00 TIBC 254 ug/dL (250-450) 10/24/20 10:00 Ferritin 30 ng/mL (8-252) 10/24/20 10:00 Total Bilirubin 9.50 mg/dL (0.2-1.0) H 10/26/20 04:35 Direct Bilirubin 7.30 mg/dL (0-0.2) H* 10/26/20 04:35 Indirect Bilirubin 2.20 mg/dL (0.2-0.8) H 10/26/20 04:35 AST 67 Units/L (15-37) H 10/26/20 04:35 ALT 39 Units/L (12-78) 10/26/20 04:35 Alkaline Phosphatase 88 Units/L (46-116) 10/26/20 04:35 Ammonia 95 umol/L (11-32) H 10/26/20 04:35 Creatine Kinase 160 Units/L (26-192) 10/24/20 10:00 CK-MB (CK-2) 4.0 ng/mL (0-4.0) 10/24/20 10:00 CK/CKMB % Calc 2.5 % (<4) 10/24/20 10:00 Troponin I < 0.02 ng/mL (0-1.5) 10/24/20 10:00 C-Reactive Protein 61.00 mg/L (0-3.0) H 10/25/20 10:33 B-Natriuretic Peptide 358 pg/mL (0-79) H 10/24/20 10:00 Total Protein 6.0 g/dL (6.4-8.2) L 10/26/20 04:35 Albumin 2.0 g/dL (3.4-5.0) L 10/26/20 04:35 Globulin 4.0 g/dL (2.5-4.5) 10/26/20 04:35 Albumin/Globulin Ratio 0.5 Ratio (1.1-2.1) L 10/26/20 04:35 Amylase 25 Units/L (25-115) 10/24/20 10:00 Lipase 120 Units/L (73-393) 10/24/20 10:00 Vitamin B12 > 2000 pg/mL (193-986) H 10/24/20 10:00 Folate 6.7 ng/mL (>8.6) L 10/24/20 10:00 Specimen Type Catherized urine 10/24/20 10:10 Urine Color Dark yellow (YELLOW) 10/24/20 10:10 Urine Appearance Hazy (CLEAR) 10/24/20 10:10 Urine pH 7.0 (5.0 - 8.0) 10/24/20 10:10 Ur Specific [place] 1.010 (1.000-1.030) 10/24/20 10:10 Urine Protein 2+ (NEGATIVE) 10/24/20 10:10 Urine Glucose (UA) Negative (NEGATIVE) 10/24/20 10:10 Urine Ketones 1+ (NEGATIVE) 10/24/20 10:10 Urine Occult Blood 1+ (NEGATIVE) 10/24/20 10:10 Urine Nitrite Negative (NEGATIVE) 10/24/20 10:10 Urine Bilirubin 2+ (NEGATIVE) 10/24/20 10:10 Urine Urobilinogen 3+ (NORMAL) 10/24/20 10:10 Ur Leukocyte Esterase 3+ (NEGATIVE) 10/24/20 10:10 Urine RBC 3-5 /HPF (0-3) A 10/24/20 10:10 Urine WBC 20-30 /HPF (0-5) A 10/24/20 10:10 Ur Squamous Epith Cells Few /HPF (NEGATIVE) 10/24/20 10:10 Urine Bacteria 1+ /HPF (NEGATIVE) 10/24/20 10:10 Hyaline Casts Few /LPF (NEGATIVE) 10/24/20 10:10 Ur Culture Indicated? Yes/culture set up 10/24/20 10:10 Urine Opiates Screen Negative (NEG=<300) 10/24/20 10:10 Urine Methadone Screen Negative (NEG=<300) 10/24/20 10:10 Ur Barbiturates Screen Negative (NEG=<200) 10/24/20 10:10 Ur Phencyclidine Scrn Negative (NEG=<25) 10/24/20 10:10 Ur Amphetamines Screen Negative (NEG=<1000) 10/24/20 10:10 U Benzodiazepines Scrn Negative (NEG=<200) 10/24/20 10:10 Urine Cocaine Screen Negative (NEG=<300) 10/24/20 10:10 U Marijuana (THC) Screen Negative (NEG=<50) 10/24/20 10:10 SARS CoV-2 RNA Rapid VIMAL Negative (NEGATIVE) 10/24/20 13:29 Blood Type O POSITIVE 10/24/20 10:34 Antibody Screen Negative 10/24/20 10:34 Crossmatch See Detail 10/24/20 10:34 - Plan (1) Hypochromic microcytic anemia Status: Acute Plan: BANANA BAG WITH MVI/THIAMINE/ MAGNESIUM/ PHENOBARBITAL, ROCEPHIN 1G IV DAILY,ALBUMIN 25% IV DAILY, PEPCID 20MG IV DAILY, PROTONIX 40MG IV BID, MORPHINE 1-2MG IV Q4H PRN, ZOFRAN 4MG IV Q6H PRN, AND THE POTASSIUM AND MAGNESIUM PROTOCOLS (2) UTI (urinary tract infection) Status: Acute Qualifiers: Urinary tract infection type: acute cystitis Hematuria presence: with hematuria Qualified Code(s): N30.01 - Acute cystitis with hematuria (3) Thrombocytopenia Status: Acute (4) Acute hypokalemia Status: Acute (5) Abnormal LFTs (liver function tests) Status: Acute Plan: CONSULT GI
[2020-10-26] MEDS: [UNRECOGNIZED DRUG - OTHER] IV SCH ×10 (14:32→22:38)
[2020-10-26] MEDS ORDERED: DIFLUCAN PO ONE (17:05)
[2020-10-26] MEDS: LOTRISONE CREAM 15 G TOP SCH (21:31)
[2020-10-27] MEDS: MORPHINE SULFATE INJ 2 MG INJ IVP PRN ×4 (05:01→21:37)
[2020-10-27 05:31] LABS: BASOPHILS # (AUTO) 0.1 X10^3/uL (0.0-0.1); BASOPHILS % (AUTO) 0.8 % (0.2-1.0); EOSINOPHILS # (AUTO) 0.1 x10^3/uL (0.0-0.2); EOSINOPHILS % (AUTO) 1.7 % (0.9-2.9); HEMATOCRIT 28.1 % (36.0-47.0); HEMOGLOBIN 9.2 g/dL (12.0-16.0); LYMPHOCYTES # (AUTO) 1.2 X10^3/uL (1.3-2.9); MEAN CORPUSCULAR HEMOGLOBIN 29.4 pg (27.0-34.0); MEAN CORPUSCULAR HGB CONC 32.8 g/dL (33.0-35.0); MEAN CORPUSCULAR VOLUME 89.6 fL (80.0-100.0); MEAN PLATELET VOLUME 8.7 fL (7.4-11.0); MONOCYTES % (AUTO) 11.6 % (0.0-13.0); NEUTROPHILS # (AUTO) 6.1 x10^3/uL (2.2-4.8); NEUTROPHILS % (AUTO) 71.9 % (42.0-75.0); PLATELET COUNT 142 X10^3/uL (150.0-450.0); RED BLOOD COUNT 3.14 X10^6/uL (3.5-5.4); RED CELL DISTRIBUTION WIDTH 20.7 % (11.6-16.5); WHITE BLOOD COUNT 8.5 X10^3/uL (3.6-10.0)
[2020-10-27 05:36] LABS: ANISOCYTOSIS 1+; PLATELET MORPHOLOGY COMMENT NORMAL (NORMAL)
[2020-10-27 05:47] LABS: AMMONIA 95 umol/L (11-32)
[2020-10-27 05:55] LABS: ALANINE AMINOTRANSFERASE 35 Units/L (12-78); ALBUMIN 2.4 g/dL (3.4-5.0); ALKALINE PHOSPHATASE 96 Units/L (46-116); ASPARTATE AMINO TRANSFERASE 64 Units/L (15-37); BLOOD UREA NITROGEN 3 mg/dL (7-18); CALCIUM 8.4 mg/dL (8.5-10.1); CARBON DIOXIDE 29.1 mmol/L (21-32); CHLORIDE 111 mmol/L (98-107); COR CA(FOR HYPOALB) 9.7 mg/dL (8.5-10.1); CREATININE 0.77 mg/dL (0.55-1.02); TOTAL PROTEIN 6.6 g/dL (6.4-8.2); eGFR NON BLACK RACES > 60 (>60)
[2020-10-27 06:06] LABS: SODIUM 150 mmol/L (136-145)
[2020-10-27] MEDS: CHRONULAC PO SCH ×3 (06:26→21:32)
[2020-10-27] MEDS: NS IV SCH ×10 (06:27→08:55)
[2020-10-27] MEDS: [UNRECOGNIZED DRUG - OTHER] IV SCH ×10 (06:27→08:55)
[2020-10-27] MEDS: THIAMINE HCL IV SCH ×25 (06:27→21:31)
[2020-10-27] MEDS: MVI IV SCH ×25 (06:27→21:31)
[2020-10-27] MEDS: K-DUR TAB 20 MEQ PO PRN (06:28)
[2020-10-27] MEDS: KLOR-CON PO PRN (06:29)
[2020-10-27] MEDS ORDERED: NS 1000 ML 1,000 ML ONE (08:34)
[2020-10-27] MEDS: PROTONIX INJ 40 MG VIAL IVP SCH ×2 (08:50→21:31)
[2020-10-27] MEDS: PEPCID 20 MG IV PREMIX* 20 MG/50 ML BAG IV SCH (08:54)
[2020-10-27] MEDS: ALBUMIN HUMAN 25%- 100 ML 100 ML IV SCH (08:54)
[2020-10-27] MEDS: ROCEPHIN VIAL 1 GRAM 1 G in NS 100 ML IV + SPIKE MINIBAG* 100 ML IV SCH (08:55)
[2020-10-27] MEDS: LOTRISONE CREAM 15 G TOP SCH ×4 (08:55→20:50)
[2020-10-27] MEDS: XIFAXAN PO SCH ×2 (08:56→21:31)
[2020-10-27] MEDS: D5W IV SCH ×15 (11:23→21:31)
[2020-10-27] MEDS: [UNRECOGNIZED DRUG - OTHER] IV SCH ×15 (11:23→21:31)
[2020-10-27] MEDS: K-DUR TAB 20 MEQ PO SCH (13:49)
[2020-10-28] MEDS: XIFAXAN PO SCH ×3 (01:32→21:13)
[2020-10-28] MEDS: CHRONULAC PO SCH ×4 (01:33→22:54)
[2020-10-28 05:15] LABS: BASOPHILS % (AUTO) 0.5 % (0.2-1.0); EOSINOPHILS # (AUTO) 0.2 x10^3/uL (0.0-0.2); EOSINOPHILS % (AUTO) 1.6 % (0.9-2.9); HEMATOCRIT 27.2 % (36.0-47.0); HEMOGLOBIN 8.7 g/dL (12.0-16.0); LYMPHOCYTES # (AUTO) 1.6 X10^3/uL (1.3-2.9); LYMPHOCYTES % (AUTO) 15.6 % (21.0-51.0); MEAN CORPUSCULAR HEMOGLOBIN 29.5 pg (27.0-34.0); MEAN CORPUSCULAR HGB CONC 32.1 g/dL (33.0-35.0); MEAN CORPUSCULAR VOLUME 92.1 fL (80.0-100.0); MEAN PLATELET VOLUME 9.1 fL (7.4-11.0); MONOCYTES # (AUTO) 1.2 x10^3/uL (0.3-0.8); MONOCYTES % (AUTO) 11.7 % (0.0-13.0); NEUTROPHILS # (AUTO) 7.2 x10^3/uL (2.2-4.8); NEUTROPHILS % (AUTO) 70.6 % (42.0-75.0); PLATELET COUNT 133 X10^3/uL (150.0-450.0); RED BLOOD COUNT 2.95 X10^6/uL (3.5-5.4); RED CELL DISTRIBUTION WIDTH 20.8 % (11.6-16.5); WHITE BLOOD COUNT 10.3 X10^3/uL (3.6-10.0)
[2020-10-28 05:18] LABS: AMMONIA 179 umol/L (11-32)
[2020-10-28 05:33] LABS: ALANINE AMINOTRANSFERASE 28 Units/L (12-78); ALBUMIN 2.3 g/dL (3.4-5.0); ALKALINE PHOSPHATASE 87 Units/L (46-116); ASPARTATE AMINO TRANSFERASE 40 Units/L (15-37); BLOOD UREA NITROGEN 2 mg/dL (7-18); CALCIUM 8.1 mg/dL (8.5-10.1); CARBON DIOXIDE 27.4 mmol/L (21-32); CHLORIDE 108 mmol/L (98-107); COR CA(FOR HYPOALB) 9.5 mg/dL (8.5-10.1); COR NA(FOR HYPERGLY) 147 mmol/L (136-145); CREATININE 0.78 mg/dL (0.55-1.02); MAGNESIUM 1.7 mg/dL (1.7-2.9); SODIUM 145 mmol/L (136-145); TOTAL PROTEIN 6.3 g/dL (6.4-8.2); eGFR NON BLACK RACES > 60 (>60)
[2020-10-28 05:49] LABS: ANISOCYTOSIS 1+; PLATELET MORPHOLOGY COMMENT NORMAL (NORMAL)
[2020-10-28] MEDS: D5W IV SCH ×15 (06:00→22:54)
[2020-10-28] MEDS: [UNRECOGNIZED DRUG - OTHER] IV SCH ×15 (06:00→22:54)
[2020-10-28] MEDS: MORPHINE SULFATE INJ 2 MG INJ IVP PRN ×4 (06:00→20:40)
[2020-10-28] MEDS: MVI IV SCH ×15 (06:00→22:54)
[2020-10-28] MEDS: THIAMINE HCL IV SCH ×15 (06:00→22:54)
[2020-10-28] MEDS ORDERED: LASIX ONE (06:10)
[2020-10-28] MEDS ORDERED: LASIX IVP ONE (06:10)
--- NOTE | 2020-10-28 06:33 | RAD ---
HISTORYSOBSTUDYAP [id number] moderate cardiomegaly. Interval development of airspace disease right upper lobe and possibly in the retrocardiac left base. No large pleural effusion or pneumothorax seen.IMPRESSIONStable cardiomegaly. Developing right upper lobe pneumonia. Less definite retrocardiac density may represent additional pneumonia or hiatal hernia.Electronically signed by: DYAN ADAM (Oct 28, 2020 06:32:01)
[2020-10-28] MEDS: ALBUMIN HUMAN 25%- 100 ML 100 ML IV SCH (08:58)
[2020-10-28] MEDS: K-DUR TAB 20 MEQ PO SCH (08:59)
[2020-10-28] MEDS: LOTRISONE CREAM 15 G TOP SCH ×4 (08:59→21:12)
[2020-10-28] MEDS: PROTONIX INJ 40 MG VIAL IVP SCH ×2 (09:00→21:13)
[2020-10-28] MEDS: PEPCID 20 MG IV PREMIX* 20 MG/50 ML BAG IV SCH (09:00)
[2020-10-28] MEDS: ROCEPHIN VIAL 1 GRAM 1 G in NS 100 ML IV + SPIKE MINIBAG* 100 ML IV SCH (09:00)
[2020-10-28] MEDS: ZOSYN VIAL 3.375 GRAMS 3.375 G in NS 100 ML IV + SPIKE MINIBAG* 100 ML IV SCH ×3 (10:02→21:50)
[2020-10-28] MEDS: XOPENEX 1.25 MG/3 ML NEBULE NEB SCH ×2 (12:44→16:10)
[2020-10-29] MEDS: XOPENEX 1.25 MG/3 ML NEBULE NEB SCH ×5 (00:05→16:40)
[2020-10-29] MEDS: MORPHINE SULFATE INJ 2 MG INJ IVP PRN ×2 (04:10→13:02)
[2020-10-29 05:15] LABS: BASOPHILS # (AUTO) 0.1 X10^3/uL (0.0-0.1); BASOPHILS % (AUTO) 1.1 % (0.2-1.0); EOSINOPHILS # (AUTO) 0.1 x10^3/uL (0.0-0.2); EOSINOPHILS % (AUTO) 0.9 % (0.9-2.9); HEMATOCRIT 25.2 % (36.0-47.0); HEMOGLOBIN 7.9 g/dL (12.0-16.0); LYMPHOCYTES # (AUTO) 1.1 X10^3/uL (1.3-2.9); LYMPHOCYTES % (AUTO) 9.9 % (21.0-51.0); MEAN CORPUSCULAR HEMOGLOBIN 29.5 pg (27.0-34.0); MEAN CORPUSCULAR HGB CONC 31.3 g/dL (33.0-35.0); MEAN CORPUSCULAR VOLUME 94.2 fL (80.0-100.0); MEAN PLATELET VOLUME 9.1 fL (7.4-11.0); MONOCYTES % (AUTO) 8.4 % (0.0-13.0); NEUTROPHILS # (AUTO) 9.1 x10^3/uL (2.2-4.8); NEUTROPHILS % (AUTO) 79.7 % (42.0-75.0); PLATELET COUNT 121 X10^3/uL (150.0-450.0); RED BLOOD COUNT 2.68 X10^6/uL (3.5-5.4); RED CELL DISTRIBUTION WIDTH 21.2 % (11.6-16.5); WHITE BLOOD COUNT 11.4 X10^3/uL (3.6-10.0)
[2020-10-29 05:19] LABS: AMMONIA 183 umol/L (11-32)
[2020-10-29 05:35] LABS: ALANINE AMINOTRANSFERASE 21 Units/L (12-78); ALBUMIN 2.2 g/dL (3.4-5.0); ALKALINE PHOSPHATASE 76 Units/L (46-116); ASPARTATE AMINO TRANSFERASE 37 Units/L (15-37); BLOOD UREA NITROGEN 2 mg/dL (7-18); CALCIUM 8.1 mg/dL (8.5-10.1); CARBON DIOXIDE 26.4 mmol/L (21-32); CHLORIDE 109 mmol/L (98-107); COR CA(FOR HYPOALB) 9.5 mg/dL (8.5-10.1); COR NA(FOR HYPERGLY) 148 mmol/L (136-145); SODIUM 147 mmol/L (136-145); TOTAL PROTEIN 5.6 g/dL (6.4-8.2); eGFR NON BLACK RACES > 60 (>60)
[2020-10-29 05:36] LABS: ANISOCYTOSIS 1+; PLATELET MORPHOLOGY COMMENT NORMAL (NORMAL)
[2020-10-29] MEDS: ZOSYN VIAL 3.375 GRAMS 3.375 G in NS 100 ML IV + SPIKE MINIBAG* 100 ML IV SCH ×3 (06:00→21:07)
[2020-10-29] MEDS: CHRONULAC PO SCH ×3 (08:13→21:07)
[2020-10-29] MEDS: PROTONIX INJ 40 MG VIAL IVP SCH ×2 (08:49→21:04)
[2020-10-29] MEDS: ALBUMIN HUMAN 25%- 100 ML 100 ML IV SCH (08:49)
[2020-10-29] MEDS: PEPCID 20 MG IV PREMIX* 20 MG/50 ML BAG IV SCH (08:50)
[2020-10-29] MEDS: MVI IV SCH ×11 (08:50→11:07)
[2020-10-29] MEDS: D5W IV SCH ×11 (08:50→11:07)
[2020-10-29] MEDS: THIAMINE HCL IV SCH ×11 (08:50→11:07)
[2020-10-29] MEDS: [UNRECOGNIZED DRUG - OTHER] IV SCH ×11 (08:50→11:07)
[2020-10-29] MEDS: LOTRISONE CREAM 15 G TOP SCH ×4 (08:51→21:05)
[2020-10-29] MEDS: K-DUR TAB 20 MEQ PO SCH (08:51)
[2020-10-29] MEDS: XIFAXAN PO SCH ×2 (08:51→21:06)
[2020-10-29] MEDS: LASIX IVP SCH ×2 (10:11→21:06)
--- NOTE | 2020-10-29 13:46 | RAD ---
HISTORYNG TUBE PLACEMENTSTUDYKUBCOMPARISONNoneTECHNIQUEAbdomen KUBFINDINGSNG tube in good position. Nonobstructive b owel gas pattern. No free air, pneumatosis, or portal venous gas. Calcifications in the pelvis are li mayco phleboliths.IMPRESSIONNG tube in good position.Electronically signed by: Trevin Fry (Oct 29 13:43:37)
--- NOTE | 2020-10-29 14:40 | PCM.PROG ---
Progress Note - Progress Note for Day of Date of Exam: 10/26/20 - Subjective Subjective: IS BEING TREATED FOR HYPOCHROMIC MICROCYTIC ANEMIA, UTI, HEPATIC ENCEPHALOPATHY, THROMYBOCYTOPENIA, ACUTE HYPOKALEMIA, AND ABNORMAL LFTs. SHE HAS RECEIVED FOUR UNITS OF PRBC SINCE ADMISSION. TODAY, SHE IS LYING IN BED WITH EYES CLOSED ON MORNING ROUNDS. SHE DOES AWAKEN TO VERBAL STIMULI, BUT QUICKLY CLOSES EYES AGAIN. STAFF REPORTS THAT SHE HAS HAD INTERMITTENT CONFUSION AND AGITATION THROUGHOUT THE NIGHT. ON EXAMINATION, SKIN AND SCLERA REMAIN JAUNDICED. HEART IS REGULAR IN RATE AND RHYTHM. BILATERAL LUNGS ARE NOTED WITH RHONCHI THROUGHOUT. ABDOMEN IS DISTENDED. HYPOACTIVE BOWEL SOUNDS ARE NOTED THIS MORNING. SHE CONTINUES WITH 1+ PITTING EDEMA TO UPPER AND LOWER EXTREMITIES. HER VITALS THIS MORNING ARE: 97.9-95-17-92%-157/70. LABS WERE OBTAINED. ABNORMAL LAB VALUES INCLUDE THE FOLLOWING: RBC 2.76, HGB 8.4, HCT 24.9, PLT COUNT 135, SODIUM 148, POTASSIUM 3.2, CHLORIDE 110, BUN 5, CALCIUM 8.3, TOTAL BILI 9.50, DIRECT BILI 7.30, AST 67, AMMONIA 95, CRP 72.70, BNP 1420, TOTAL PROTEIN 6.0, ALBUMIN 2.0. URINE CULTURE REPORTS GROWTH OF GRAM NEGATIVE RODS. CONSULTED WITH HER YESTERDAY AND TOOK HER DOWN FOR AN EGD. IT REVEALED: Mild distal esophagitis, moderate gastritis with erosions, moderately severe portal hypertensive gastropathy, mild duodenitis, no active upper GI bleeding noted. HE STARTED LACTULOSE AND XIFAXIN. SHE IS CURRENTLY RECEIVING A BANANA BAG WITH THIAMINE/ MAGNESIUM/ PHENOBARBITAL, ALBUMIN 25% IV DAILY, PEPCID 20MG IV DAILY, PROTONIX 40MG IV BID, MORPHINE 1-2MG IV Q4H PRN, ZOFRAN 4MG IV Q6H PRN, AND THE POTASSIUM AND MAGNESIUM PROTOCOLS, LACTULOSE, XIFAXIN, AND ROCEPHIN 1G IV DAILY. WE WILL CONTINUE WITH CURRENT PLAN OF CARE TODAY. OTHERWISE, WE PLAN TO FOLLOW UP WITH AM LABS AND CONTINUE TO MONITOR. TIME SPENT ON CLINICAL ASSESSMENT, REVIEWING LABS AND IMAGING, DECISION MAKING, AND DOCUMENTATION GREATER THAN 75 MINUTES. - Past Medical Family Social History Past Med/Fam/Surg Hx: No changes since H&P Allergies: Allergies No Known Drug Allergies Allergy (Verified 08/03/18 17:37) - Review of Systems ROS: No change since H&P - Vital Signs and I&O's Vital Signs: Temperature 98.9 F Pulse Rate 101 Respiratory Rate 18 Blood Pressure [Left Arm] 152/80 Blood Pressure [Right Arm] 176/74 Blood Pressure 120/58 O2 Sat by Pulse Oximetry 95 Intake and Output: Intake & Output 10/27/20 10/28/20 10/29/20 10/30/20 11:59 11:59 11:59 11:59 Intake Total 3424 / 3424 2570 / 2570 1723 / 1723 Output Total 1860 / 1860 725 / 725 1805 / 1805 Balance 1564 / 1564 1845 / 1845 -82 / -82 - Physical Exam Oriented: Unable to test Eyes: Normal Ear: Normal Nose: Normal Throat: Normal Respiratory: Generalized, Diminished Cardiovascular: Normal : Normal Auscultation: Bowel Sounds: Normal, Absent Palpation: Normal Tenderness: Normal Skin: Wound (MULTIPLE STAGE II PRESSURE ULCERS TO THE PERINEUM AND SACRUM ) Musculoskeletal: Normal Psychiatric: Agitation Mood Description: Anxious Affect: Anxious Speech Pattern: Unclear, Delayed - Laboratory and Diagnostics Result Diagrams: 10/29/20 04:23 10/29/20 04:23 Labs: 10/24/20 10:10 Urine,Catheterized Urine Culture - Final Escherichia Coli Proteus Mirabilis Laboratory WBC 11.4 X10^3/uL (3.6-10.0) H 10/29/20 04:23 RBC 2.68 X10^6/uL (3.5-5.4) L 10/29/20 04:23 Hgb 7.9 g/dL (12.0-16.0) L 10/29/20 04:23 Hct 25.2 % (36.0-47.0) L 10/29/20 04:23 MCV 94.2 fL (80.0-100.0) 10/29/20 04:23 MCH 29.5 pg (27.0-34.0) 10/29/20 04:23 MCHC 31.3 g/dL (33.0-35.0) L 10/29/20 04:23 RDW 21.2 % (11.6-16.5) H 10/29/20 04:23 Plt Count 121 X10^3/uL (150.0-450.0) L 10/29/20 04:23 Plt Count Comment Decreased (ADEQUATE) A 10/29/20 04:23 MPV 9.1 fL (7.4-11.0) 10/29/20 04:23 Neut % (Auto) 79.7 % (42.0-75.0) H 10/29/20 04:23 Lymph % (Auto) 9.9 % (21.0-51.0) L 10/29/20 04:23 [place] % (Auto) 8.4 % (0.0-13.0) 10/29/20 04:23 Eos % (Auto) 0.9 % (0.9-2.9) 10/29/20 04:23 Baso % (Auto) 1.1 % (0.2-1.0) H 10/29/20 04:23 Neut # (Auto) 9.1 x10^3/uL (2.2-4.8) H 10/29/20 04:23 Lymph # (Auto) 1.1 X10^3/uL (1.3-2.9) L 10/29/20 04:23 [place] # (Auto) 1.0 x10^3/uL (0.3-0.8) H 10/29/20 04:23 Eos # (Auto) 0.1 x10^3/uL (0.0-0.2) 10/29/20 04:23 Baso # (Auto) 0.1 X10^3/uL (0.0-0.1) 10/29/20 04:23 Absolute Nucleated RBC 0.2 /100WBC 10/29/20 04:23 Plt Morphology Comment Normal (NORMAL) 10/29/20 04:23 RBC Morphology Abnormal (NORMAL) A 10/29/20 04:23 Dimorphic RBCs 2+ 10/24/20 10:00 Hypochromasia 2+ A 10/24/20 10:00 Poikilocytosis Slight A 10/24/20 10:00 Anisocytosis 1+ A 10/29/20 04:23 Microcytosis 1+ A 10/24/20 10:00 PT 27.7 SECONDS (11.8-14.3) 10/29/20 04:23 INR Target Range - 10/29/20 04:23 INR 2.74 (0.8-1.3) H 10/29/20 04:23 Sodium 147 mmol/L (136-145) H 10/29/20 04:23 Corrected Sodium 148 mmol/L (136-145) H 10/29/20 04:23 Potassium 3.0 mmol/L (3.5-5.1) L* 10/29/20 04:23 Chloride 109 mmol/L (98-107) H 10/29/20 04:23 Carbon Dioxide 26.4 mmol/L (21-32) 10/29/20 04:23 BUN 2 mg/dL (7-18) L 10/29/20 04:23 Creatinine 0.90 mg/dL (0.55-1.02) 10/29/20 04:23 Est GFR (MDRD) Af Amer > 60 (>60) 10/29/20 04:23 Est GFR (MDRD) Non-Af > 60 (>60) 10/29/20 04:23 Glucose 153 mg/dL (65-99) H 10/29/20 04:23 Hemoglobin A1c Cancelled 10/24/20 10:00 Calcium 8.1 mg/dL (8.5-10.1) L 10/29/20 04:23 Corrected Calcium 9.5 mg/dL (8.5-10.1) 10/29/20 04:23 Magnesium 1.4 mg/dL (1.7-2.9) L 10/29/20 04:23 Iron 10 ug/dL (50-175) L 10/24/20 10:00 TIBC 254 ug/dL (250-450) 10/24/20 10:00 Ferritin 30 ng/mL (8-252) 10/24/20 10:00 Total Bilirubin 10.90 mg/dL (0.2-1.0) H 10/29/20 04:23 Direct Bilirubin 7.30 mg/dL (0-0.2) H* 10/26/20 04:35 Indirect Bilirubin 2.20 mg/dL (0.2-0.8) H 10/26/20 04:35 AST 37 Units/L (15-37) 10/29/20 04:23 ALT 21 Units/L (12-78) 10/29/20 04:23 Alkaline Phosphatase 76 Units/L (46-116) 10/29/20 04:23 Ammonia 183 umol/L (11-32) H 10/29/20 04:23 Creatine Kinase 160 Units/L (26-192) 10/24/20 10:00 CK-MB (CK-2) 4.0 ng/mL (0-4.0) 10/24/20 10:00 CK/CKMB % Calc 2.5 % (<4) 10/24/20 10:00 Troponin I < 0.02 ng/mL (0-1.5) 10/24/20 10:00 C-Reactive Protein 77.70 mg/L (0-3.0) H 10/29/20 04:23 B-Natriuretic Peptide 1170 pg/mL (0-79) H* 10/29/20 04:23 Total Protein 5.6 g/dL (6.4-8.2) L 10/29/20 04:23 Albumin 2.2 g/dL (3.4-5.0) L 10/29/20 04:23 Globulin 3.4 g/dL (2.5-4.5) 10/29/20 04:23 Albumin/Globulin Ratio 0.6 Ratio (1.1-2.1) L 10/29/20 04:23 Amylase 25 Units/L (25-115) 10/24/20 10:00 Lipase 120 Units/L (73-393) 10/24/20 10:00 Vitamin B12 > 2000 pg/mL (193-986) H 10/24/20 10:00 Folate 6.7 ng/mL (>8.6) L 10/24/20 10:00 Specimen Type Catherized urine 10/24/20 10:10 Urine Color Dark yellow (YELLOW) 10/24/20 10:10 Urine Appearance Hazy (CLEAR) 10/24/20 10:10 Urine pH 7.0 (5.0 - 8.0) 10/24/20 10:10 Ur Specific [place] 1.010 (1.000-1.030) 10/24/20 10:10 Urine Protein 2+ (NEGATIVE) 10/24/20 10:10 Urine Glucose (UA) Negative (NEGATIVE) 10/24/20 10:10 Urine Ketones 1+ (NEGATIVE) 10/24/20 10:10 Urine Occult Blood 1+ (NEGATIVE) 10/24/20 10:10 Urine Nitrite Negative (NEGATIVE) 10/24/20 10:10 Urine Bilirubin 2+ (NEGATIVE) 10/24/20 10:10 Urine Urobilinogen 3+ (NORMAL) 10/24/20 10:10 Ur Leukocyte Esterase 3+ (NEGATIVE) 10/24/20 10:10 Urine RBC 3-5 /HPF (0-3) A 10/24/20 10:10 Urine WBC 20-30 /HPF (0-5) A 10/24/20 10:10 Ur Squamous Epith Cells Few /HPF (NEGATIVE) 10/24/20 10:10 Urine Bacteria 1+ /HPF (NEGATIVE) 10/24/20 10:10 Hyaline Casts Few /LPF (NEGATIVE) 10/24/20 10:10 Ur Culture Indicated? Yes/culture set up 10/24/20 10:10 Stool Description Fob tube 10/26/20 14:55 Stl Occult Blood (IFOB) Negative (NEGATIVE) 10/26/20 14:55 Urine Opiates Screen Negative (NEG=<300) 10/24/20 10:10 Urine Methadone Screen Negative (NEG=<300) 10/24/20 10:10 Ur Barbiturates Screen Negative (NEG=<200) 10/24/20 10:10 Ur Phencyclidine Scrn Negative (NEG=<25) 10/24/20 10:10 Ur Amphetamines Screen Negative (NEG=<1000) 10/24/20 10:10 U Benzodiazepines Scrn Negative (NEG=<200) 10/24/20 10:10 Urine Cocaine Screen Negative (NEG=<300) 10/24/20 10:10 U Marijuana (THC) Screen Negative (NEG=<50) 10/24/20 10:10 SARS CoV-2 RNA Rapid VIMAL Negative (NEGATIVE) 10/24/20 13:29 Blood Type O POSITIVE 10/24/20 10:34 Antibody Screen Negative 10/24/20 10:34 Crossmatch See Detail 10/24/20 10:34 - Plan (1) Hypochromic microcytic anemia Status: Acute Plan: BANANA BAG WITH MVI/THIAMINE/ MAGNESIUM/ PHENOBARBITAL, ROCEPHIN 1G IV D AILY, XIFAXIN, LACTULOSE, ALBUMIN 25% IV DAILY, PEPCID 20MG IV DAILY, PROTONIX 40MG IV BID, MORPHINE 1-2MG IV Q4H PRN, ZOFRAN 4MG IV Q6H PRN, AND THE POTASSIUM AND MAGNESIUM PROTOCOLS (2) UTI (urinary tract infection) Status: Acute Qualifiers: Urinary tract infection type: acute cystitis Hematuria presence: with hematuria Qualified Code(s): N30.01 - Acute cystitis with hematuria (3) Thrombocytopenia Status: Acute (4) Acute hypokalemia Status: Acute (5) Abnormal LFTs (liver function tests) Status: Acute Plan: CONSULT GI
--- NOTE | 2020-10-29 14:52 | PCM.PROG ---
Progress Note - Progress Note for Day of Date of Exam: 10/29/20 - Subjective Subjective: IS BEING TREATED FOR HYPOCHROMIC MICROCYTIC ANEMIA, PNEUMONIA, UTI, HEPATIC ENCEPHALOPATHY, LIVER FAILURE, THROMYBOCYTOPENIA, ACUTE HYPOKALEMIA, AND ABNORMAL LFTs. SHE HAS RECEIVED FOUR UNITS OF PRBC SINCE ADMISSION. HGB HAS REMAINED STABLE OVER THE WEEKEND. STAFF REPORTS THAT THEY H AVE BEEN UNABLE TO GIVE PATIENT HER ORAL MEDICATIONS DUE TO DROWSINESS. TODAY, SHE IS LYING IN BED WITH EYES CLOSED ON MORNING ROUNDS. SHE ONLY MOANS TO PAINFUL STIMULI, BUT DOES NOT OPEN EYES OR RESPOND VERBALLY. ON EXAMINATION, SKIN AND SCLERA REMAIN JAUNDICED. HEART IS REGULAR IN RATE AND RHYTHM. BILATERAL LUNGS ARE NOTED WITH RHONCHI THROUGHOUT. ABDOMEN IS DISTENDED. HYPOACTIVE BOWEL SOUNDS ARE NOTED THIS MORNING. SHE CONTINUES WITH 1+ PITTING EDEMA TO UPPER AND LOWER EXTREMITIES. HER VITALS THIS MORNING ARE: 98.9-96-20-97%-119/58. LABS WERE OBTAINED. ABNORMAL LAB VALUES INCLUDE THE FOLLOWING: WBC 11.4, RBC 2.68, HGB 7.9, HCT 25.2, PLT COUNT 121, INR 2.74, SODIUM 147, POTASSIUM 3.0, CHLORIDE 109, BUN 2, GLUCOSE 153, CALCIUM 8.1, MAGNESIUM 1.4, TOTAL BILI 10.90, AMMONIA 183, CRP 77.70, BNP 1170, TOTAL PROTEIN 5.6, ALBUMIN 2.2. URINE CULTURE REPORTS GROWTH OF GRAM NEGATIVE RODS. SHE IS CURRENTLY RECEIVING A BANANA BAG WITH THIAMINE/ MAGNESIUM/ PHENOBARBITAL, ALBUMIN 25% IV DAILY, PEPCID 20MG IV DAILY, PROTONIX 40MG IV BID, MORPHINE 1-2MG IV Q4H PRN, ZOFRAN 4MG IV Q6H PRN, AND THE POTASSIUM AND MAGNESIUM PROTOCOLS, LACTULOSE, XIFAXIN, NEB TX Q6H, AND ZOSYN 3.375G IV TID. WE WILL CONTINUE WITH CURRENT PLAN OF CARE TODAY. TODAY, WE WILL CONSULT WITH FOR POSSIBLE NG TUBE PLACEMENT FOR ADMINISTRATION OF MEDICATIONS. WE WILL ALSO START LASIX 40MG IV Q12H. OTHERWISE, WE WILL CONTINUE WITH CURRENT PLAN OF CARE. WE PLAN TO FOLLOW UP WITH AM LABS AND CONTINUE TO MONITOR. TIME SPENT ON CLINICAL ASSESSMENT, REVIEWING LABS AND IMAGING, DECISION MAKING, AND DOCUMENTATION GREATER THAN 75 MINUTES. - Past Medical Family Social History Past Med/Fam/Surg Hx: No changes since H&P Allergies: Allergies No Known Drug Allergies Allergy (Verified 08/03/18 17:37) - Review of Systems ROS: No change since H&P - Vital Signs and I&O's Vital Signs: Temperature 98.9 F Pulse Rate 99 Respiratory Rate 15 Blood Pressure [Left Arm] 152/80 Blood Pressure [Right Arm] 176/74 Blood Pressure 118/56 O2 Sat by Pulse Oximetry 97 Intake and Output: Intake & Output 10/27/20 10/28/20 10/29/20 10/30/20 11:59 11:59 11:59 11:59 Intake Total 3424 / 3424 2570 / 2570 1723 / 1723 665 / 665 Output Total 1860 / 1860 725 / 725 1805 / 1805 775 / 775 Balance 1564 / 1564 1845 / 1845 -82 / -82 -110 / -110 - Physical Exam Oriented: Unable to test Eyes: Normal Ear: Normal Nose: Normal Throat: Normal Respiratory: Generalized, Rhonchi Cardiovascular: Normal : Normal Auscultation: Bowel Sounds: Normal, Absent Palpation: Normal Tenderness: Normal Skin: Wound (MULTIPLE STAGE II PRESSURE ULCERS TO THE PERINEUM AND SACRUM ) Musculoskeletal: Normal Psychiatric: Other Mood Description: Flat Affect: Flat Speech Pattern: Unclear, Delayed - Laboratory and Diagnostics Result Diagrams: 10/29/20 04:23 10/29/20 04:23 Labs: 10/24/20 10:10 Urine,Catheterized Urine Culture - Final Escherichia Coli Proteus Mirabilis Laboratory WBC 11.4 X10^3/uL (3.6-10.0) H 10/29/20 04:23 RBC 2.68 X10^6/uL (3.5-5.4) L 10/29/20 04:23 Hgb 7.9 g/dL (12.0-16.0) L 10/29/20 04:23 Hct 25.2 % (36.0-47.0) L 10/29/20 04:23 MCV 94.2 fL (80.0-100.0) 10/29/20 04:23 MCH 29.5 pg (27.0-34.0) 10/29/20 04:23 MCHC 31.3 g/dL (33.0-35.0) L 10/29/20 04:23 RDW 21.2 % (11.6-16.5) H 10/29/20 04:23 Plt Count 121 X10^3/uL (150.0-450.0) L 10/29/20 04:23 Plt Count Comment Decreased (ADEQUATE) A 10/29/20 04:23 MPV 9.1 fL (7.4-11.0) 10/29/20 04:23 Neut % (Auto) 79.7 % (42.0-75.0) H 10/29/20 04:23 Lymph % (Auto) 9.9 % (21.0-51.0) L 10/29/20 04:23 [place] % (Auto) 8.4 % (0.0-13.0) 10/29/20 04:23 Eos % (Auto) 0.9 % (0.9-2.9) 10/29/20 04:23 Baso % (Auto) 1.1 % (0.2-1.0) H 10/29/20 04:23 Neut # (Auto) 9.1 x10^3/uL (2.2-4.8) H 10/29/20 04:23 Lymph # (Auto) 1.1 X10^3/uL (1.3-2.9) L 10/29/20 04:23 [place] # (Auto) 1.0 x10^3/uL (0.3-0.8) H 10/29/20 04:23 Eos # (Auto) 0.1 x10^3/uL (0.0-0.2) 10/29/20 04:23 Baso # (Auto) 0.1 X10^3/uL (0.0-0.1) 10/29/20 04:23 Absolute Nucleated RBC 0.2 /100WBC 10/29/20 04:23 Plt Morphology Comment Normal (NORMAL) 10/29/20 04:23 RBC Morphology Abnormal (NORMAL) A 10/29/20 04:23 Dimorphic RBCs 2+ 10/24/20 10:00 Hypochromasia 2+ A 10/24/20 10:00 Poikilocytosis Slight A 10/24/20 10:00 Anisocytosis 1+ A 10/29/20 04:23 Microcytosis 1+ A 10/24/20 10:00 PT 27.7 SECONDS (11.8-14.3) 10/29/20 04:23 INR Target Range - 10/29/20 04:23 INR 2.74 (0.8-1.3) H 10/29/20 04:23 Sodium 147 mmol/L (136-145) H 10/29/20 04:23 Corrected Sodium 148 mmol/L (136-145) H 10/29/20 04:23 Potassium 3.0 mmol/L (3.5-5.1) L* 10/29/20 04:23 Chloride 109 mmol/L (98-107) H 10/29/20 04:23 Carbon Dioxide 26.4 mmol/L (21-32) 10/29/20 04:23 BUN 2 mg/dL (7-18) L 10/29/20 04:23 Creatinine 0.90 mg/dL (0.55-1.02) 10/29/20 04:23 Est GFR (MDRD) Af Amer > 60 (>60) 10/29/20 04:23 Est GFR (MDRD) Non-Af > 60 (>60) 10/29/20 04:23 Glucose 153 mg/dL (65-99) H 10/29/20 04:23 Hemoglobin A1c Cancelled 10/24/20 10:00 Calcium 8.1 mg/dL (8.5-10.1) L 10/29/20 04:23 Corrected Calcium 9.5 mg/dL (8.5-10.1) 10/29/20 04:23 Magnesium 1.4 mg/dL (1.7-2.9) L 10/29/20 04:23 Iron 10 ug/dL (50-175) L 10/24/20 10:00 TIBC 254 ug/dL (250-450) 10/24/20 10:00 Ferritin 30 ng/mL (8-252) 10/24/20 10:00 Total Bilirubin 10.90 mg/dL (0.2-1.0) H 10/29/20 04:23 Direct Bilirubin 7.30 mg/dL (0-0.2) H* 10/26/20 04:35 Indirect Bilirubin 2.20 mg/dL (0.2-0.8) H 10/26/20 04:35 AST 37 Units/L (15-37) 10/29/20 04:23 ALT 21 Units/L (12-78) 10/29/20 04:23 Alkaline Phosphatase 76 Units/L (46-116) 10/29/20 04:23 Ammonia 183 umol/L (11-32) H 10/29/20 04:23 Creatine Kinase 160 Units/L (26-192) 10/24/20 10:00 CK-MB (CK-2) 4.0 ng/mL (0-4.0) 10/24/20 10:00 CK/CKMB % Calc 2.5 % (<4) 10/24/20 10:00 Troponin I < 0.02 ng/mL (0-1.5) 10/24/20 10:00 C-Reactive Protein 77.70 mg/L (0-3.0) H 10/29/20 04:23 B-Natriuretic Peptide 1170 pg/mL (0-79) H* 10/29/20 04:23 Total Protein 5.6 g/dL (6.4-8.2) L 10/29/20 04:23 Albumin 2.2 g/dL (3.4-5.0) L 10/29/20 04:23 Globulin 3.4 g/dL (2.5-4.5) 10/29/20 04:23 Albumin/Globulin Ratio 0.6 Ratio (1.1-2.1) L 10/29/20 04:23 Amylase 25 Units/L (25-115) 10/24/20 10:00 Lipase 120 Units/L (73-393) 10/24/20 10:00 Vitamin B12 > 2000 pg/mL (193-986) H 10/24/20 10:00 Folate 6.7 ng/mL (>8.6) L 10/24/20 10:00 Specimen Type Catherized urine 10/24/20 10:10 Urine Color Dark yellow (YELLOW) 10/24/20 10:10 Urine Appearance Hazy (CLEAR) 10/24/20 10:10 Urine pH 7.0 (5.0 - 8.0) 10/24/20 10:10 Ur Specific [place] 1.010 (1.000-1.030) 10/24/20 10:10 Urine Protein 2+ (NEGATIVE) 10/24/20 10:10 Urine Glucose (UA) Negative (NEGATIVE) 10/24/20 10:10 Urine Ketones 1+ (NEGATIVE) 10/24/20 10:10 Urine Occult Blood 1+ (NEGATIVE) 10/24/20 10:10 Urine Nitrite Negative (NEGATIVE) 10/24/20 10:10 Urine Bilirubin 2+ (NEGATIVE) 10/24/20 10:10 Urine Urobilinogen 3+ (NORMAL) 10/24/20 10:10 Ur Leukocyte Esterase 3+ (NEGATIVE) 10/24/20 10:10 Urine RBC 3-5 /HPF (0-3) A 10/24/20 10:10 Urine WBC 20-30 /HPF (0-5) A 10/24/20 10:10 Ur Squamous Epith Cells Few /HPF (NEGATIVE) 10/24/20 10:10 Urine Bacteria 1+ /HPF (NEGATIVE) 10/24/20 10:10 Hyaline Casts Few /LPF (NEGATIVE) 10/24/20 10:10 Ur Culture Indicated? Yes/culture set up 10/24/20 10:10 Stool Description Fob tube 10/26/20 14:55 Stl Occult Blood (IFOB) Negative (NEGATIVE) 10/26/20 14:55 Urine Opiates Screen Negative (NEG=<300) 10/24/20 10:10 Urine Methadone Screen Negative (NEG=<300) 10/24/20 10:10 Ur Barbiturates Screen Negative (NEG=<200) 10/24/20 10:10 Ur Phencyclidine Scrn Negative (NEG=<25) 10/24/20 10:10 Ur Amphetamines Screen Negative (NEG=<1000) 10/24/20 10:10 U Benzodiazepines Scrn Negative (NEG=<200) 10/24/20 10:10 Urine Cocaine Screen Negative (NEG=<300) 10/24/20 10:10 U Marijuana (THC) Screen Negative (NEG=<50) 10/24/20 10:10 SARS CoV-2 RNA Rapid VIMAL Negative (NEGATIVE) 10/24/20 13:29 Blood Type O POSITIVE 10/24/20 10:34 Antibody Screen Negative 10/24/20 10:34 Crossmatch See Detail 10/24/20 10:34 - Plan (1) Hypochromic microcytic anemia Status: Acute Plan: BANANA BAG WITH MVI/THIAMINE/ MAGNESIUM/ PHENOBARBITAL, ZOSYN TID, NEB TX, XIFAXIN, LACTULOSE, ALBUMIN 25% IV DAILY, PEPCID 20MG IV DAILY, PROTONIX 40MG IV BID, MORPHINE 1-2MG IV Q4H PRN, ZOFRAN 4MG IV Q6H PRN, AND THE POTASSIUM AND MAGNESIUM PROTOCOLS (2) Pneumonia Status: Acute Qualifiers: Pneumonia type: due to unspecified organism Laterality: right Lung location: upper lobe of lung Qualified Code(s): J18.9 - Pneumonia, unspecified organism (3) UTI (urinary tract infection) Status: Acute Qualifiers: Urinary tract infection type: acute cystitis Hematuria presence: with hematuria Qualified Code(s): N30.01 - Acute cystitis with hematuria (4) Thrombocytopenia Status: Acute (5) Acute hypokalemia Status: Acute (6) Abnormal LFTs (liver function tests) Status: Acute Plan: CONSULT GI
[2020-10-30] MEDS: XOPENEX 1.25 MG/3 ML NEBULE NEB SCH ×4 (00:07→17:06)
[2020-10-30] MEDS: BUTT CREAM (COMPOUND) TOP PRN ×2 (00:49→19:25)
[2020-10-30 04:47] LABS: BASOPHILS # (AUTO) 0.1 X10^3/uL (0.0-0.1); BASOPHILS % (AUTO) 0.5 % (0.2-1.0); EOSINOPHILS # (AUTO) 0.1 x10^3/uL (0.0-0.2); EOSINOPHILS % (AUTO) 0.8 % (0.9-2.9); HEMATOCRIT 25.4 % (36.0-47.0); LYMPHOCYTES # (AUTO) 1.4 X10^3/uL (1.3-2.9); LYMPHOCYTES % (AUTO) 10.1 % (21.0-51.0); MEAN CORPUSCULAR HEMOGLOBIN 29.5 pg (27.0-34.0); MEAN CORPUSCULAR HGB CONC 31.4 g/dL (33.0-35.0); MEAN PLATELET VOLUME 9.2 fL (7.4-11.0); MONOCYTES % (AUTO) 7.2 % (0.0-13.0); NEUTROPHILS # (AUTO) 11.1 x10^3/uL (2.2-4.8); NEUTROPHILS % (AUTO) 81.4 % (42.0-75.0); PLATELET COUNT 122 X10^3/uL (150.0-450.0); RED CELL DISTRIBUTION WIDTH 20.6 % (11.6-16.5); WHITE BLOOD COUNT 13.6 X10^3/uL (3.6-10.0)
[2020-10-30 05:00] LABS: AMMONIA 131 umol/L (11-32)
--- NOTE | 2020-10-30 05:04 | RAD ---
PROCEDURE: Chest X-ray 1 View .HISTORY: Short of breath.TECHNIQUE: AP view .COMPARISON: 10/28/2020.TECHNICAL QUALITY: Satisfactory .FINDINGS:Unchanged cardiomegaly.Normal central vascularity.Unchanged dense consolidation right upper lobe. Some mild consolidation left mid lung field more parent than on previous study. Consolidation behind the heart in the left lower lobe is not excluded. No pleural fluid or pneumothorax.IMPRESSION:1. Unchanged pneumonia on the right knee increased on the left.2. Possible left lower lobe pneumonia.3. Unchanged cardiomegaly.Electronically signed by: Ankit Gann (Oct 30, 2020 05:02:12)
[2020-10-30 05:14] LABS: ALANINE AMINOTRANSFERASE 19 Units/L (12-78); ALBUMIN 2.3 g/dL (3.4-5.0); ALKALINE PHOSPHATASE 72 Units/L (46-116); ASPARTATE AMINO TRANSFERASE 34 Units/L (15-37); BLOOD UREA NITROGEN 2 mg/dL (7-18); CALCIUM 8.4 mg/dL (8.5-10.1); CARBON DIOXIDE 28.9 mmol/L (21-32); CHLORIDE 109 mmol/L (98-107); COR CA(FOR HYPOALB) 9.8 mg/dL (8.5-10.1); COR NA(FOR HYPERGLY) 150 mmol/L (136-145); SODIUM 148 mmol/L (136-145); TOTAL PROTEIN 5.7 g/dL (6.4-8.2); eGFR NON BLACK RACES > 60 (>60)
[2020-10-30] MEDS: CHRONULAC PO SCH ×3 (05:15→21:02)
[2020-10-30] MEDS: ZOSYN VIAL 3.375 GRAMS 3.375 G in NS 100 ML IV + SPIKE MINIBAG* 100 ML IV SCH ×3 (05:15→21:01)
[2020-10-30] MEDS: KLOR-CON PO PRN (05:37)
[2020-10-30 05:38] LABS: ANISOCYTOSIS 1+; PLATELET MORPHOLOGY COMMENT NORMAL (NORMAL)
[2020-10-30] MEDS: THIAMINE HCL IV SCH ×6 (08:34)
[2020-10-30] MEDS: D5W IV SCH ×6 (08:34)
[2020-10-30] MEDS: PROTONIX INJ 40 MG VIAL IVP SCH ×2 (08:34→21:02)
[2020-10-30] MEDS: MVI IV SCH ×6 (08:34)
[2020-10-30] MEDS: [UNRECOGNIZED DRUG - OTHER] IV SCH ×6 (08:34)
[2020-10-30] MEDS: LASIX IVP SCH ×2 (08:34→21:00)
[2020-10-30] MEDS: XIFAXAN PO SCH ×2 (08:35→21:01)
[2020-10-30] MEDS: ALBUMIN HUMAN 25%- 100 ML 100 ML IV SCH (08:35)
[2020-10-30] MEDS: PEPCID 20 MG IV PREMIX* 20 MG/50 ML BAG IV SCH (08:36)
[2020-10-30] MEDS: K-DUR TAB 20 MEQ PO SCH (08:37)
[2020-10-30] MEDS: LOTRISONE CREAM 15 G TOP SCH ×4 (09:00→21:01)
[2020-10-30] MEDS ORDERED: NS 250 ML IV 250 ML IV ONE ×2 (09:44→14:32)
--- NOTE | 2020-10-30 11:13 | PCM.PROG ---
Progress Note - Progress Note for Day of Date of Exam: 10/30/20 - Subjective Subjective: IS BEING TREATED FOR HYPOCHROMIC MICROCYTIC ANEMIA, PNEUMONIA, UTI, HEPATIC ENCEPHALOPATHY, LIVER FAILURE, THROMYBOCYTOPENIA, ACUTE HYPOKALEMIA, AND ABNORMAL LFTs. SHE HAS RECEIVED FOUR UNITS OF PRBC SINCE ADMISSION. HGB HAS REMAINED STABLE. STAFF REPORTS THAT THEY HAVE BEEN UNABLE TO GIVE PATIENT HER ORAL MEDICATIONS DUE TO DROWSINESS. TODAY, SHE IS LYING IN BED WITH EYES CLOSED ON MORNING ROUNDS. SHE ONLY MOANS TO PAINFUL STIMULI, BUT DOES NOT OPEN EYES OR RESPOND VERBALLY. ON EXAMINATION, SKIN AND SCLERA REMAIN JAUNDICED. THERE IS AN NG TUBE NOTED. HEART IS REGULAR IN RATE AND RHYTHM. BILATERAL LUNGS ARE NOTED WITH RHONCHI THROUGHOUT. ABDOMEN IS DISTENDED. HYPOACTIVE BOWEL SOUNDS ARE NOTED THIS MORNING. SHE CONTINUES WITH 1+ PITTING EDEMA TO UPPER AND LOWER EXTREMITIES. HER VITALS THIS MORNING ARE: 99.6-109-24-94%-133/65. LABS WERE OBTAINED. ABNORMAL LAB VALUES INCLUDE THE FOLLOWING: WBC 13.6, RBC 2.70, HGB 8.0, HCT 25.4, PLT COUNT 122, SODIUM 148, POTASSIUM 2.7, CHLORIDE 109, BUN 2, GLUCOSE 167, CALCIUM 8.4, TOTAL BILI 12.30, AMMONIA 131, CRP 120.20, BNP 1140, TOTAL PROTEIN 5.7, ALBUMIN 2.3. URINE CULTURE REPORTS GROWTH OF GRAM NEGATIVE RODS. CHEST XRAY WAS OBTAINED AND REVEALED: 1. Unchanged pneumonia on the right knee increased on the left. 2. Possible left lower lobe pneumonia. 3. Unchanged cardiomegaly. SHE IS CURRENTLY RECEIVING A BANANA BAG WITH THIAMINE/ MAGNESIUM/ PHENOBARBITAL, ALBUMIN 25% IV DAILY, LASIX 40MG IV Q12H, PEPCID 20MG IV DAILY, PROTONIX 40MG IV BID, MORPHINE 1-2MG IV Q4H PRN, ZOFRAN 4MG IV Q6H PRN, AND THE POTASSIUM AND MAGNESIUM PROTOCOLS, LACTULOSE, XIFAXIN, NEB TX Q6H, AND ZOSYN 3.375G IV TID. WE WILL ADD LEVAQUIN 500MG IV DAILY. OTHERWISE, WE WILL CONTINUE WITH CURRENT PLAN OF CARE TODAY. OTHERWISE, WE WILL CONTINUE WITH CURRENT PLAN OF CARE. WE PLAN TO FOLLOW UP WITH AM LABS AND CONTINUE TO MONITOR. TIME SPENT ON CLINICAL ASSESSMENT, REVIEWING LABS AND IMAGING, DECISION MAKING, AND DOCUMENTATION GREATER THAN 75 MINUTES. - Past Medical Family Social History Past Med/Fam/Surg Hx: No changes since H&P Allergies: Allergies No Known Drug Allergies Allergy (Verified 08/03/18 17:37) - Review of Systems ROS: No change since H&P - Vital Signs and I&O's Vital Signs: Temperature 99.6 F Pulse Rate 114 Respiratory Rate 24 Blood Pressure [Left Arm] 152/80 Blood Pressure [Right Arm] 176/74 Blood Pressure 143/65 O2 Sat by Pulse Oximetry 94 Intake and Output: Intake & Output 10/27/20 10/28/20 10/29/20 10/30/20 11:59 11:59 11:59 11:59 Intake Total 3424 / 3424 2570 / 2570 1723 / 1723 1895 / 1895 Output Total 1860 / 1860 725 / 725 1805 / 1805 3275 / 3275 Balance 1564 / 1564 1845 / 1845 -82 / -82 -1380 / -1380 - Physical Exam Oriented: Unable to test Eyes: Normal Ear: Normal Nose: Normal Throat: Normal Respiratory: Generalized, Rhonchi Cardiovascular: Normal : Normal Auscultation: Bowel Sounds: Normal, Absent Palpation: Normal Tenderness: Normal Skin: Wound (MULTIPLE STAGE II PRESSURE ULCERS TO THE PERINEUM AND SACRUM ) Musculoskeletal: Normal Psychiatric: Other Mood Description: Flat Affect: Flat Speech Pattern: Unclear, Delayed - Laboratory and Diagnostics Result Diagrams: 10/30/20 04:03 10/30/20 04:03 Labs: 10/24/20 10:10 Urine,Catheterized Urine Culture - Final Escherichia Coli Proteus Mirabilis Laboratory WBC 13.6 X10^3/uL (3.6-10.0) H 10/30/20 04:03 RBC 2.70 X10^6/uL (3.5-5.4) L 10/30/20 04:03 Hgb 8.0 g/dL (12.0-16.0) L 10/30/20 04:03 Hct 25.4 % (36.0-47.0) L 10/30/20 04:03 MCV 94.0 fL (80.0-100.0) 10/30/20 04:03 MCH 29.5 pg (27.0-34.0) 10/30/20 04:03 MCHC 31.4 g/dL (33.0-35.0) L 10/30/20 04:03 RDW 20.6 % (11.6-16.5) H 10/30/20 04:03 Plt Count 122 X10^3/uL (150.0-450.0) L 10/30/20 04:03 Plt Count Comment Decreased (ADEQUATE) A 10/30/20 04:03 MPV 9.2 fL (7.4-11.0) 10/30/20 04:03 Neut % (Auto) 81.4 % (42.0-75.0) H 10/30/20 04:03 Lymph % (Auto) 10.1 % (21.0-51.0) L 10/30/20 04:03 [place] % (Auto) 7.2 % (0.0-13.0) 10/30/20 04:03 Eos % (Auto) 0.8 % (0.9-2.9) L 10/30/20 04:03 Baso % (Auto) 0.5 % (0.2-1.0) 10/30/20 04:03 Neut # (Auto) 11.1 x10^3/uL (2.2-4.8) H 10/30/20 04:03 Lymph # (Auto) 1.4 X10^3/uL (1.3-2.9) 10/30/20 04:03 [place] # (Auto) 1.0 x10^3/uL (0.3-0.8) H 10/30/20 04:03 Eos # (Auto) 0.1 x10^3/uL (0.0-0.2) 10/30/20 04:03 Baso # (Auto) 0.1 X10^3/uL (0.0-0.1) 10/30/20 04:03 Absolute Nucleated RBC 0.1 /100WBC 10/30/20 04:03 Plt Morphology Comment Normal (NORMAL) 10/30/20 04:03 RBC Morphology Abnormal (NORMAL) A 10/30/20 04:03 Dimorphic RBCs 2+ 10/24/20 10:00 Hypochromasia 2+ A 10/24/20 10:00 Poikilocytosis Slight A 10/24/20 10:00 Anisocytosis 1+ A 10/30/20 04:03 Microcytosis 1+ A 10/24/20 10:00 PT 27.7 SECONDS (11.8-14.3) 10/29/20 04:23 INR Target Range - 10/29/20 04:23 INR 2.74 (0.8-1.3) H 10/29/20 04:23 Sodium 148 mmol/L (136-145) H 10/30/20 04:03 Corrected Sodium 150 mmol/L (136-145) H 10/30/20 04:03 Potassium 2.7 mmol/L (3.5-5.1) L* 10/30/20 04:03 Chloride 109 mmol/L (98-107) H 10/30/20 04:03 Carbon Dioxide 28.9 mmol/L (21-32) 10/30/20 04:03 BUN 2 mg/dL (7-18) L 10/30/20 04:03 Creatinine 0.90 mg/dL (0.55-1.02) 10/30/20 04:03 Est GFR (MDRD) Af Amer > 60 (>60) 10/30/20 04:03 Est GFR (MDRD) Non-Af > 60 (>60) 10/30/20 04:03 Glucose 167 mg/dL (65-99) H 10/30/20 04:03 Hemoglobin A1c Cancelled 10/24/20 10:00 Calcium 8.4 mg/dL (8.5-10.1) L 10/30/20 04:03 Corrected Calcium 9.8 mg/dL (8.5-10.1) 10/30/20 04:03 Magnesium 1.4 mg/dL (1.7-2.9) L 10/29/20 04:23 Iron 10 ug/dL (50-175) L 10/24/20 10:00 TIBC 254 ug/dL (250-450) 10/24/20 10:00 Ferritin 30 ng/mL (8-252) 10/24/20 10:00 Total Bilirubin 12.30 mg/dL (0.2-1.0) H 10/30/20 04:03 Direct Bilirubin 7.30 mg/dL (0-0.2) H* 10/26/20 04:35 Indirect Bilirubin 2.20 mg/dL (0.2-0.8) H 10/26/20 04:35 AST 34 Units/L (15-37) 10/30/20 04:03 ALT 19 Units/L (12-78) 10/30/20 04:03 Alkaline Phosphatase 72 Units/L (46-116) 10/30/20 04:03 Ammonia 131 umol/L (11-32) H 10/30/20 04:03 Creatine Kinase 160 Units/L (26-192) 10/24/20 10:00 CK-MB (CK-2) 4.0 ng/mL (0-4.0) 10/24/20 10:00 CK/CKMB % Calc 2.5 % (<4) 10/24/20 10:00 Troponin I < 0.02 ng/mL (0-1.5) 10/24/20 10:00 C-Reactive Protein 120.20 mg/L (0-3.0) H 10/30/20 04:03 B-Natriuretic Peptide 1140 pg/mL (0-79) H* 10/30/20 04:03 Total Protein 5.7 g/dL (6.4-8.2) L 10/30/20 04:03 Albumin 2.3 g/dL (3.4-5.0) L 10/30/20 04:03 Globulin 3.4 g/dL (2.5-4.5) 10/30/20 04:03 Albumin/Globulin Ratio 0.7 Ratio (1.1-2.1) L 10/30/20 04:03 Amylase 25 Units/L (25-115) 10/24/20 10:00 Lipase 120 Units/L (73-393) 10/24/20 10:00 Vitamin B12 > 2000 pg/mL (193-986) H 10/24/20 10:00 Folate 6.7 ng/mL (>8.6) L 10/24/20 10:00 Specimen Type Catherized urine 10/24/20 10:10 Urine Color Dark yellow (YELLOW) 10/24/20 10:10 Urine Appearance Hazy (CLEAR) 10/24/20 10:10 Urine pH 7.0 (5.0 - 8.0) 10/24/20 10:10 Ur Specific [place] 1.010 (1.000-1.030) 10/24/20 10:10 Urine Protein 2+ (NEGATIVE) 10/24/20 10:10 Urine Glucose (UA) Negative (NEGATIVE) 10/24/20 10:10 Urine Ketones 1+ (NEGATIVE) 10/24/20 10:10 Urine Occult Blood 1+ (NEGATIVE) 10/24/20 10:10 Urine Nitrite Negative (NEGATIVE) 10/24/20 10:10 Urine Bilirubin 2+ (NEGATIVE) 10/24/20 10:10 Urine Urobilinogen 3+ (NORMAL) 10/24/20 10:10 Ur Leukocyte Esterase 3+ (NEGATIVE) 10/24/20 10:10 Urine RBC 3-5 /HPF (0-3) A 10/24/20 10:10 Urine WBC 20-30 /HPF (0-5) A 10/24/20 10:10 Ur Squamous Epith Cells Few /HPF (NEGATIVE) 10/24/20 10:10 Urine Bacteria 1+ /HPF (NEGATIVE) 10/24/20 10:10 Hyaline Casts Few /LPF (NEGATIVE) 10/24/20 10:10 Ur Culture Indicated? Yes/culture set up 10/24/20 10:10 Stool Description Fob tube 10/26/20 14:55 Stl Occult Blood (IFOB) Negative (NEGATIVE) 10/26/20 14:55 Urine Opiates Screen Negative (NEG=<300) 10/24/20 10:10 Urine Methadone Screen Negative (NEG=<300) 10/24/20 10:10 Ur Barbiturates Screen Negative (NEG=<200) 10/24/20 10:10 Ur Phencyclidine Scrn Negative (NEG=<25) 10/24/20 10:10 Ur Amphetamines Screen Negative (NEG=<1000) 10/24/20 10:10 U Benzodiazepines Scrn Negative (NEG=<200) 10/24/20 10:10 Urine Cocaine Screen Negative (NEG=<300) 10/24/20 10:10 U Marijuana (THC) Screen Negative (NEG=<50) 10/24/20 10:10 SARS CoV-2 RNA Rapid VIMAL Negative (NEGATIVE) 10/24/20 13:29 Blood Type O POSITIVE 10/24/20 10:34 Antibody Screen Negative 10/24/20 10:34 Crossmatch See Detail 10/24/20 10:34 - Plan (1) Hypochromic microcytic anemia Status: Acute Plan: BANANA BAG WITH MVI/THIAMINE/ MAGNESIUM/ PHENOBARBITAL, ZOSYN TID, LEVAQUIN 500MG IV DAILY, LASIX 40MG IV BID, NEB TX, XIFAXIN, LACTULOSE, ALBUMIN 25% IV DAILY, PEPCID 20MG IV DAILY, PROTONIX 40MG IV BID, MORPHINE 1-2MG IV Q4H PRN, ZOFRAN 4MG IV Q6H PRN, AND THE POTASSIUM AND MAGNESIUM PROTOCOLS (2) Pneumonia Status: Acute Qualifiers: Pneumonia type: due to unspecified organism Laterality: right Lung location: upper lobe of lung Qualified Code(s): J18.9 - Pneumonia, unspecified organism (3) UTI (urinary tract infection) Status: Acute Qualifiers: Urinary tract infection type: acute cystitis Hematuria presence: with hematuria Qualified Code(s): N30.01 - Acute cystitis with hematuria (4) Thrombocytopenia Status: Acute (5) Acute hypokalemia Status: Acute (6) Abnormal LFTs (liver function tests) Status: Acute Plan: CONSULT GI
[2020-10-30] MEDS: LEVAQUIN PREMIX IV 500 MG 500 MG/100 ML BAG IV SCH (12:13)
[2020-10-30] MEDS: MAGNESIUM SULFATE 1 GRAM/100 mL PREMIX 1 GM/100 ML BAG IV PRN ×6 (14:00→21:00)
[2020-10-30] MEDS ORDERED: ZOSYN VIAL 3.375 GRAMS IV ONE ×2 (14:34→19:41)
[2020-10-30] MEDS ORDERED: NS 100 ML IV + SPIKE MINIBAG* 100 ML IV ONE (19:43)
[2020-10-31] MEDS: XOPENEX 1.25 MG/3 ML NEBULE NEB SCH ×4 (00:42→17:12)
[2020-10-31] MEDS: [UNRECOGNIZED DRUG - OTHER] IV SCH ×6 (03:49)
[2020-10-31] MEDS: MVI IV SCH ×6 (03:49)
[2020-10-31] MEDS: D5W IV SCH ×6 (03:49)
[2020-10-31] MEDS: THIAMINE HCL IV SCH ×6 (03:49)
[2020-10-31 05:22] LABS: MAGNESIUM 1.8 mg/dL (1.7-2.9)
[2020-10-31] MEDS: CHRONULAC PO SCH ×3 (05:34→21:05)
[2020-10-31] MEDS: ZOSYN VIAL 3.375 GRAMS 3.375 G in NS 100 ML IV + SPIKE MINIBAG* 100 ML IV SCH ×3 (05:34→21:05)
[2020-10-31] MEDS: ALBUMIN HUMAN 25%- 100 ML 100 ML IV SCH (08:11)
[2020-10-31] MEDS: PEPCID 20 MG IV PREMIX* 20 MG/50 ML BAG IV SCH (08:11)
[2020-10-31] MEDS: LEVAQUIN PREMIX IV 500 MG 500 MG/100 ML BAG IV SCH (08:11)
[2020-10-31] MEDS: K-DUR TAB 20 MEQ PO SCH (08:12)
[2020-10-31] MEDS: XIFAXAN PO SCH ×2 (08:12→20:58)
[2020-10-31] MEDS: LASIX IVP SCH ×2 (08:12→20:58)
[2020-10-31] MEDS: PROTONIX INJ 40 MG VIAL IVP SCH ×2 (08:12→20:58)
[2020-10-31] MEDS: LOTRISONE CREAM 15 G TOP SCH ×4 (08:13→20:58)
[2020-10-31 08:58] LABS: BASOPHILS # (AUTO) 0.1 X10^3/uL (0.0-0.1); BASOPHILS % (AUTO) 0.6 % (0.2-1.0); EOSINOPHILS # (AUTO) 0.1 x10^3/uL (0.0-0.2); EOSINOPHILS % (AUTO) 0.7 % (0.9-2.9); HEMATOCRIT 24.8 % (36.0-47.0); HEMOGLOBIN 7.8 g/dL (12.0-16.0); LYMPHOCYTES # (AUTO) 1.2 X10^3/uL (1.3-2.9); LYMPHOCYTES % (AUTO) 9.4 % (21.0-51.0); MEAN CORPUSCULAR HEMOGLOBIN 29.6 pg (27.0-34.0); MEAN CORPUSCULAR HGB CONC 31.5 g/dL (33.0-35.0); MEAN PLATELET VOLUME 9.7 fL (7.4-11.0); MONOCYTES # (AUTO) 1.3 x10^3/uL (0.3-0.8); NEUTROPHILS # (AUTO) 10.3 x10^3/uL (2.2-4.8); NEUTROPHILS % (AUTO) 79.3 % (42.0-75.0); PLATELET COUNT 86 X10^3/uL (150.0-450.0); RED BLOOD COUNT 2.64 X10^6/uL (3.5-5.4); RED CELL DISTRIBUTION WIDTH 23.1 % (11.6-16.5); WHITE BLOOD COUNT 13.1 X10^3/uL (3.6-10.0)
[2020-10-31 09:15] LABS: ANISOCYTOSIS 2+; PLATELET MORPHOLOGY COMMENT NORMAL (NORMAL)
[2020-10-31 09:28] LABS: ALANINE AMINOTRANSFERASE 19 Units/L (12-78); ALBUMIN 2.1 g/dL (3.4-5.0); ALKALINE PHOSPHATASE 60 Units/L (46-116); ASPARTATE AMINO TRANSFERASE 55 Units/L (15-37); BLOOD UREA NITROGEN 1 mg/dL (7-18); CALCIUM 8.5 mg/dL (8.5-10.1); CARBON DIOXIDE 35.4 mmol/L (21-32); CHLORIDE 109 mmol/L (98-107); COR NA(FOR HYPERGLY) 150 mmol/L (136-145); CREATININE 0.78 mg/dL (0.55-1.02); SODIUM 149 mmol/L (136-145); TOTAL PROTEIN 5.4 g/dL (6.4-8.2); eGFR NON BLACK RACES > 60 (>60)
--- NOTE | 2020-10-31 10:04 | PCM.PROG ---
Progress Note - Progress Note for Day of Date of Exam: 10/31/20 - Subjective Subjective: IS BEING TREATED FOR HYPOCHROMIC MICROCYTIC ANEMIA, PNEUMONIA, UTI, HEPATIC ENCEPHALOPATHY, LIVER FAILURE, THROMYBOCYTOPENIA, ACUTE HYPOKALEMIA, AND ABNORMAL LFTs. SHE HAS RECEIVED FOUR UNITS OF PRBC SINCE ADMISSION. HGB HAS REMAINED STABLE. TODAY, SHE IS LYING IN BED WITH EYES CLOSED ON MORNING ROUNDS. SHE ONLY MOANS TO PAINFUL STIMULI, BUT DOES NOT OPEN EYES OR RESPOND VERBALLY. ON EXAMINATION, SKIN AND SCLERA REMAIN JAUNDICED, MORESO TODAY COMPARED TO YESTERDAY. THERE IS AN NG TUBE NOTED. STAFF REPORTS THAT NG TUBE IS OBSTRUCTED THIS MORNING. HEART IS REGULAR IN RATE AND RHYTHM. BILATERAL LUNGS ARE NOTED WITH RHONCHI THROUGHOUT. ABDOMEN IS DISTENDED. HYPOACTIVE BOWEL SOUNDS ARE NOTED THIS MORNING. SHE CONTINUES WITH 1+ PITTING EDEMA TO UPPER AND LOWER EXTREMITIES. HER VITALS THIS MORNING ARE: 99.7-76-20-97%-104/54. LABS WERE OBTAINED. ABNORMAL LAB VALUES INCLUDE THE FOLLOWING: WBC 13.1, RBC 2.64, HGB 7.8, HCT 24.8, PLT COUNT 86, SODIUM 149, POTASSIUM 3.2, CHLORIDE 109, CARBON DIXOIDE 35.1, BUN 1, GLUCOSE 149, TOTAL BILI 12.60, AST 55, CRP 126.30, BNP 1180, TOTAL PROTEIN 5.4, ALBUMIN 2.1. URINE CULTURE REPORTS GROWTH OF GRAM NEGATIVE RODS. BLOOD CULTURES ARE PENDING. SHE IS CURRENTLY RECEIVING A BANANA BAG WITH THIAMINE/ MAGNESIUM/ PHENOBARBITAL, ALBUMIN 25% IV DAILY, LASIX 40MG IV Q12H, PEPCID 20MG IV DAILY, PROTONIX 40MG IV BID, MORPHINE 1-2MG IV Q4H PRN, ZO ADRIANA 4MG IV Q6H PRN, AND THE POTASSIUM AND MAGNESIUM PROTOCOLS, LACTULOSE, XIFAXIN, NEB TX Q6H, LEVAQUIN 500MG IV DAILY, AND ZOSYN 3.375G IV TID. WE WILL CHANGE NG TUBE TODAY. OTHERWISE, WE WILL CONTINUE WITH CURRENT PLAN OF CARE TODAY. WE WILL DISCUSS PATIENTS DECLINING CONDITION WITH HER FAMILY MEMBERS AND DISUSS FURTHER PLANS FOR TREATMENT. IS CONSULTING FOR A CENTRAL LINE AT THIS TIME DUE TO POOR VENOUS ACCESS. TIME SPENT ON CLINICAL ASSESSMENT, REVIEWING LABS AND IMAGING, DECISION MAKING, AND DOCUMENTATION GREATER THAN 75 MINUTES. - Past Medical Family Social History Past Med/Fam/Surg Hx: No changes since H&P Allergies: Allergies No Known Drug Allergies Allergy (Verified 08/03/18 17:37) - Review of Systems ROS: No change since H&P - Vital Signs and I&O's Vital Signs: Temperature 99.7 F Pulse Rate 76 Respiratory Rate 20 Blood Pressure [Left Arm] 152/80 Blood Pressure [Right Arm] 176/74 Blood Pressure 104/54 O2 Sat by Pulse Oximetry 97 Intake and Output: Intake & Output 10/28/20 10/29/20 10/30/20 10/31/20 11:59 11:59 11:59 11:59 Intake Total 2570 / 2570 1723 / 1723 1895 / 1895 2523 / 2523 Output Total 725 / 725 1805 / 1805 3275 / 3275 4350 / 4350 Balance 1845 / 1845 -82 / -82 -1380 / -1380 -1827 / -1827 - Physical Exam Oriented: Unable to test Eyes: Normal Ear: Normal Nose: Normal Throat: Normal Respiratory: Generalized, Rhonchi Cardiovascular: Normal : Normal Auscultation: Bowel Sounds: Normal, Absent Palpation: Normal Tenderness: Normal Skin: Wound (MULTIPLE STAGE II PRESSURE ULCERS TO THE PERINEUM AND SACRUM ) Musculoskeletal: Normal Mood Description: Flat Affect: Flat - Laboratory and Diagnostics Result Diagrams: 10/31/20 08:34 10/31/20 08:34 Labs: 10/24/20 10:10 Urine,Catheterized Urine Culture - Final Escherichia Coli Proteus Mirabilis [facility] WBC 13.1 X10^3/uL (3.6-10.0) H 10/31/20 08:34 RBC 2.64 X10^6/uL (3.5-5.4) L 10/31/20 08:34 Hgb 7.8 g/dL (12.0-16.0) L 10/31/20 08:34 Hct 24.8 % (36.0-47.0) L 10/31/20 08:34 MCV 94.0 fL (80.0-100.0) 10/31/20 08:34 MCH 29.6 pg (27.0-34.0) 10/31/20 08:34 MCHC 31.5 g/dL (33.0-35.0) L 10/31/20 08:34 RDW 23.1 % (11.6-16.5) H 10/31/20 08:34 Plt Count 86 X10^3/uL (150.0-450.0) L 10/31/20 08:34 Plt Count Comment Decreased (ADEQUATE) A 10/31/20 08:34 MPV 9.7 fL (7.4-11.0) 10/31/20 08:34 Neut % (Auto) 79.3 % (42.0-75.0) H 10/31/20 08:34 Lymph % (Auto) 9.4 % (21.0-51.0) L 10/31/20 08:34 Hunt % (Auto) 10.0 % (0.0-13.0) 10/31/20 08:34 Eos % (Auto) 0.7 % (0.9-2.9) L 10/31/20 08:34 Baso % (Auto) 0.6 % (0.2-1.0) 10/31/20 08:34 Neut # (Auto) 10.3 x10^3/uL (2.2-4.8) H 10/31/20 08:34 Lymph # (Auto) 1.2 X10^3/uL (1.3-2.9) L 10/31/20 08:34 Hunt # (Auto) 1.3 x10^3/uL (0.3-0.8) H 10/31/20 08:34 Eos # (Auto) 0.1 x10^3/uL (0.0-0.2) 10/31/20 08:34 Baso # (Auto) 0.1 X10^3/uL (0.0-0.1) 10/31/20 08:34 Absolute Nucleated RBC 0.1 /100WBC 10/31/20 08:34 Plt Morphology Comment Normal (NORMAL) 10/31/20 08:34 RBC Morphology Abnormal (NORMAL) A 10/31/20 08:34 Dimorphic RBCs 2+ 10/24/20 10:00 Hypochromasia 2+ A 10/24/20 10:00 Poikilocytosis Slight A 10/24/20 10:00 Anisocytosis 2+ A 10/31/20 08:34 Microcytosis 1+ A 10/24/20 10:00 PT 27.7 SECONDS (11.8-14.3) 10/29/20 04:23 INR Target Range - 10/29/20 04:23 INR 2.74 (0.8-1.3) H 10/29/20 04:23 Sodium 149 mmol/L (136-145) H 10/31/20 08:34 Corrected Sodium 150 mmol/L (136-145) H 10/31/20 08:34 Potassium 3.2 mmol/L (3.5-5.1) L 10/31/20 08:34 Chloride 109 mmol/L (98-107) H 10/31/20 08:34 Carbon Dioxide 35.4 mmol/L (21-32) H 10/31/20 08:34 BUN 1 mg/dL (7-18) L 10/31/20 08:34 Creatinine 0.78 mg/dL (0.55-1.02) 10/31/20 08:34 Est GFR (MDRD) Af Amer > 60 (>60) 10/31/20 08:34 Est GFR (MDRD) Non-Af > 60 (>60) 10/31/20 08:34 Glucose 149 mg/dL (65-99) H 10/31/20 08:34 Hemoglobin A1c Cancelled 10/24/20 10:00 Calcium 8.5 mg/dL (8.5-10.1) 10/31/20 08:34 Corrected Calcium 10.0 mg/dL (8.5-10.1) 10/31/20 08:34 Magnesium 1.8 mg/dL (1.7-2.9) 10/31/20 04:26 Iron 10 ug/dL (50-175) L 10/24/20 10:00 TIBC 254 ug/dL (250-450) 10/24/20 10:00 Ferritin 30 ng/mL (8-252) 10/24/20 10:00 Total Bilirubin 12.60 mg/dL (0.2-1.0) H 10/31/20 08:34 Direct Bilirubin 7.30 mg/dL (0-0.2) H* 10/26/20 04:35 Indirect Bilirubin 2.20 mg/dL (0.2-0.8) H 10/26/20 04:35 AST 55 Units/L (15-37) H 10/31/20 08:34 ALT 19 Units/L (12-78) 10/31/20 08:34 Alkaline Phosphatase 60 Units/L (46-116) 10/31/20 08:34 Ammonia 118 umol/L (11-32) H 10/31/20 04:26 Creatine Kinase 160 Units/L (26-192) 10/24/20 10:00 CK-MB (CK-2) 4.0 ng/mL (0-4.0) 10/24/20 10:00 CK/CKMB % Calc 2.5 % (<4) 10/24/20 10:00 Troponin I < 0.02 ng/mL (0-1.5) 10/24/20 10:00 C-Reactive Protein 126.30 mg/L (0-3.0) H 10/31/20 04:26 B-Natriuretic Peptide 1180 pg/mL (0-79) H* 10/31/20 04:26 Total Protein 5.4 g/dL (6.4-8.2) L 10/31/20 08:34 Albumin 2.1 g/dL (3.4-5.0) L 10/31/20 08:34 Globulin 3.3 g/dL (2.5-4.5) 10/31/20 08:34 Albumin/Globulin Ratio 0.6 Ratio (1.1-2.1) L 10/31/20 08:34 Amylase 25 Units/L (25-115) 10/24/20 10:00 Lipase 120 Units/L (73-393) 10/24/20 10:00 Vitamin B12 > 2000 pg/mL (193-986) H 10/24/20 10:00 Folate 6.7 ng/mL (>8.6) L 10/24/20 10:00 Specimen Type Catherized urine 10/24/20 10:10 Urine Color Dark yellow (YELLOW) 10/24/20 10:10 Urine Appearance Hazy (CLEAR) 10/24/20 10:10 Urine pH 7.0 (5.0 - 8.0) 10/24/20 10:10 Ur Specific [place] 1.010 (1.000-1.030) 10/24/20 10:10 Urine Protein 2+ (NEGATIVE) 10/24/20 10:10 Urine Glucose (UA) Negative (NEGATIVE) 10/24/20 10:10 Urine Ketones 1+ (NEGATIVE) 10/24/20 10:10 Urine Occult Blood 1+ (NEGATIVE) 10/24/20 10:10 Urine Nitrite Negative (NEGATIVE) 10/24/20 10:10 Urine Bilirubin 2+ (NEGATIVE) 10/24/20 10:10 Urine Urobilinogen 3+ (NORMAL) 10/24/20 10:10 Ur Leukocyte Esterase 3+ (NEGATIVE) 10/24/20 10:10 Urine RBC 3-5 /HPF (0-3) A 10/24/20 10:10 Urine WBC 20-30 /HPF (0-5) A 10/24/20 10:10 Ur Squamous Epith Cells Few /HPF (NEGATIVE) 10/24/20 10:10 Urine Bacteria 1+ /HPF (NEGATIVE) 10/24/20 10:10 Hyaline Casts Few /LPF (NEGATIVE) 10/24/20 10:10 Ur Culture Indicated? Yes/culture set up 10/24/20 10:10 Stool Description Fob tube 10/26/20 14:55 Stl Occult Blood (IFOB) Negative (NEGATIVE) 10/26/20 14:55 Urine Opiates Screen Negative (NEG=<300) 10/24/20 10:10 Urine Methadone Screen Negative (NEG=<300) 10/24/20 10:10 Ur Barbiturates Screen Negative (NEG=<200) 10/24/20 10:10 Ur Phencyclidine Scrn Negative (NEG=<25) 10/24/20 10:10 Ur Amphetamines Screen Negative (NEG=<1000) 10/24/20 10:10 U Benzodiazepines Scrn Negative (NEG=<200) 10/24/20 10:10 Urine Cocaine Screen Negative (NEG=<300) 10/24/20 10:10 U Marijuana (THC) Screen Negative (NEG=<50) 10/24/20 10:10 SARS CoV-2 RNA Rapid VIMAL Negative (NEGATIVE) 10/24/20 13:29 Blood Type O POSITIVE 10/24/20 10:34 Antibody Screen Negative 10/24/20 10:34 Crossmatch See Detail 10/24/20 10:34 - Plan (1) Hypochromic microcytic anemia Status: Acute Plan: BANANA BAG WITH MVI/THIAMINE/ MAGNESIUM/ PHENOBARBITAL, ZOSYN TID, LEVAQUIN 500MG IV DAILY, LASIX 40MG IV BID, NEB TX, XIFAXIN, LACTULOSE, ALBUMIN 25% IV DAILY, PEPCID 20MG IV DAILY, PROTONIX 40MG IV BID, MORPHINE 1-2MG IV Q4H PRN, ZOFRAN 4MG IV Q6H PRN, AND THE POTASSIUM AND MAGNESIUM PROTOCOLS (2) Pneumonia Status: Acute Qualifiers: Pneumonia type: due to unspecified organism Laterality: right Lung location: upper lobe of lung Qualified Code(s): J18.9 - Pneumonia, unspecified organism (3) UTI (urinary tract infection) Status: Acute Qualifiers: Urinary tract infection type: acute cystitis Hematuria presence: with ken turia Qualified Code(s): N30.01 - Acute cystitis with hematuria (4) Thrombocytopenia Status: Acute (5) Acute hypokalemia Status: Acute (6) Abnormal LFTs (liver function tests) Status: Acute Plan: CONSULT GI
--- NOTE | 2020-10-31 10:23 | RAD ---
HISTORYCENTRAL LINE PLACEMENTSTUDYCHEST, 1 OBQBOADXOTPRIG13/27/2021.TECHNIQUEAP chest, 2 imagesFINDINGSRight subclavian approach central line with tip in the right atrium. NG tube in good position.The cardiac and mediastinal contours appear stable. No significant change in bilateral airspace and interstitial opacities. No pneumothorax.IMPRESSIONThe right subclavian approach central line tip is within the right atrium. Consider 3 cm retraction for more optimal placement.Electronically signed by: Trevin Fry (Oct 31, 2020 10:21:26)
--- NOTE | 2020-10-31 10:28 | RAD ---
HISTORYNG tube placementSTUDYKUBCOMPARISONNoneFINDINGSNasogastric tube tip and side hole are well within the stomach . The abdominal gas pattern is nonspecific and nonobstructive. No abnormal masses or abnormal calcifi cations are identified. Regional skeleton is intact.IMPRESSIONNGT tube in side-hole well within the e xpected position of the stomachElectronically signed by: SHAMAR MCKEON (Oct 31, 2020 10:26:24)
[2020-10-31 16:47] LABS: HCV VIRAL LOG Not Detected log IU/mL
[2020-10-31] MEDS: MORPHINE SULFATE INJ 2 MG INJ IVP PRN (21:47)
[2020-10-31] MEDS ORDERED: ATIVAN INJ 2 MG VIAL IVP PRN (23:02)
[2020-10-31] MEDS ORDERED: MORPHINE SULFATE INJ 2 MG INJ IVP PRN (23:03)
[2020-11-01] MEDS ORDERED: ATIVAN INJ 2 MG VIAL IVP PRN (09:32)
[2020-11-01] MEDS ORDERED: MORPHINE SULFATE INJ 2 MG INJ IVP PRN (09:32)
[2020-11-01] MEDS: VERSED IV PREMIX 100 MG/100 ML IV.SOLN IV PRN (17:30)
[2020-11-01] MEDS: MORPHINE SULFATE PCA 30 MG IVP PRN ×3 (17:30→18:33)
[2020-11-02] MEDS: VERSED IV PREMIX 100 MG/100 ML IV.SOLN IV PRN (01:09)
[2020-11-02] MEDS: MORPHINE SULFATE PCA 30 MG IVP PRN ×2 (01:10→08:07)
[2020-11-02] MEDS ORDERED: MORPHINE SULFATE PCA 30 MG IVP PRN (08:21)
[2020-11-02 09:50] VITALS: BP 44/21
== END 2020-11-02 10:30 | disposition expired | DRG 811 ==
LOC: ER 09:41 → MED/SURG 12:31 → ICU 13:11
PROVIDERS: ADMIT Internal Medicine; ATTEND Internal Medicine
DX: N30.01 Acute cystitis with hematuria; R94.5 Abnormal results of liver function studies; I50.9 Heart failure, unspecified; J18.8 Other pneumonia, unspecified organism; L89.152 Pressure ulcer of sacral region, stage 2; R41.0 Disorientation, unspecified; R79.1 Abnormal coagulation profile; Z66 Do not resuscitate; I87.2 Venous insufficiency (chronic) (peripheral); K72.90 Hepatic failure, unspecified without coma; R79.82 Elevated C-reactive protein (CRP); Z20.822 Contact with and (suspected) exposure to COVID-19; B96.4 Proteus (mirabilis) (morganii) as the cause of diseases classified elsewhere; R79.89 Other specified abnormal findings of blood chemistry; K29.70 Gastritis, unspecified, without bleeding; B96.29 Other Escherichia coli [E. coli] as the cause of diseases classified elsewhere; R60.0 Localized edema; E87.6 Hypokalemia; K21.00 Gastro-esophageal reflux disease with esophagitis, without bleeding; D50.8 Other iron deficiency anemias; K74.69 Other cirrhosis of liver